=== PATIENT | female | born 1940 | race Caucasian/White ===

== ENCOUNTER 2018-02-28 10:39 | Inpatient (IN) ==
[2018-02-28] MEDS ORDERED: Isovue-370 500 ML INFUS..BTL IV ONE (11:08)
--- NOTE | 2018-02-28 11:10 | Emergency Department Note ---
Disposition Clinical Impression: Hyponatremia Anemia Qualifiers: Anemia type: unspecified type Qualified Code(s): D64.9 - Anemia, unspecified UTI (urinary tract infection) Qualifiers: Urinary tract infection type: site unspecified Hematuria presence: without hematuria Qualified Code(s): N39.0 - Urinary tract infection, site not specified GI bleed Qualifiers: GI bleed type/associated pathology: unspecified gastrointestinal hemorrhage type Qualified Code(s): K92.2 - Gastrointestinal hemorrhage, unspecified Abdominal pain Qualifiers: Abdominal location: lower abdomen, unspecified Qualified Code(s): R10.30 - Lower abdominal pain, unspecified Disposition: Admitted As Inpatient Condition: Fair Abdominal Pain HPI - General Chief Complaint: ED Abdominal Pain Stated Complaint: ABD Pain Time Seen by Provider: 02/28/18 11:06 Source: patient Nursing Notes Reviewed: Yes Vital Signs Reviewed: Yes - History of Present Illness HPI Narrative: 77-year-old female presents emergency department with concern for lower abdominal pain. Patient has possible cancer with metastasis and abdomen. Reportedly getting biopsies this coming Thursday. Reports that she came in today because her abdomen is more distended and more painful than it has been. She reported receiving paracentesis recently. She has had it twice. Denies any fevers. Denies any chills. Nausea nausea, vomiting. Denies any hematochezia or melena. Pain Scale: 9 - Related Data Home Medications Medication Instructions Recorded Confirmed Acetaminophen [Tylenol Arthritis] 650 mg PO TID PRN 02/28/18 02/28/18 Aspirin [Adult Aspirin] 81 mg PO DAILY 02/28/18 02/28/18 Atorvastatin [Lipitor] 40 mg PO HS 02/28/18 02/28/18 Cyanocobalamin (Vitamin B-12) 1,000 mcg PO DAILY 02/28/18 02/28/18 [Vitamin B-12] Ferrous Sulfate [Iron] 325 mg PO DAILY 02/28/18 02/28/18 GlipiZIDE [Glipizide ER] 10 mg PO DAILY 02/28/18 02/28/18 Metoprolol Succinate [Toprol Xl] 50 mg PO DAILY 02/28/18 02/28/18 Omeprazole [PriLOSEC] 20 mg PO DAILY 02/28/18 02/28/18 Ondansetron HCl [Zofran] 8 mg PO Q8H PRN 02/28/18 02/28/18 Pioglitazone HCl [Actos] 45 mg PO DAILY 02/28/18 02/28/18 Potassium 99 mg PO DAILY 02/28/18 02/28/18 Pramipexole Di-HCl [Pramipexole 0.125 mg PO DAILY 02/28/18 02/28/18 Dihydrochloride] traZODone [TraZODone] 50 mg PO HS 02/28/18 02/28/18 Allergies Allergy/AdvReac Type Severity Reaction Status Date / Time No Known Allergies Allergy Verified 09/02/15 12:42 All systems ED: reviewed and negative except as stated. Review of Systems: As Per HPI Constitutional: Denies: fever Cardiovascular: Reports: chest pain Respiratory: Denies: cough, dyspnea Gastrointestinal: Reports: abdominal pain. Denies: nausea, vomiting, melena, hematochezia Genitourinary: Denies: urgency, dysuria, frequency Musculoskeletal: Denies: back pain Neurological: Denies: headache, weakness, numbness, paresthesias Endocrine: Reports: fatigue Abdominal Pain PMH - Past Medical History Medical history: Reports: coronary artery disease, diabetes, hyperlipidemia, hypertension Female Surgical History: Reports: coronary bypass (CABG), hysterectomy Psychiatric history: Reports: no psych history - Social History Smoking status: Never smoker Alcohol use: Reports: none Drug use: Reports: none Physical Exam - General Limitations: no limitations General appearance: alert, in no apparent distress - Head Head exam: normocephalic - Eye Eye exam: Present: EOMI. Absent: scleral icterus - ENT ENT exam: mucous membranes moist - Neck Neck exam: Present: trachea midline - Chest Chest inspection: Present: symmetric chest wall rise - Respiratory Respiratory exam: Present: normal lung sounds bilaterally. Absent: respiratory distress, accessory muscle use - Cardiovascular Cardiovascular exam: Present: regular rate, normal rhythm, normal heart sounds - Abdominal Exam Abdominal exam: Present: soft, Non-Tender. Absent: distention, guarding, rebound, rigidity - Extremities Exam Extremities exam: Present: normal capillary refill - Back Exam Back exam: Present: full ROM - Neurological Exam Neurological exam: Present: alert, oriented X3, CN II-XII intact - Psychiatric Psychiatric exam: Present: normal affect, normal mood - Skin Skin exam: Present: warm, dry, intact, normal color. Absent: rash Course Vital Signs Temperature 98.4 F 02/28/18 10:58 Pulse Rate 88 02/28/18 10:58 Respiratory Rate 18 02/28/18 10:58 Blood Pressure 124/77 02/28/18 10:58 O2 Sat by Pulse Oximetry 95 02/28/18 10:58 Temperature 97.9 F 02/28/18 15:20 Pulse Rate 84 02/28/18 15:20 Respiratory Rate 18 02/28/18 15:20 Blood Pressure 136/57 02/28/18 15:20 O2 Sat by Pulse Oximetry 94 02/28/18 13:16 Oxygen Delivery Oxygen Delivery Room Air Abdominal Pain - MDM Narrative Medical decision making narrative: 77-year-old female presents emergency department with concern for worsening abdominal distention and pain in setting of liver cirrhosis with ascites. We obtained CT scan of abdomen and pelvis. It revealed extensive peritoneal carcinomatosis and small volume ascites. No definite primary cancer noted. One consideration of diagnostic paracentesis for cytology. Patient's hemoglobin is 7.6. This is a low as it has been. Patient reporting chest tightness. Patient will be given one unit of blood. Chest x-ray revealed bibasilar atelectasis. EKG revealed no ischemic ST changes. Patient hyponatremic with a sodium 129. As below in the past, but this is lower than previous obtain labs. Due to patient's worsening abdominal pain in setting of liver cirrhosis and ascites with her also stating that her abdomen has become more distended today, there is concern for possibility of spontaneous bacterial peritonitis. Patient was given Flagyl. Patient also has evidence of urinary tract infection. We have given a gram of Rocephin for it as well. Physical by medication here in the emergency department. This time, patient needs to be admitted for her anemia, and suspicion of spontaneous bacterial peritonitis. Issues of plan. Hemodynamically stable. Abdomen/Pelvis CT 02/28/18 11:08 IMPRESSION: Extensive peritoneal carcinomatosis and small volume ascites. No definite primary noted. Consider diagnostic paracentesis for cytology. Cirrhotic morphology of the liver. Cholelithiasis. D/ / Pete Vigil MD / Pete Vigil MD Interpreting Provider: Pete Vigil MD Chest X-Ray 02/28/18 11:09 IMPRESSION: Bibasilar atelectasis. D/ / Dallas Llanes MD / Dallas Llanes MD Interpreting Provider: Dallas Llanes MD Vital Signs Temperature 98.4 F 02/28/18 10:58 Pulse Rate 88 02/28/18 10:58 Respiratory Rate 18 02/28/18 10:58 Blood Pressure 124/77 02/28/18 10:58 O2 Sat by Pulse Oximetry 95 02/28/18 10:58 Temperature 97.9 F 02/28/18 15:20 Pulse Rate 84 02/28/18 15:20 Respiratory Rate 18 02/28/18 15:20 Blood Pressure 136/57 02/28/18 15:20 O2 Sat by Pulse Oximetry 94 02/28/18 13:16 Oxygen Delivery Oxygen Delivery Room Air - Lab Data Result diagrams: 02/28/18 11:22 02/28/18 11:22 Lab Results 02/28/18 02/28/18 02/28/18 Range/Units 11:22 11:22 13:11 WBC 12.4 H (4.3-11.1) K/mcL RBC 2.78 L (3.82-4.97) M/mcL Hgb 7.6 L (11.5-15.4) g/dL Hct 24.1 L (35.3-44.9) % MCV 86.7 (83.0-100.0) fL MCH 27.3 L (28.0-33.3) pg MCHC 31.5 L (31.6-35.5) g/dL RDW 14.6 H (11.5-14.5) % Plt Count 564 H (140-400) K/mcL MPV 9.6 (9.4-12.4) fL Immature Gran % 0.6 (0-4) % Seg Neutrophils % 86.6 % Lymphocytes % 4.2 % Monocytes % 8.2 % Eosinophils % 0.2 % Basophils % 0.2 % Neutrophils # 10.8 H (1.6-8.9) K/mcL Lymphocytes # 0.5 L (0.6-4.6) K/mcL Monocytes # 1.0 (0.0-1.3) K/mcL Eosinophils # 0.0 (0.0-0.6) K/mcL Basophils # 0.0 (0.0-0.2) K/mcL PT (9.4-12.1) Seconds INR Sodium 129 L (136-145) mEq/L Potassium 3.6 (3.5-5.1) mEq/L Chloride 94 L (98-107) mEq/L Carbon Dioxide 23 (23-29) mEq/L BUN 31 H (8-23) mg/dL Creatinine 1.47 H (0.60-1.20) mg/dL Est GFR ( Amer) 42 L (> 60) Est GFR (Non-Af Amer) 35 L (> 60) BUN/Creatinine Ratio 21 (6-26) Glucose 176 H (70-105) mg/dL Calculated Osmolality 279 L (280-300) Lactic Acid (0.5-2.2) mmol/L Calcium 9.1 (8.6-10.3) mg/dL Total Bilirubin 0.5 (0.3-1.0) mg/dL AST 18 (13-39) Units/L ALT 10 (7-52) Units/L Alkaline Phosphatase 135 H (34-104) Units/L Ammonia (16-53) mcmol/L Troponin I 0.03 (< 0.04) ng/mL B-Natriuretic Peptide (Less than 100) pg/mL Serum Total Protein 7.6 (6.4-8.9) g/dL Albumin 2.9 L (3.5-5.7) g/dL Globulin 4.7 H (2.4-3.5) g/dL Albumin/Globulin Ratio 0.6 L (1.1-2.2) Urine Color (Yellow) Urine Clarity (Clear) Urine pH (5.0-8.0) pH Units Ur Specific [place] (1.010-1.025) Urine Protein (Neg-Trace) mg/dL Urine Glucose (UA) (Normal) mg/dL Urine Ketones (Negative) mg/dL Urine Blood (Negative) Urine Nitrite (Negative) Urine Bilirubin (Negative) Urine Urobilinogen (Normal) mg/dL Ur Leukocyte Esterase (Negative) Urine Microscopic RBC (0-3) per hpf Urine Microscopic WBC (0-3) per hpf Ur Squamous Epith Cells (None-Few) per lpf Urine Bacteria (None-Few) per hpf Hyaline Casts (None-Few) per lpf Ur Culture Indicated? (NO) Stool Occult Bld Scrn (Negative) Blood Type O POSITIVE Antibody Screen NEGATIVE Crossmatch See Detail 02/28/18 02/28/18 02/28/18 Range/Units 13:19 13:19 13:19 WBC (4.3-11.1) K/mcL RBC (3.82-4.97) M/mcL Hgb (11.5-15.4) g/dL Hct (35.3-44.9) % MCV (83.0-100.0) fL MCH (28.0-33.3) pg MCHC (31.6-35.5) g/dL RDW (11.5-14.5) % Plt Count (140-400) K/mcL MPV (9.4-12.4) fL Immature Gran % (0-4) % Seg Neutrophils % % Lymphocytes % % Monocytes % % Eosinophils % % Basophils % % Neutrophils # (1.6-8.9) K/mcL Lymphocytes # (0.6-4.6) K/mcL Monocytes # (0.0-1.3) K/mcL Eosinophils # (0.0-0.6) K/mcL Basophils # (0.0-0.2) K/mcL PT 15.9 H (9.4-12.1) Seconds INR 1.4 Sodium (136-145) mEq/L Potassium (3.5-5.1) mEq/L Chloride (98-107) mEq/L Carbon Dioxide (23-29) mEq/L BUN (8-23) mg/dL Creatinine (0.60-1.20) mg/dL Est GFR ( Amer) (> 60) Est GFR (Non-Af Amer) (> 60) BUN/Creatinine Ratio (6-26) Glucose (70-105) mg/dL Calculated Osmolality (280-300) Lactic Acid 0.5 (0.5-2.2) mmol/L Calcium (8.6-10.3) mg/dL Total Bilirubin (0.3-1.0) mg/dL AST (13-39) Units/L ALT (7-52) Units/L Alkaline Phosphatase (34-104) Units/L Ammonia < 10 L (16-53) mcmol/L Troponin I (< 0.04) ng/mL B-Natriuretic Peptide (Less than 100) pg/mL Serum Total Protein (6.4-8.9) g/dL Albumin (3.5-5.7) g/dL Globulin (2.4-3.5) g/dL Albumin/Globulin Ratio (1.1-2.2) Urine Color (Yellow) Urine Clarity (Clear) Urine pH (5.0-8.0) pH Units Ur Specific [place] (1.010-1.025) Urine Protein (Neg-Trace) mg/dL Urine Glucose (UA) (Normal) mg/dL Urine Ketones (Negative) mg/dL Urine Blood (Negative) Urine Nitrite (Negative) Urine Bilirubin (Negative) Urine Urobilinogen (Normal) mg/dL Ur Leukocyte Esterase (Negative) Urine Microscopic RBC (0-3) per hpf Urine Microscopic WBC (0-3) per hpf Ur Squamous Epith Cells (None-Few) per lpf Urine Bacteria (None-Few) per hpf Hyaline Casts (None-Few) per lpf Ur Culture Indicated? (NO) Stool Occult Bld Scrn (Negative) Blood Type Antibody Screen Crossmatch 02/28/18 02/28/18 02/28/18 Range/Units 13:19 13:29 13:36 WBC (4.3-11.1) K/mcL RBC (3.82-4.97) M/mcL Hgb (11.5-15.4) g/dL Hct (35.3-44.9) % MCV (83.0-100.0) fL MCH (28.0-33.3) pg MCHC (31.6-35.5) g/dL RDW (11.5-14.5) % Plt Count (140-400) K/mcL MPV (9.4-12.4) fL Immature Gran % (0-4) % Seg Neutrophils % % Lymphocytes % % Monocytes % % Eosinophils % % Basophils % % Neutrophils # (1.6-8.9) K/mcL Lymphocytes # (0.6-4.6) K/mcL Monocytes # (0.0-1.3) K/mcL Eosinophils # (0.0-0.6) K/mcL Basophils # (0.0-0.2) K/mcL PT (9.4-12.1) Seconds INR Sodium (136-145) mEq/L Potassium (3.5-5.1) mEq/L Chloride (98-107) mEq/L Carbon Dioxide (23-29) mEq/L BUN (8-23) mg/dL Creatinine (0.60-1.20) mg/dL Est GFR ( Amer) (> 60) Est GFR (Non-Af Amer) (> 60) BUN/Creatinine Ratio (6-26) Glucose (70-105) mg/dL Calculated Osmolality (280-300) Lactic Acid (0.5-2.2) mmol/L Calcium (8.6-10.3) mg/dL Total Bilirubin (0.3-1.0) mg/dL AST (13-39) Units/L ALT (7-52) Units/L Alkaline Phosphatase (34-104) Units/L Ammonia (16-53) mcmol/L Troponin I (< 0.04) ng/mL B-Natriuretic Peptide 145 H (Less than 100) pg/mL Serum Total Protein (6.4-8.9) g/dL Albumin (3.5-5.7) g/dL Globulin (2.4-3.5) g/dL Albumin/Globulin Ratio (1.1-2.2) Urine Color Yellow (Yellow) Urine Clarity Cloudy A (Clear) Urine pH 5.5 (5.0-8.0) pH Units Ur Specific [place] > 1.030 H (1.010-1.025) Urine Protein 30 H (Neg-Trace) mg/dL Urine Glucose (UA) Normal (Normal) mg/dL Urine Ketones Trace H (Negative) mg/dL Urine Blood Negative (Negative) Urine Nitrite Positive A (Negative) Urine Bilirubin Negative (Negative) Urine Urobilinogen Normal (Normal) mg/dL Ur Leukocyte Esterase Moderate H (Negative) Urine Microscopic RBC 0-3 (0-3) per hpf Urine Microscopic WBC 5-15 H (0-3) per hpf Ur Squamous Epith Cells Few (None-Few) per lpf Urine Bacteria Many H (None-Few) per hpf Hyaline Casts Few (None-Few) per lpf Ur Culture Indicated? YES A (NO) Stool Occult Bld Scrn Positive A (Negative) Blood Type Antibody Screen Crossmatch - EKG Data EKG attestation: Yes I reviewed and interpreted this EKG. EKG results narrative: 11:27 Ventricular rate 89 bpm, TN of 145 ms, QRS duration 87 ms, QT 372 ms, left axis deviation. Sinus rhythm ventricular rate of 89 beats for minute. No evidence of any is chemic ST changes on this EKG.
[2018-02-28] MEDS ORDERED: Ondansetron 4 MG/2 ML VIAL IVP ONE (11:23)
[2018-02-28] MEDS ORDERED: 0.9 % Sodium Chloride 1,000 ML IVC ONE (11:23)
[2018-02-28] MEDS ORDERED: *HR* FentaNYL (PF) 100 MCG/2 ML VIAL IVP ONE (11:23)
[2018-02-28 11:46] LABS: Basophils % 0.2 %; Eosinophils % 0.2 %; Hematocrit 24.1 % (35.3-44.9); Hemoglobin 7.6 g/dL (11.5-15.4); Immature Granulocytes % 0.6 % (0-4); Lymphocytes # 0.5 K/mcL (0.6-4.6); Lymphocytes % 4.2 %; Mean Corpuscular HGB Conc 31.5 g/dL (31.6-35.5); Mean Corpuscular Hemoglobin 27.3 pg (28.0-33.3); Mean Corpuscular Volume 86.7 fL (83.0-100.0); Mean Platelet Volume 9.6 fL (9.4-12.4); Monocytes % 8.2 %; Neutrophils # 10.8 K/mcL (1.6-8.9); Platelet Count 564 K/mcL (140-400); Red Blood Count 2.78 M/mcL (3.82-4.97); Red Cell Distribution Width 14.6 % (11.5-14.5); Segmented Neutrophils % 86.6 %
[2018-02-28 12:00] LABS: Albumin 2.9 g/dL (3.5-5.7); Albumin/Globulin Ratio 0.6 (1.1-2.2); Bilirubin,Total 0.5 mg/dL (0.3-1.0); Calcium 9.1 mg/dL (8.6-10.3); Globulin 4.7 g/dL (2.4-3.5); Potassium 3.6 mEq/L (3.5-5.1); Total Protein 7.6 g/dL (6.4-8.9)
[2018-02-28 12:01] LABS: Troponin I 0.03 ng/mL (< 0.04)
[2018-02-28] MEDS ORDERED: MetroNIDAZOLE 500 MG/100 ML 500 MG/100 ML BAG IVPB STA (13:14)
[2018-02-28 13:43] LABS: Bilirubin,Urine Negative (Negative); Blood,Urine Negative (Negative); Clarity,Urine Cloudy (Clear); Color,Urine Yellow (Yellow); Glucose,Urine (UA) Normal (Normal); Ketones,Urine Trace mg/dL (Negative); Leukocyte Esterase,Urine Moderate (Negative); Nitrite,Urine Positive (Negative); PH,Urine 5.5 pH Units (5.0-8.0); Protein,Urine 30 mg/dL (Neg-Trace); Specific Gravity,Urine > 1.030 (1.010-1.025); Urobilinogen,Urine Normal (Normal)
[2018-02-28] MEDS ORDERED: cefTRIAXone 1,000 MG in Water for inj. (sterile) 20 ML 10 ML IVP ONE (13:52)
[2018-02-28 13:55] LABS: INR 1.4; Prothrombin Time 15.9 Seconds (9.4-12.1)
[2018-02-28 13:58] LABS: Bacteria,Urine Many per hpf (None-Few); Hyaline Casts,Urine Few per lpf (None-Few); RBC,Urine 0-3 per hpf (0-3); Squamous Epithelial Cell,Urine Few per lpf (None-Few)
--- NOTE | 2018-02-28 14:33 | Emergency Department Note ---
Disposition Clinical Impression: Anemia Qualifiers: Anemia type: unspecified type Qualified Code(s): D64.9 - Anemia, unspecified UTI (urinary tract infection) Qualifiers: Urinary tract infection type: site unspecified Hematuria presence: without hematuria Qualified Code(s): N39.0 - Urinary tract infection, site not specified GI bleed Qualifiers: GI bleed type/associated pathology: unspecified gastrointestinal hemorrhage type Qualified Code(s): K92.2 - Gastrointestinal hemorrhage, unspecified Disposition: Admitted As Inpatient Forms: ED Satisfaction Letter, Work/School Release General Adult HPI - General Chief complaint: ED Abdominal Pain Stated complaint: ABD Pain Time Seen by Provider: 02/28/18 11:06 Source: patient Limitations: no limitations - History of Present Illness Pain Scale: 6 - Related Data Home Medications Medication Instructions Recorded Confirmed Aspirin [Adult Low Dose Aspirin EC] 81 mg PO DAILY 09/02/15 11/30/15 Atorvastatin [Lipitor] 40 mg PO HS 09/02/15 11/30/15 Biotin 5,000 mcg PO DAILY 09/02/15 11/30/15 Gabapentin [Gralise] 600 mg PO TID 09/02/15 11/30/15 Glucosamn/Condroitn/C/Mn/[place] 1 each PO BID 09/02/15 11/30/15 [[facility] Glucosamine Chondroitin Tb] Metoprolol [Lopressor] 50 mg PO DAILY 09/02/15 11/30/15 Omeprazole 20 mg PO DAILY 09/02/15 11/30/15 Potassium 595 mg PO DAILY 09/02/15 11/30/15 SitaGLIPtin [Januvia] 100 mg PO DAILY 09/02/15 11/30/15 glipiZIDE [Glucotrol] 5 mg PO 0800 09/02/15 11/30/15 metFORMIN [Glucophage] 500 mg PO BIDWM 09/02/15 11/30/15 Previous Rx's Medication Instructions Recorded Ferrous Sulfate 325 mg PO BIDWM #60 tablet 11/30/15 Calcium Carbonate/Vitamin D3 1 each PO BID #60 tablet 01/01/16 [Calcium 500 + D Tablet] Nitrofurantoin (BID) [Macrobid] 100 mg PO BID #14 capsule 02/04/16 Allergies Allergy/AdvReac Type Severity Reaction Status Date / Time No Known Allergies Allergy Verified 09/02/15 12:42 Past Medical History - Past Medical History Medical history: Reports: coronary artery disease, diabetes, hyperlipidemia, hypertension Surgical history: Reports: coronary bypass (CABG) Psychiatric history: Reports: no psych history - Social History Smoking Status: Never smoker Smokeless Tobacco Status: No Alcohol use: Reports: none Drug use: Reports: none Physical Exam - General Limitations: no limitations General appearance: alert, in no apparent distress Course Vital Signs Temperature 98.4 F 02/28/18 10:58 Pulse Rate 88 02/28/18 10:58 Respiratory Rate 18 02/28/18 10:58 Blood Pressure 124/77 02/28/18 10:58 O2 Sat by Pulse Oximetry 95 02/28/18 10:58 Temperature 98.2 F 02/28/18 13:16 Pulse Rate 86 02/28/18 13:16 Respiratory Rate 20 02/28/18 13:16 Blood Pressure 139/65 02/28/18 13:16 O2 Sat by Pulse Oximetry 94 02/28/18 13:16 Oxygen Delivery Oxygen Delivery Room Air Medical Decision Making - Lab Data Result diagrams: 02/28/18 11:22 02/28/18 11:22 Lab Results 02/28/18 02/28/18 02/28/18 Range/Units 11:22 11:22 13:11 WBC 12.4 H (4.3-11.1) K/mcL RBC 2.78 L (3.82-4.97) M/mcL Hgb 7.6 L (11.5-15.4) g/dL Hct 24.1 L (35.3-44.9) % MCV 86.7 (83.0-100.0) fL MCH 27.3 L (28.0-33.3) pg MCHC 31.5 L (31.6-35.5) g/dL RDW 14.6 H (11.5-14.5) % Plt Count 564 H (140-400) K/mcL MPV 9.6 (9.4-12.4) fL Immature Gran % 0.6 (0-4) % Seg Neutrophils % 86.6 % Lymphocytes % 4.2 % Monocytes % 8.2 % Eosinophils % 0.2 % Basophils % 0.2 % Neutrophils # 10.8 H (1.6-8.9) K/mcL Lymphocytes # 0.5 L (0.6-4.6) K/mcL Monocytes # 1.0 (0.0-1.3) K/mcL Eosinophils # 0.0 (0.0-0.6) K/mcL Basophils # 0.0 (0.0-0.2) K/mcL PT (9.4-12.1) Seconds INR Sodium 129 L (136-145) mEq/L Potassium 3.6 (3.5-5.1) mEq/L Chloride 94 L (98-107) mEq/L Carbon Dioxide 23 (23-29) mEq/L BUN 31 H (8-23) mg/dL Creatinine 1.47 H (0.60-1.20) mg/dL Est GFR ( Amer) 42 L (> 60) Est GFR (Non-Af Amer) 35 L (> 60) BUN/Creatinine Ratio 21 (6-26) Glucose 176 H (70-105) mg/dL Calculated Osmolality 279 L (280-300) Lactic Acid (0.5-2.2) mmol/L Calcium 9.1 (8.6-10.3) mg/dL Total Bilirubin 0.5 (0.3-1.0) mg/dL AST 18 (13-39) Units/L ALT 10 (7-52) Units/L Alkaline Phosphatase 135 H (34-104) Units/L Ammonia (16-53) mcmol/L Troponin I 0.03 (< 0.04) ng/mL B-Natriuretic Peptide (Less than 100) pg/mL Serum Total Protein 7.6 (6.4-8.9) g/dL Albumin 2.9 L (3.5-5.7) g/dL Globulin 4.7 H (2.4-3.5) g/dL Albumin/Globulin Ratio 0.6 L (1.1-2.2) Urine Color (Yellow) Urine Clarity (Clear) Urine pH (5.0-8.0) pH Units Ur Specific [place] (1.010-1.025) Urine Protein (Neg-Trace) mg/dL Urine Glucose (UA) (Normal) mg/dL Urine Ketones (Negative) mg/dL Urine Blood (Negative) Urine Nitrite (Negative) Urine Bilirubin (Negative) Urine Urobilinogen (Normal) mg/dL Ur Leukocyte Esterase (Negative) Urine Microscopic RBC (0-3) per hpf Urine Microscopic WBC (0-3) per hpf Ur Squamous Epith Cells (None-Few) per lpf Urine Bacteria (None-Few) per hpf Hyaline Casts (None-Few) per lpf Ur Culture Indicated? (NO) Stool Occult Bld Scrn (Negative) Blood Type O POSITIVE Antibody Screen NEGATIVE Crossmatch See Detail 02/28/18 02/28/18 02/28/18 Range/Units 13:19 13:19 13:19 WBC (4.3-11.1) K/mcL RBC (3.82-4.97) M/mcL Hgb (11.5-15.4) g/dL Hct (35.3-44.9) % MCV (83.0-100.0) fL MCH (28.0-33.3) pg MCHC (31.6-35.5) g/dL RDW (11.5-14.5) % Plt Count (140-400) K/mcL MPV (9.4-12.4) fL Immature Gran % (0-4) % Seg Neutrophils % % Lymphocytes % % Monocytes % % Eosinophils % % Basophils % % Neutrophils # (1.6-8.9) K/mcL Lymphocytes # (0.6-4.6) K/mcL Monocytes # (0.0-1.3) K/mcL Eosinophils # (0.0-0.6) K/mcL Basophils # (0.0-0.2) K/mcL PT 15.9 H (9.4-12.1) Seconds INR 1.4 Sodium (136-145) mEq/L Potassium (3.5-5.1) mEq/L Chloride (98-107) mEq/L Carbon Dioxide (23-29) mEq/L BUN (8-23) mg/dL Creatinine (0.60-1.20) mg/dL Est GFR ( Amer) (> 60) Est GFR (Non-Af Amer) (> 60) BUN/Creatinine Ratio (6-26) Glucose (70-105) mg/dL Calculated Osmolality (280-300) Lactic Acid 0.5 (0.5-2.2) mmol/L Calcium (8.6-10.3) mg/dL Total Bilirubin (0.3-1.0) mg/dL AST (13-39) Units/L ALT (7-52) Units/L Alkaline Phosphatase (34-104) Units/L Ammonia < 10 L (16-53) mcmol/L Troponin I (< 0.04) ng/mL B-Natriuretic Peptide (Less than 100) pg/mL Serum Total Protein (6.4-8.9) g/dL Albumin (3.5-5.7) g/dL Globulin (2.4-3.5) g/dL Albumin/Globulin Ratio (1.1-2.2) Urine Color (Yellow) Urine Clarity (Clear) Urine pH (5.0-8.0) pH Units Ur Specific [place] (1.010-1.025) Urine Protein (Neg-Trace) mg/dL Urine Glucose (UA) (Normal) mg/dL Urine Ketones (Negative) mg/dL Urine Blood (Negative) Urine Nitrite (Negative) Urine Bilirubin (Negative) Urine Urobilinogen (Normal) mg/dL Ur Leukocyte Esterase (Negative) Urine Microscopic RBC (0-3) per hpf Urine Microscopic WBC (0-3) per hpf Ur Squamous Epith Cells (None-Few) per lpf Urine Bacteria (None-Few) per hpf Hyaline Casts (None-Few) per lpf Ur Culture Indicated? (NO) Stool Occult Bld Scrn (Negative) Blood Type Antibody Screen Crossmatch 02/28/18 02/28/18 02/28/18 Range/Units 13:19 13:29 13:36 WBC (4.3-11.1) K/mcL RBC (3.82-4.97) M/mcL Hgb (11.5-15.4) g/dL Hct (35.3-44.9) % MCV (83.0-100.0) fL MCH (28.0-33.3) pg MCHC (31.6-35.5) g/dL RDW (11.5-14.5) % Plt Count (140-400) K/mcL MPV (9.4-12.4) fL Immature Gran % (0-4) % Seg Neutrophils % % Lymphocytes % % Monocytes % % Eosinophils % % Basophils % % Neutrophils # (1.6-8.9) K/mcL Lymphocytes # (0.6-4.6) K/mcL Monocytes # (0.0-1.3) K/mcL Eosinophils # (0.0-0.6) K/mcL Basophils # (0.0-0.2) K/mcL PT (9.4-12.1) Seconds INR Sodium (136-145) mEq/L Potassium (3.5-5.1) mEq/L Chloride (98-107) mEq/L Carbon Dioxide (23-29) mEq/L BUN (8-23) mg/dL Creatinine (0.60-1.20) mg/dL Est GFR ( Amer) (> 60) Est GFR (Non-Af Amer) (> 60) BUN/Creatinine Ratio (6-26) Glucose (70-105) mg/dL Calculated Osmolality (280-300) Lactic Acid (0.5-2.2) mmol/L Calcium (8.6-10.3) mg/dL Total Bilirubin (0.3-1.0) mg/dL AST (13-39) Units/L ALT (7-52) Units/L Alkaline Phosphatase (34-104) Units/L Ammonia (16-53) mcmol/L Troponin I (< 0.04) ng/mL B-Natriuretic Peptide 145 H (Less than 100) pg/mL Serum Total Protein (6.4-8.9) g/dL Albumin (3.5-5.7) g/dL Globulin (2.4-3.5) g/dL Albumin/Globulin Ratio (1.1-2.2) Urine Color Yellow (Yellow) Urine Clarity Cloudy A (Clear) Urine pH 5.5 (5.0-8.0) pH Units Ur Specific [place] > 1.030 H (1.010-1.025) Urine Protein 30 H (Neg-Trace) mg/dL Urine Glucose (UA) Normal (Normal) mg/dL Urine Ketones Trace H (Negative) mg/dL Urine Blood Negative (Negative) Urine Nitrite Positive A (Negative) Urine Bilirubin Negative (Negative) Urine Urobilinogen Normal (Normal) mg/dL Ur Leukocyte Esterase Moderate H (Negative) Urine Microscopic RBC 0-3 (0-3) per hpf Urine Microscopic WBC 5-15 H (0-3) per hpf Ur Squamous Epith Cells Few (None-Few) per lpf Urine Bacteria Many H (None-Few) per hpf Hyaline Casts Few (None-Few) per lpf Ur Culture Indicated? YES A (NO) Stool Occult Bld Scrn Positive A (Negative) Blood Type Antibody Screen Crossmatch Attestation Statement - Attestation Attestation: I examined this patient and my medical decision-making was reviewed with the Resident Physician. I agree with the documented findings, disposition and treatment plan as described except to the extent set forth below. 77 year old female presents to the ED with complaints of abdoinal pain and was most recently diagnosed with peritoneal cariconamatosis and appears ot be anermic on labs with UTI and increased ascites. Concerns for SBP vs. UTI , fecal hemoccult is positive we will transfuse inthe interim period and then admit to medicine
[2018-02-28] MEDS ORDERED: 0.9 % Sodium Chloride 500 ML ONE (14:56)
[2018-02-28] MEDS ORDERED: Naloxone 0.4 MG/ML INJ IVP PRN (15:34)
--- NOTE | 2018-02-28 16:16 | Internal Med History&Physical ---
Date of Encounter: 02/28/18 Time of Encounter: 16:56 Internal Medicine - H&P: HPI Chief complaint: Abdominal pain, distention Admitted From: Emergency Dept Plans for Post Hospital Care: Home History of present illness: Ms. Cunningham is a 77 year old female patient with a history of liver cirrhosis who presented to the ER with complaints of worsening abdominal pain, and abdominal distention that has been going on for at least a month. She had been seen at urgent care in [place] and was scheduled for biopsy for abnormal lesions noted on the CT scan there to be done later this week. She however continued to have significant abdominal pain so she came to the ER. She denies any hematemesis or melena. She does take iron and so her stools are always melanotic. She has not noted any weight loss but has been anorexic. Presently she feels somewhat better but continues to have nausea and generalized abdominal pain mainly in the epigastric and lower abdominal region. She also reports recent episode of chest pain. She has a history of coronary artery disease with CABG. She does take aspirin which was held in anticipation for biopsy planned for later this week. Past Med Surg Social Fam HX - Past Medical History Attestation: Yes The following information was validated with the patient. Source: patient Medical history: coronary artery disease, diabetes, hyperlipidemia, hypertension Additional medical history: DIABETIC NEUROPATHY Psychiatric history: no psych history - Past Surgical History Surgical History: coronary bypass (CABG) - Social History Smoking Status: Never smoker Smokeless Tobacco Status: No Alcohol use: none Drug use: none Internal Medicine - H&P: Meds Acetaminophen [Tylenol Arthritis] 650 mg PO TID PRN 02/28/18 [History] Aspirin [Adult Aspirin] 81 mg PO DAILY 02/28/18 [History] Atorvastatin [Lipitor] 40 mg PO HS 02/28/18 [History] Cyanocobalamin (Vitamin B-12) [Vitamin B-12] 1,000 mcg PO DAILY 02/28/18 [History] Ferrous Sulfate [Iron] 325 mg PO DAILY 02/28/18 [History] GlipiZIDE [Glipizide ER] 10 mg PO DAILY 02/28/18 [History] Metoprolol Succinate [Toprol Xl] 50 mg PO DAILY 02/28/18 [History] Omeprazole [PriLOSEC] 20 mg PO DAILY 02/28/18 [History] Ondansetron HCl [Zofran] 8 mg PO Q8H PRN 02/28/18 [History] Pioglitazone HCl [Actos] 45 mg PO DAILY 02/28/18 [History] Potassium 99 mg PO DAILY 02/28/18 [History] Pramipexole Di-HCl [Pramipexole Dihydrochloride] 0.125 mg PO DAILY 02/28/18 [History] traZODone [TraZODone] 50 mg PO HS 02/28/18 [History] Allergy/AdvReac Type Severity Reaction Status Date / Time No Known Allergies Allergy Verified 09/02/15 12:42 All Systems PM: A 10-system review of systems was performed and is negative for pertinent findi ngs except as documented above in the HPI. - Constitutional Constitutional: anorexia, fatigue, malaise, no chills, no fever(s), no night sweats - EENT Eyes: no change in vision, no discharge, no pain, no photophobia Ears: no ear discharge, no ear pain, no tinnitus Nose, mouth and throat: no dysphagia, no nasal discharge, no neck pain, no sore throat - Cardiovascular Cardiovascular ROS IM: no chest pain, no diaphoresis, no dyspnea, no lightheadedness, no palpitations, no syncope - Respiratory Respiratory: no cough, no dyspnea, no wheezing, no excessive phlegm production - Gastrointestinal Gastrointestinal: as per HPI, abdominal pain, no diarrhea, no hematemesis, no hematochezia, no melena, no nausea, no vomiting - Genitourinary Genitourinary: no change in urinary stream, no dysuria, no flank pain, no darya turia - Musculoskeletal Musculoskeletal ROS IM: no numbness, no tingling - Integumentary Integumentary IM: jaundice, no rash, no unusual bruising - Neurological Neurological ROS: no confusion, no convulsions, no focal weakness, no numbness, no tingling, no tremor(s) - Hematologic/Lymphatic Hematologic/Lymphatic: no easy bruising - Constitutional Vitals: Temp Pulse Resp BP Pulse Ox 97.9 F 84 18 136/57 94 02/28/18 15:20 02/28/18 15:20 02/28/18 15:20 02/28/18 15:20 02/28/18 13:16 General appearance: Present: cooperative, mild distress, A&O X 3, pleasant, answers questions appropriately Exam: . - Eye Eye exam: Present: scleral icterus - Neck Neck exam general surgery: Present: supple, trachea midline. Absent: lymphadenopathy - Respiratory Respiratory exam: Present: CTAB. Absent: accessory muscle use, rales, rhonchi, wheezes - Cardiovascular Cardiovascular exam: Present: RRR, +S1, +S2. Absent: diastolic murmur, gallop, rubs, systolic murmur - GI/Abdominal GI/Abdominal exam: Present: distended, normal bowel sounds, soft, tenderness (epigastric and lower quadrant), no peritoneal signs - Extremities Exam Extremities exam: Present: pedal edema, warm, radial pulses palpable and s ymmetrical. Absent: calf tenderness, cyanotic - Neurological Exam Neurological exam: Present: alert, oriented X3, no focal deficits. Absent: facial droop, speech deficit - Skin Skin exam: Present: dry, intact Additional comments: Jaundice Internal Med - H&P Results - Labs CBC & Chem 7: 02/28/18 11:22 02/28/18 11:22 Labs: Short CBC 02/28/18 Range/Units 11:22 WBC 12.4 H (4.3-11.1) K/mcL Hgb 7.6 L (11.5-15.4) g/dL Hct 24.1 L (35.3-44.9) % Plt Count 564 H (140-400) K/mcL Neutrophils # 10.8 H (1.6-8.9) K/mcL BMP 02/28/18 11:22 Sodium 129 L Potassium 3.6 Chloride 94 L Carbon Dioxide 23 BUN 31 H Creatinine 1.47 H Glucose 176 H Calcium 9.1 Cardiac Enzymes 02/28/18 Range/Units 11:22 Troponin I 0.03 (< 0.04) ng/mL Liver Function 02/28/18 Range/Units 11:22 Total Bilirubin 0.5 (0.3-1.0) mg/dL AST 18 (13-39) Units/L ALT 10 (7-52) Units/L Alkaline Phosphatase 135 H (34-104) Units/L Albumin 2.9 L (3.5-5.7) g/dL Urine 02/28/18 Range/Units 13:29 Urine Color Yellow (Yellow) Urine Clarity Cloudy A (Clear) Urine pH 5.5 (5.0-8.0) pH Units Ur Specific [place] > 1.030 H (1.010-1.025) Urine Protein 30 H (Neg-Trace) mg/dL Urine Glucose (UA) Normal (Normal) mg/dL - Impressions ITS Impressions Abdomen/Pelvis CT 02/28/18 11:08 IMPRESSION: Extensive peritoneal carcinomatosis and small volume ascites. No definite primary noted. Consider diagnostic paracentesis for cytology. Cirrhotic morphology of the liver. Cholelithiasis. D/ / Pete Vigil MD / Pete Vigil MD Interpreting Provider: Pete Vigil MD Chest X-Ray 02/28/18 11:09 IMPRESSION: Bibasilar atelectasis. D/ / Dallas Llanes MD / Dallas Llanes MD Interpreting Provider: Dallas Llanes MD - Assessment and plan (1) Abdominal pain Current Visit: Yes Status: Acute Assessment and plan: Patient has acute abdominal pain mainly in the epigastric and lower abdominal quadrants. Most likely related to underlying peritoneal carcinomatosis. Will treat symptomatically. Plan for paracentesis tomorrow. Qualifiers: Abdominal location: generalized Qualified Code(s): R10.84 - Generalized abdominal pain (2) Peritoneal carcinomatosis Current Visit: Yes Status: Suspected Assessment and plan: CT scan findings suggestive of peritoneal carcinomatosis. We will consult interventional radiology to evaluate and possibly do paracentesis and mesenteric biopsy. Primary unknown. (3) UTI (urinary tract infection) Current Visit: Yes Status: Acute Assessment and plan: Patient's urinalysis suggests acute UTI. CT scan of the abdomen and pelvis also showed 8 mm distal ureteral stone without hydronephrosis. Consulted urology. Will also gently hydrate patient. Qualifiers: Urinary tract infection type: acute cystitis Hematuria presence: without hematuria Qualified Code(s): N30.00 - Acute cystitis without hematuria (4) Anemia Current Visit: Yes Status: Acute Assessment and plan: Acute on chronic anemia. Stool positive for occult blood. Patient receiving 1 unit PRBC. She does have underlying chronic kidney disease. Will monitor blood counts closely. Place patient on PPI. Qualifiers: Anemia type: unspecified type Qualified Code(s): D64.9 - Anemia, unspecified (5) CAD (coronary artery disease) Current Visit: Yes Status: Chronic Assessment and plan: She reported some chest pain occasionally. Not currently having chest pain. Troponins 0.03. Will trend. Monitor with telemetry. Aspirin on hold for biopsy. Qualifiers: Coronary Disease-Associated Artery/Lesion type: [place] artery [place] vs. transplanted heart: [place] heart Associated angina: without angina Qualified Code(s): I25.10 - Atherosclerotic heart disease of [place] coronary artery without angina pectoris (6) CKD (chronic kidney disease) stage 3, GFR 30-59 ml/min Current Visit: Yes Status: Acute Assessment and plan: Creatinine is 1.47. Baseline between 1.2 and 1.5. CK D at baseline. (7) Diabetes mellitus Current Visit: Yes Status: Chronic Assessment and plan: Monitor blood sugars. Will place patient on sliding scale insulin. Qualifiers: Diabetes mellitus type: type 2 Diabetes mellitus complication status: with kidney complications Diabetes mellitus complication detail: with chronic kidney disease Chronic kidney disease stage: stage 3 (moderate) Qualified Code(s): E11.22 - Type 2 diabetes mellitus with diabetic chronic kidney disease; N18.3 - Chronic kidney disease, stage 3 (moderate) (8) Essential hypertension Current Visit: Yes Status: Chronic Assessment and plan: Blood pressure elevated this time. We will resume home medications. Continue to monitor blood pressure closely. - Time Spent With Patient Total time spent is greater than 50% in coordination of care (as documented) at patient's floor/unit and/or counseling patient:
[2018-02-28] MEDS ORDERED: *HR* Promethazine 25 MG/ML VIAL IVP PRN (17:19)
[2018-02-28] MEDS: 0.9 % Sodium Chloride 1,000 ML IVC SCH (18:10)
[2018-02-28] MEDS: traZODone 50 MG TABLET PO SCH (20:10)
[2018-02-28] MEDS: OXYCODONE Oral CONC 10 MG/0.5 ML ORAL.SYG SL PRN (20:10)
[2018-03-01] MEDS: 0.9 % Sodium Chloride 1,000 ML IVC SCH (06:16)
[2018-03-01 06:24] LABS: Basophils % 0.1 %; Eosinophils # 0.1 K/mcL (0.0-0.6); Eosinophils % 1.3 %; Hematocrit 22.2 % (35.3-44.9); Hemoglobin 7.1 g/dL (11.5-15.4); Immature Granulocytes % 0.8 % (0-4); Lymphocytes # 0.6 K/mcL (0.6-4.6); Lymphocytes % 7.5 %; Mean Corpuscular Hemoglobin 27.4 pg (28.0-33.3); Mean Corpuscular Volume 85.7 fL (83.0-100.0); Mean Platelet Volume 9.8 fL (9.4-12.4); Monocytes # 0.9 K/mcL (0.0-1.3); Monocytes % 11.2 %; Neutrophils # 6.2 K/mcL (1.6-8.9); Platelet Count 497 K/mcL (140-400); Red Blood Count 2.59 M/mcL (3.82-4.97); Red Cell Distribution Width 14.9 % (11.5-14.5); Segmented Neutrophils % 79.1 %
[2018-03-01 06:42] LABS: Alanine Aminotransferase 7 Units/L (7-52); Albumin 2.4 g/dL (3.5-5.7); Albumin/Globulin Ratio 0.6 (1.1-2.2); Alkaline Phosphatase 105 Units/L (34-104); Aspartate Amino Transferase 14 Units/L (13-39); BUN/Creatinine Ratio 21 (6-26); Bilirubin,Total 0.4 mg/dL (0.3-1.0); Blood Urea Nitrogen 22 mg/dL (8-23); Calcium 8.6 mg/dL (8.6-10.3); Carbon Dioxide 23 mEq/L (23-29); Chloride 104 mEq/L (98-107); Globulin 3.8 g/dL (2.4-3.5); Glucose 108 mg/dL (70-105); Osmolality,Calculated 286 (280-300); Potassium 3.3 mEq/L (3.5-5.1); Sodium 136 mEq/L (136-145); Total Protein 6.2 g/dL (6.4-8.9); eGFR For Non-African Americans 50 (> 60)
[2018-03-01] MEDS ORDERED: 0.9 % Sodium Chloride 250 ML ONE (09:34)
[2018-03-01] MEDS: Metoprolol XL (24 HR) Succ 50 MG TAB.ER.24H PO SCH (09:43)
[2018-03-01] MEDS: cefTRIAXone 1,000 MG in 0.9 % Sodium Chloride Mini Bag 100 ML IVPB SCH (09:43)
[2018-03-01] MEDS: Cyanocobalamin (B-12) 1,000 MCG TABLET PO SCH (09:43)
--- NOTE | 2018-03-01 11:02 | Internal Med Progress Note ---
Hospitalist Progress Note - Encounter Date of Encounter: 03/01/18 Time of Encounter: 11:06 - Subjective Interval History: Patient is awake and alert. She feels somewhat better. Her pain in her abdomen has improved. Denies any fevers or chills. No hematemesis or melena. She does feel tired and continues to have poor appetite. She did receive pain m edications last night which seemed to improve her pain. Her abdomen remains distended. - Exam Vitals: Temp Pulse Resp BP Pulse Ox 98 F 92 18 136/74 90 03/01/18 10:05 03/01/18 10:05 03/01/18 10:05 03/01/18 10:05 03/01/18 10:05 Exam: General: Patient is alert, no acute distress, oriented x 3 Respiratory: Good respiratory effort. Normal breath sounds. No wheezing or crackles. Cardiovascular: Regular rate and rhythm. s1 and s2 normal No clicks, rubs, gallops, or murmurs. No pedal edema Abdomen: Abdomen is soft, distended. Tender in the lower quadrants. Bowel sounds are present Musculoskeletal: Spontaneously moving all extremities Skin: warm, dry, intact. Neuro: Alert oriented x 3 normal cranial nerves, no focal deficits - Assessment and Plan (1) Abdominal pain Current Visit: Yes Status: Acute Assessment and Plan: With ascites and peritoneal carcinomatosis. Plan for paracentesis and possible CT-guided needle biopsy today. IR consulted. Continue supportive care. Pain control. (2) Peritoneal carcinomatosis Current Visit: Yes Status: Suspected Assessment and Plan: Awaiting paracentesis and possible needle biopsy. (3) UTI (urinary tract infection) Current Visit: Yes Status: Acute Assessment and Plan: Continue ceftriaxone. Urine culture in progress. (4) Anemia Current Visit: Yes Status: Acute Assessment and Plan: Patient remains anemic. Hemoglobin 7.1. Will check iron, folic acid and B12 levels. Stool was positive for occult blood. Will consult GI. (5) CAD (coronary artery disease) Current Visit: Yes Status: Chronic Assessment and Plan: Continue statin and beta tina. Holding aspirin for procedure. (6) CKD (chronic kidney disease) stage 3, GFR 30-59 ml/min Current Visit: Yes Status: Chronic Assessment and Plan: Creatinine improved. 1.07 today. (7) Diabetes mellitus Current Visit: Yes Status: Chronic (8) Essential hypertension Current Visit: Yes Status: Chronic Assessment and Plan: Blood pressure remains controlled. Continue current medications. (9) Cirrhosis of liver Current Visit: Yes Status: Chronic Assessment and Plan: Based on CT scan findings patient has cirrhosis of the liver. Will treat supportively. Hepatitis viral screening negative. Done recently. DVT Prophylaxis: With SCDs alone due to possible GI bleed and anemia. - Time Spent with Patient Total time spent is greater than 50% in coordination of care (as documented) at patient's floor/unit and/or counseling patient: Internal Medicine: Result - Labs CBC & Chem 7: 03/01/18 05:21 03/01/18 05:21 Labs: Short CBC 02/28/18 03/01/18 Range/Units 11:22 05:21 WBC 12.4 H 7.9 (4.3-11.1) K/mcL Hgb 7.6 L 7.1 L (11.5-15.4) g/dL Hct 24.1 L 22.2 L (35.3-44.9) % Plt Count 564 H 497 H (140-400) K/mcL Neutrophils # 10.8 H 6.2 (1.6-8.9) K/mcL BMP 02/28/18 03/01/18 11:22 05:21 Sodium 129 L 136 Potassium 3.6 3.3 L Chloride 94 L 104 Carbon Dioxide 23 23 BUN 31 H 22 Creatinine 1.47 H 1.07 Glucose 176 H 108 H Calcium 9.1 8.6 Cardiac Enzymes 02/28/18 Range/Units 11:22 Troponin I 0.03 (< 0.04) ng/mL Liver Function 02/28/18 02/28/18 03/01/18 Range/Units 11:22 18:35 05:21 Total Bilirubin 0.5 0.4 (0.3-1.0) mg/dL AST 18 14 (13-39) Units/L ALT 10 7 (7-52) Units/L Alkaline Phosphatase 135 H 105 H (34-104) Units/L Albumin 2.9 L 2.7 L 2.4 L (3.5-5.7) g/dL Urine 02/28/18 Range/Units 13:29 Urine Color Yellow (Yellow) Urine Clarity Cloudy A (Clear) Urine pH 5.5 (5.0-8.0) pH Units Ur Specific [place] > 1.030 H (1.010-1.025) Urine Protein 30 H (Neg-Trace) mg/dL Urine Glucose (UA) Normal (Normal) mg/dL - ABG Interpretation ABG results: PT/INR, D-dimer PT 15.9 Seconds (9.4-12.1) H 02/28/18 13:19 - Impressions Impressions Abdomen/Pelvis CT 02/28/18 11:08 IMPRESSION: Extensive peritoneal carcinomatosis and small volume ascites. No definite primary noted. Consider diagnostic paracentesis for cytology. Cirrhotic morphology of the liver. Cholelithiasis. D/ / Pete Vigil MD / Pete Vigil MD Interpreting Provider: Pete Vigil MD Chest X-Ray 02/28/18 11:09 IMPRESSION: Bibasilar atelectasis. D/ / Dallas Llanes MD / Dallas Llanes MD Interpreting Provider: Dallas Llanes MD Consult Discharge Plan - Plan Referrals: Grupo Purcell DO [Primary Care Provider] - (1) Abdominal pain Qualifiers: Abdominal location: generalized Qualified Code(s): R10.84 - Generalized abdominal pain (3) UTI (urinary tract infection) Qualifiers: Urinary tract infection type: acute cystitis Hematuria presence: without hematuria Qualified Code(s): N30.00 - Acute cystitis without hematuria (4) Anemia Qualifiers: Anemia type: unspecified type Qualified Code(s): D64.9 - Anemia, unspecified (5) CAD (coronary artery disease) Qualifiers: Coronary Disease-Associated Artery/Lesion type: [place] artery [place] vs. transplanted heart: [place] heart Associated angina: without angina Qualified Code(s): I25.10 - Atherosclerotic heart disease of [place] coronary artery wit hout angina pectoris (7) Diabetes mellitus Qualifiers: Diabetes mellitus type: type 2 Diabetes mellitus complication status: with kidney complications Diabetes mellitus complication detail: with chronic kidney disease Chronic kidney disease stage: stage 3 (moderate) Qualified Code(s): E11.22 - Type 2 diabetes mellitus with diabetic chronic kidney disease; N18.3 - Chronic kidney disease, stage 3 (moderate) (9) Cirrhosis of liver Qualifiers: Hepatic cirrhosis type: unspecified hepatic cirrhosis Ascites presence: with ascites Qualified Code(s): K74.60 - Unspecified cirrhosis of liver; R18.8 - Other ascites
[2018-03-01] MEDS: OXYCODONE Oral CONC 10 MG/0.5 ML ORAL.SYG SL PRN (12:29)
--- NOTE | 2018-03-01 14:34 | Procedure Note ---
Date of procedure: 03/01/18 Pre-op diagnosis: abdominal ascities Post-op diagnosis: same Procedure: Paracentesis Date: 03/01/2018 Time: 13:30 Indication: abdominal ascities Resident: Duncan Wynn Attending: Dr. Ronaldo Shaw A time-out was completed verifying correct patient, procedure, site, positioning, and special equipment if applicable. The patients right side abdominal wall was prepped and draped in a sterile manner after the appropriate infiltration level was confirmed by ultrasound. 1% lidocaine was used anesthetize the surrounding skin. A finder needle was then used to locate fluid and clear yellow fluid was obtained. A 10-blade scalpel used to make the incisio n. The paracentesis catheter was then threaded without difficulty. The patient had 2L of yellow fluid removed. Dr. Ronaldo Shaw was present for the entire procedure. A post-procedure the fluid will be sent for several studies. Estimated Blood Loss: 0 ml The patient tolerated the procedure well and there were no complications. Anesthesia: local Surgeon: Duncan Wynn Was there an records management assistant present: Yes Engraving Operator: Ronaldo Shaw Estimated blood loss (cc): 0 Specimen: ascities fluid Pathology: other Condition: stable Disposition: floor
[2018-03-01 15:05] LABS: Hematocrit 27.3 % (35.3-44.9)
[2018-03-01 15:11] LABS: Hemoglobin 8.9 g/dL (11.5-15.4)
--- NOTE | 2018-03-01 15:18 | IR Procedure Note ---
Date of procedure: 03/01/18 Consent Obtained: Written consent Timeout: Correct patient and procedure verified, Correct site verified, Time out performed, Skin prep completed Local anesthetic: Lidocaine 1% Indications: Omental caking Procedure Performed: Omental biopsy Was there an podiatry assistant present: No Site/Technique: Mid anterior abdomen Results/Findings: 20g biopsies of omental nodularity, 8 cores obtained. Estimated blood loss (cc): 2 Complications: None; Tolerated procedure well Post Procedure Treatment Plan: Monitoring in pts room Specimen: to path
[2018-03-01] MEDS: Multivit/Ca/Min/Fe/FA 1 TAB TABLET PO SCH (15:56)
[2018-03-01] MEDS ORDERED: SODIUM CHLORIDE/NAHCO3/KCL/PEG 4,000 ML SOLN.RECON PO ONE (17:00)
--- NOTE | 2018-03-01 17:57 | Gastroenterology Consult Note ---
<BauerDallas Hairston - Last Filed: 03/01/18 17:55> Date of Encounter: 03/01/18 Time of Encounter: 12:05 - Assessment and plan (1) Anemia Current Visit: Yes Status: Acute Assessment and plan: Hgb on admission was 7.6 and today Hgb 8.9. Continue to monitor CBC and transfuse PRBC as needed. Plan for EGD and colonoscopy tomorrow. Clear liquid diet today, no red or purple. NPO at midnight. If unable tolerate NuLytely please use MiraLAX prep. If not clear by 6 AM, give 2 tap water enemas. Qualifiers: Anemia type: unspecified type Qualified Code(s): D64.9 - Anemia, uns pecified (2) Cirrhosis of liver Current Visit: Yes Status: Chronic Assessment and plan: She saw Dr. Meraz on 02/25 and started workup for cirrhosis. Hepatitis profile was negative. ROXY, ANCA, AMA were negative. Plan for EGD tomorrow. On admission MELD-Na 21 and Child-Cruz class B. Check AFP. Lifestyle Changes: 1. Total abstinence from alcohol including social drinking. 2. No smoking. 3. Gradual loss of weight. 4. Drink at least 3 cups of coffee due to its antioxidant effects in the liver, it reduces risk of HCC and advance fibrosis. 5. If needed, use less than 2 g/day of Tylenol (in divided doses). 6. Vaccination for Hep A, B, Pneumococcus if not already received and yearly influenza vaccination by PCP. 7. Avoid NSAIDS as can cause kidney damage. 8. Avoid benzodiazepines and other sedatives such as anti-histamines, narcotics etc. as can cause encephalopathy or confusion. 9. Take a late carbohydrate meal supplement as it reduces glucose production from protein breakdown and thus improves nutrition. 10. In cirrhosis, statins are safe to use and also improve portal hypertension and decrease risk of HCC. 11. Screening: o Hepatocellular cancer screening: US of liver and AFP every 6 months Qualifiers: Hepatic cirrhosis type: unspecified hepatic cirrhosis Ascites presence: with ascites Qualified Code(s): K74.60 - Unspecified cirrhosis of liver; R18.8 - Other ascites (3) Abdominal pain Current Visit: Yes Status: Acute Qualifiers: Abdominal location: generalized Qualified Code(s): R10.84 - Generalized abdominal pain (4) Peritoneal carcinomatosis Current Visit: Yes Status: Suspected - Time Spent With Patient Total time spent is greater than 50% in coordination of care (as documented) at patient's floor/unit and/or counseling patient: GI History of Present Illness - Data of Consult Patient: known to practice within the last 3 years Consult date: 03/01/18 Requesting Physician: Tamy Atkins - Consult Narrative Reason for consult: Abdominal pain, anemia History of present illness: Ms. Cunningham is a 77 year old female with PMHx of CAD, DM, HLD, and HTN who presented to the ED with complaints of worsening abdominal pain, abdominal distention that has been ongoing for the past month. CT A/P 02/24/2018 showed mild cirrhosis, cholelithiasis, no evidence for acute cholecystitis. Nodularity is seen to the anterior mesentery with a 2.2 cm nodular mass noted within the mesentery. There are multiple smaller, nodular, mesenteric masses seen to be present. 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 She is taking iron supplement and her stool is black in color. She denies tarry stools or hematochezia. She is having a BM olesya ry other day. Hgb on admission was 7.6 and today Hgb 8.9. CT A/P 02/28/2018 shows extensive peritoneal carcinomatosis and small volume ascites. Procedures: Colonoscopy 4-5 years ago at [facility], normal per patient report. NSAIDs: ASA Anticoagulation: None Past Med Surg Social Fam HX - Past Medical History Medical history: coronary artery disease, diabetes, hyperlipidemia, hypertension Additional medical history: DIABETIC NEUROPATHY Psychiatric history: no psych history - Past Surgical History Surgical History: coronary bypass (CABG) - Social History Smoking Status: Never smoker Smokeless Tobacco Status: No Alcohol use: none Drug use: none - Family History Father Hx Family Cardiac Disorders: No Hx Family Respiratory Disorders: No Hx Family Cancer: Yes (mouth) Hx Family GI Disorders: No Hx Family Genitourinary Disorders: No Hx Family Endocrine Disorder: No Hx Family Musculoskeletal Disorders: No Hx Family Neuromuscular Disorders: No Hx Family Neurologic Disorders: No Hx Family HEENT Disorders: No Hx Family Autoimmune Disorders: No Hx Family Reproductive Disorders: No Hx Family Psychosocial Disorders: No Mother Living Status: Hx Family Cardiac Disorders: Yes (HTN) Hx Family Respiratory Disorders: No Hx Family Cancer: No Hx Family GI Disorders: No Hx Family Genitourinary Disorders: No Hx Family Endocrine Disorder: Yes Hx Family Musculoskeletal Disorders: No Hx Family Neuromuscular Disorders: No Hx Family Neurologic Disorders: No Hx Family HEENT Disorders: No Hx Family Autoimmune Disorders: No Hx Family Reproductive Disorders: No Hx Family Psychosocial Disorders: No - Gastrointestinal Gastrointestinal: Present: as per HPI - Constitutional Constitutional: as per HPI - EENT Eyes: as per HPI Ears: Present: as per HPI Nose, mouth and throat: Present: as per HPI - Cardiovascular Cardiovascular ROS: Present: as per HPI - Respiratory Respiratory IM: Present: as per HPI - Genitourinary Genitourinary: Absent: change in color, Urinary frequency - Neurological ROS Neurological GI: Present: as per HPI - Hematologic/Lymphatic Hematologic/Lymphatic pediatric: Present: as per HPI - Musculoskeletal Musculoskeletal ROS GI: Present: as per HPI - Integumentary Integumentary GI: Present: as per HPI - Psychiatric ROS Psychiatric GI: Present: as per HPI - Endocrine Endocrine IM: Present: as per HPI - Constitutional Vitals: Temp Pulse Resp BP Pulse Ox 98.4 F 84 16 144/69 90 03/01/18 12:28 03/01/18 12:28 03/01/18 12:28 03/01/18 12:28 03/01/18 12:28 General appearance: Present: cooperative, A&O X 3, no acute distress, answers questions appropriately - Head Head exam: Present: atraumatic, normocephalic - Eye Eye exam: Present: normal appearance, sclera anicteric - ENT ENT exam: Present: mucous membranes dry - Neck Neck exam general surgery: Present: normal inspection, trachea midline - Respiratory Respiratory exam: Present: CTAB - Cardiovascular Cardiovascular exam: Present: RRR, +S1, +S2 - GI/Abdominal GI/Abdominal exam: Present: distended, soft, tenderness (lower abdomen), no peritoneal signs. Absent: firm, guarding - Rectal Rectal exam: Present: deferred - Extremities Exam Extremities exam: Present: warm - Neurological Exam Neurological exam: Present: no focal deficits - Psychiatric Psychiatric exam: Present: normal affect, normal mood - Skin Skin exam: Present: dry, intact, normal color, warm Results - Labs CBC & Chem 7: 03/01/18 13:30 03/01/18 05:21 Labs: Last Result Calcium 8.6 mg/dL (8.6-10.3) 03/01/18 05:21 Troponin I 0.03 ng/mL (< 0.04) 02/28/18 11:22 Entire Visit Hgb 8.9 g/dL (11.5-15.4) L D 03/01/18 13:30 Hct 27.3 % (35.3-44.9) L 03/01/18 13:30 PT 15.9 Seconds (9.4-12.1) H 02/28/18 13:19 Total Bilirubin 0.4 mg/dL (0.3-1.0) 03/01/18 05:21 AST 14 Units/L (13-39) 03/01/18 05:21 ALT 7 Units/L (7-52) 03/01/18 05:21 Ammonia < 10 mcmol/L (16-53) L 02/28/18 13:19 - ABG ABG results: PT/INR, D-dimer PT 15.9 Seconds (9.4-12.1) H 02/28/18 13:19 - Impressions Impressions Paracentesis Ultrasound 03/01/18 06:45 IMPRESSION: Successful ultrasound guided paracentesis. D/ / Ronaldo Shaw MD / Ronaldo Shaw MD Interpreting Provider: Ronaldo Shaw MD Abdomen Biopsy CT 03/01/18 08:09 IMPRESSION: Successful CT-guided omental mass biopsy as described above. D/ / Ronaldo Shaw MD / Ronaldo Shaw MD Interpreting Provider: Ronaldo Shaw MD Consult Discharge Plan - Plan Referrals: Grupo Purcell DO [Primary Care Provider] - <Duke Hunt - Last Filed: 03/05/18 10:14> - Time Spent With Patient Total time spent is greater than 50% in coordination of care (as documented) at patient's floor/unit and/or counseling patient: GI History of Present Illness - Data of Consult Requesting Physician: Miquel Lara - Consult Narrative History of present illness: Ms. Cunningham is a 77 year old female - Constitutional Vitals: Temp Pulse Resp BP Pulse Ox 97.9 F 79 14 125/62 90 03/05/18 08:00 03/05/18 09:00 03/05/18 09:00 03/05/18 09:00 03/05/18 09:00 Results - Labs CBC & Chem 7: 03/05/18 03:27 03/05/18 03:27 Labs: Last Result Calcium 8.4 mg/dL (8.6-10.3) L 03/05/18 03:27 Iron < 10 mcg/dL (50-170) L 03/02/18 06:04 % Saturation TNP 03/02/18 06:04 Transferrin 109 mg/dL (203-362) L 03/02/18 06:04 Ferritin 802 ng/mL (10-120) H 03/02/18 06:04 Troponin I 2.08 ng/mL (< 0.04) H* 03/03/18 01:15 Vitamin B12 > 1500 pg/mL (250-1100) H 03/02/18 06:04 Folate 10.0 ng/mL (3.0-16.0) 03/02/18 06:04 Peritoneal Appearance CLOUDY (Clear) 02/28/18 15:59 Peritoneal Volume 53.0 mL 02/28/18 15:59 Peritoneal RBC 0.002 M/mcL (0.000-0.002) 02/28/18 15:59 Periton Tot Nuc Cells 6653 TNC/mcL (0-300) H 02/28/18 15:59 Periton Band Neuts Test Not Performed 02/28/18 15:59 Periton Lymphocytes % 8.0 % 02/28/18 15:59 Periton Monocytes % 2.0 % 02/28/18 15:59 Periton Other Cells % Test Not Performed 02/28/18 15:59 Peritoneal Tot Protein 4.3 g/dL (No Ref Range) 02/28/18 15:59 Peritoneal LDH 128 Units/L (No Ref Range) 02/28/18 15:59 Peritoneal Glucose 113 mg/dL (No Ref Range) 02/28/18 15:59 Peritoneal Amylase < 10 Units/L (No Ref Range) 02/28/18 15:59 Entire Visit Hgb 8.4 g/dL (11.5-15.4) L 03/05/18 03:27 Hct 26.7 % (35.3-44.9) L 03/05/18 03:27 PT 15.9 Seconds (9.4-12.1) H 02/28/18 13:19 Ferritin 802 ng/mL (10-120) H 03/02/18 06:04 Total Bilirubin 0.7 mg/dL (0.3-1.0) 03/05/18 03:27 AST 29 Units/L (13-39) 03/05/18 03:27 ALT 15 Units/L (7-52) 03/05/18 03:27 Ammonia < 10 mcmol/L (16-53) L 02/28/18 13:19 Folate 10.0 ng/mL (3.0-16.0) 03/02/18 06:04 - ABG ABG results: ABG ABG pH 7.43 pH Units (7.32-7.45) 03/03/18 04:45 ABG pCO2 28 mmHg (35-45) L 03/03/18 04:45 ABG pO2 148 mmHg (85-104) H 03/03/18 04:45 ABG O2 Saturation 99 % (95-98) H 03/03/18 04:45 PT/INR, D-dimer PT 15.9 Seconds (9.4-12.1) H 02/28/18 13:19 - Attending Attestation Patient with peritoneal carcinomatosis most likely. Omental biopsy pending. Cancel endoscopy for tomorrow since she is having cystoscopy and plan the next day. I examined this patient and my medical decision-making was reviewed with the Re sident Physician. I agree with the documented findings, disposition and treatment plan as described except to the extent set forth below.
[2018-03-01 18:15] LABS: RBC,Peritoneal Fluid 0.002 M/mcL
[2018-03-01 18:36] LABS: Amylase,Peritoneal Fluid < 10 Units/L (No Ref Range); Glucose,Peritoneal Fluid 113 mg/dL (No Ref Range); LDH,Peritoneal Fluid 128 Units/L (No Ref Range); Total Protein,Peritoneal Fluid 4.3 g/dL (No Ref Range)
--- NOTE | 2018-03-01 18:47 | Urology - Consult Note ---
Date of Encounter: 03/01/18 Time of Encounter: 18:44 - Assessment and Plan (1) Ureteral calculus, right Current Visit: Yes Status: Acute Assessment and plan: Right ureteral calculus is without hydronephrosis at this time, but is large at 8 mm. Additionally the patient has an active UTI by urinalysis. Discussed complications of obstruction in setting of active infection. Discussed option for management. Plan: Placement of long dwelling right ureteral double-J stent in OR tomorrow under anesthesia. Potential outpatient definitive stone address at later date depending on health status regarding recent diagnosis of carci nomatosis (2) UTI (urinary tract infection) Current Visit: Yes Status: Acute Assessment and plan: Positive urinalysis for infection. Patient nontoxic at this time. She has a large distal ureteral calculus. Fortunately there is no obstruction at the present time. Discussed potential complications of obstruction in the setting of active infection. Plan: Adjust antibiotic therapy based on culture result. Removed potential for obstruction via address of stone. Qualifiers: Urinary tract infection type: acute cystitis Hematuria presence: without hematuria Qualified Code(s): N30.00 - Acute cystitis without hematuria Urology CN:HPI Consult date: 03/01/18 Reason for consult Urology: Other (Right distal ureteral calculus in setting of UTI) Requesting physician: Tamy Atkins History of present illness: Ms. Cunningham is a 77 year old female patient with a history of liver cirrhosis who presented to the ER with complaints of worsening abdominal pain, and abdominal distention that has been going on for at least a month. She had been seen at urgent care in [place] and was scheduled for biopsy for abnormal lesions noted on the CT scan there to be done later this week. She however continued to have significant abdominal pain so she came to the ER. She denies any hematemesis or melena. She does take iron and so her stools are always melanotic. She has not noted any weight loss but has been anorexic. Presently she feels somewhat better but continues to have nausea and generalized abdominal pain mainly in the epigastric and lower abdominal region. She also reports recent episode of chest pain. She has a history of coronary artery disease with CABG. She does take aspirin which was held in anticipation for biopsy planned for later this week. As part of her workup CT incidentally found a distal right ureteral calculus of 8 mm in diameter. Her urine is grossly positive for infection via UA. She is nontoxic at this time. Discussed findings at bedside with patient and son. Discussed benefit of urinary diversion by stenting in this setting to prevent rapid deterioration should the stone migrated slightly and she become obstructed in the setting of infection. All questions answered. Patient consents to proceed with stenting tomorrow as she is currently taking liquids Past Med Surg Social Fam HX - Past Medical History Medical history: coronary artery disease, diabetes, hyperlipidemia, hypertension Additional medical history: DIABETIC NEUROPATHY Psychiatric history: no psych history - Past Surgical History Surgical History: coronary bypass (CABG) - Social History Smoking Status: Never smoker Smokeless Tobacco Status: No Alcohol use: none Drug use: none - Family History Mother Living Status: Hx Family Cardiac Disorders: Yes (HTN) Hx Family Respiratory Disorders: No Hx Family Cancer: No Hx Family GI Disorders: No Hx Family Genitourinary Disorders: No Hx Family Endocrine Disorder: Yes Hx Family Musculoskeletal Disorders: No Hx Family Neuromuscular Disorders: No Hx Family Neurologic Disorders: No Hx Family HEENT Disorders: No Hx Family Autoimmune Disorders: No Hx Family Reproductive Disorders: No Hx Family Psychosocial Disorders: No Father Hx Family Cardiac Disorders: No Hx Family Respiratory Disorders: No Hx Family Cancer: Yes (mouth) Hx Family GI Disorders: No Hx Family Genitourinary Disorders: No Hx Family Endocrine Disorder: No Hx Family Musculoskeletal Disorders: No Hx Family Neuromuscular Disorders: No Hx Family Neurologic Disorders: No Hx Family HEENT Disorders: No Hx Family Autoimmune Disorders: No Hx Family Reproductive Disorders: No Hx Family Psychosocial Disorders: No Medications and Allergies Acetaminophen [Tylenol Arthritis] 650 mg PO TID PRN 02/28/18 [History] Aspirin [Adult Aspirin] 81 mg PO DAILY 02/28/18 [History] Atorvastatin [Lipitor] 40 mg PO HS 02/28/18 [History] Cyanocobalamin (Vitamin B-12) [Vitamin B-12] 1,000 mcg PO DAILY 02/28/18 [History] Ferrous Sulfate [Iron] 325 mg PO DAILY 02/28/18 [History] GlipiZIDE [Glipizide ER] 10 mg PO DAILY 02/28/18 [History] Metoprolol Succinate [Toprol Xl] 50 mg PO DAILY 02/28/18 [History] Omeprazole [PriLOSEC] 20 mg PO DAILY 02/28/18 [History] Ondansetron HCl [Zofran] 8 mg PO Q8H PRN 02/28/18 [History] Pioglitazone HCl [Actos] 45 mg PO DAILY 02/28/18 [History] Potassium 99 mg PO DAILY 02/28/18 [History] Pramipexole Di-HCl [Pramipexole Dihydrochloride] 0.125 mg PO DAILY 02/28/18 [History] traZODone [TraZODone] 50 mg PO HS 02/28/18 [History] Allergy/AdvReac Type Severity Reaction Status Date / Time No Known Allergies Allergy Verified 09/02/15 12:42 Review of Systems - Constitutional no chills, no fever(s) - EENT Nose, mouth and throat: no dry mouth, no sore throat - Cardiovascular no chest pain, no diaphoresis - Respiratory no cough, no dyspnea - Gastrointestinal no fecal incontinence - Genitourinary Genitourinary: no dysuria, no flank pain - Musculoskeletal no back pain - Integumentary no lesions, no rash - Neurological no sensory deficit, no syncope - Psychiatric no anxiety - Hematologic/Lymphatic no easy bleeding - Allergic/Immunologic no throat swelling, no wheezing Exam Initial Vital Signs Temp Pulse Resp BP Pulse Ox 98.4 F 88 18 124/77 95 02/28/18 10:58 02/28/18 10:58 02/28/18 10:58 02/28/18 10:58 02/28/18 10:58 - General physical appearance Present: well developed, well nourished - Eyes Present: normal ocular movement - ENT Present: normal nares, no congestion - Neck Present: trachea midline - Respiratory Present: normal respiratory effort - Cardiovascular Cardiovascular exam IM: RRR - Abdomen Abdomen: Absent: non tender, distended - Integumentary Present: no rash, no abnormal pigmentation - Neurologic Absent: disoriented - Musculoskeletal Present: normal gait Urology Results - Labs 03/01/18 13:30 03/01/18 05:21 Abnormal lab results RBC 2.59 M/mcL (3.82-4.97) L 03/01/18 05:21 Hgb 8.9 g/dL (11.5-15.4) L D 03/01/18 13:30 Hct 27.3 % (35.3-44.9) L 03/01/18 13:30 MCH 27.4 pg (28.0-33.3) L 03/01/18 05:21 RDW 14.9 % (11.5-14.5) H 03/01/18 05:21 Plt Count 497 K/mcL (140-400) H 03/01/18 05:21 PT 15.9 Seconds (9.4-12.1) H 02/28/18 13:19 Potassium 3.3 mEq/L (3.5-5.1) L 03/01/18 05:21 Est GFR (Non-Af Amer) 50 (> 60) L 03/01/18 05:21 Glucose 108 mg/dL (70-105) H 03/01/18 05:21 POC Glucose 126 mg/dL (70-99) H 03/01/18 11:47 Alkaline Phosphatase 105 Units/L (34-104) H 03/01/18 05:21 Ammonia < 10 mcmol/L (16-53) L 02/28/18 13:19 Lactate Dehydrogenase 113 Units/L (140-271) L 03/01/18 05:21 B-Natriuretic Peptide 145 pg/mL (Less than 100) H 02/28/18 13:19 Serum Total Protein 6.2 g/dL (6.4-8.9) L 03/01/18 05:21 Albumin 2.4 g/dL (3.5-5.7) L 03/01/18 05:21 Globulin 3.8 g/dL (2.4-3.5) H 03/01/18 05:21 Albumin/Globulin Ratio 0.6 (1.1-2.2) L 03/01/18 05:21 Urine Clarity Cloudy (Clear) A 02/28/18 13:29 Ur Specific [place] > 1.030 (1.010-1.025) H 02/28/18 13:29 Urine Protein 30 mg/dL (Neg-Trace) H 02/28/18 13:29 Urine Ketones Trace mg/dL (Negative) H 02/28/18 13:29 Urine Nitrite Positive (Negative) A 02/28/18 13:29 Ur Leukocyte Esterase Moderate (Negative) H 02/28/18 13:29 Urine Microscopic WBC 5-15 per hpf (0-3) H 02/28/18 13:29 Urine Bacteria Many per hpf (None-Few) H 02/28/18 13:29 Ur Culture Indicated? YES (NO) A 02/28/18 13:29 Periton Tot Nuc Cells 6653 TNC/mcL (0-300) H 02/28/18 15:59 Stool Occult Bld Scrn Positive (Negative) A 02/28/18 13:36 Diabetes panel 02/28/18 03/01/18 Range/Units 18:35 05:21 Sodium 136 (136-145) mEq/L Potassium 3.3 L (3.5-5.1) mEq/L Chloride 104 (98-107) mEq/L Carbon Dioxide 23 (23-29) mEq/L BUN 22 (8-23) mg/dL Creatinine 1.07 (0.60-1.20) mg/dL Glucose 108 H (70-105) mg/dL Calcium 8.6 (8.6-10.3) mg/dL AST 14 (13-39) Units/L ALT 7 (7-52) Units/L Alkaline Phosphatase 105 H (34-104) Units/L Albumin 2.7 L 2.4 L (3.5-5.7) g/dL Calcium panel 02/28/18 03/01/18 Range/Units 18:35 05:21 Calcium 8.6 (8.6-10.3) mg/dL Albumin 2.7 L 2.4 L (3.5-5.7) g/dL Pituitary panel 03/01/18 Range/Units 05:21 Sodium 136 (136-145) mEq/L Potassium 3.3 L (3.5-5.1) mEq/L Chloride 104 (98-107) mEq/L Carbon Dioxide 23 (23-29) mEq/L BUN 22 (8-23) mg/dL Creatinine 1.07 (0.60-1.20) mg/dL Glucose 108 H (70-105) mg/dL Calcium 8.6 (8.6-10.3) mg/dL Adrenal panel 02/28/18 03/01/18 Range/Units 18:35 05:21 Sodium 136 (136-145) mEq/L Potassium 3.3 L (3.5-5.1) mEq/L Chloride 104 (98-107) mEq/L Carbon Dioxide 23 (23-29) mEq/L BUN 22 (8-23) mg/dL Creatinine 1.07 (0.60-1.20) mg/dL Glucose 108 H (70-105) mg/dL Calcium 8.6 (8.6-10.3) mg/dL Total Bilirubin 0.4 (0.3-1.0) mg/dL AST 14 (13-39) Units/L ALT 7 (7-52) Units/L Alkaline Phosphatase 105 H (34-104) Units/L Albumin 2.7 L 2.4 L (3.5-5.7) g/dL All other labs normal. - Imaging CT scan - abdomen: image reviewed CT scan - pelvis: image reviewed (CT abdomen and pelvis images reviewed and interpreted independently) Consult Discharge Plan - Plan Referrals: Grupo Purcell DO [Primary Care Provider] -
[2018-03-01] MEDS: traZODone 50 MG TABLET PO SCH (20:02)
[2018-03-01 21:23] LABS: Appearance of Peritoneal Fl CLOUDY (Clear)
[2018-03-02] MEDS: 0.9 % Sodium Chloride 1,000 ML IVC SCH ×2 (05:20→19:49)
[2018-03-02 06:20] LABS: Basophils % 0.5 %; Eosinophils # 0.3 K/mcL (0.0-0.6); Eosinophils % 3.6 %; Hematocrit 23.4 % (35.3-44.9); Hemoglobin 7.5 g/dL (11.5-15.4); Immature Granulocytes % 0.8 % (0-4); Lymphocytes # 0.8 K/mcL (0.6-4.6); Lymphocytes % 10.7 %; Mean Corpuscular HGB Conc 32.1 g/dL (31.6-35.5); Mean Corpuscular Hemoglobin 27.5 pg (28.0-33.3); Mean Corpuscular Volume 85.7 fL (83.0-100.0); Mean Platelet Volume 9.4 fL (9.4-12.4); Monocytes # 0.8 K/mcL (0.0-1.3); Monocytes % 11.1 %; Neutrophils # 5.3 K/mcL (1.6-8.9); Platelet Count 486 K/mcL (140-400); Red Blood Count 2.73 M/mcL (3.82-4.97); Red Cell Distribution Width 15.3 % (11.5-14.5); Segmented Neutrophils % 73.3 %
[2018-03-02 06:58] LABS: BUN/Creatinine Ratio 16 (6-26); Blood Urea Nitrogen 13 mg/dL (8-23); Calcium 8.5 mg/dL (8.6-10.3); Carbon Dioxide 23 mEq/L (23-29); Chloride 103 mEq/L (98-107); Glucose 146 mg/dL (70-105); Osmolality,Calculated 281 (280-300); Potassium 3.1 mEq/L (3.5-5.1); Sodium 134 mEq/L (136-145); eGFR For Non-African Americans > 60 (> 60)
[2018-03-02 07:05] LABS: Iron < 10 mcg/dL (50-170); Transferrin 109 mg/dL (203-362)
[2018-03-02 07:18] LABS: Ferritin 802 ng/mL (10-120)
[2018-03-02 07:21] LABS: Vitamin B12 > 1500 pg/mL (250-1100)
[2018-03-02] MEDS: Cyanocobalamin (B-12) 1,000 MCG TABLET PO SCH (08:07)
[2018-03-02] MEDS: Multivit/Ca/Min/Fe/FA 1 TAB TABLET PO SCH (08:07)
[2018-03-02] MEDS: Metoprolol XL (24 HR) Succ 50 MG TAB.ER.24H PO SCH (08:18)
[2018-03-02] MEDS ORDERED: cefTRIAXone 1,000 MG in Water for inj. (sterile) 20 ML 10 ML IVP SCH (09:00)
[2018-03-02] MEDS: cefTRIAXone 1,000 MG in 0.9 % Sodium Chloride Mini Bag 100 ML IVPB SCH (10:03)
[2018-03-02] MEDS ORDERED: *HR* FentaNYL (PF) 100 MCG/2 ML VIAL ONE (11:09)
[2018-03-02] MEDS ORDERED: *HR* Propofol 200 MG/20 ML VIAL IVP ONE (11:10)
[2018-03-02] MEDS ORDERED: Lidocaine -MPF 2% 2 ML VIAL ONE (11:11)
[2018-03-02] MEDS ORDERED: Ondansetron 4 MG/2 ML VIAL ONE (11:11)
[2018-03-02] MEDS ORDERED: Dexamethasone 4 MG/ML VIAL ONE (11:11)
[2018-03-02] MEDS ORDERED: Isovue-300 30 ML VIAL ONE (11:40)
--- NOTE | 2018-03-02 11:54 | Anesthesia Evaluation PreOp ---
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: Denies Any Significant HX Other Medical History: Hepatic (liver cirrhosis, INR 1.4), Renal (ckd stage 3), Other (peritoneal carcinomatosis (unknown primary cancer)) Anesthesia History: No Prior Anesthetic Complications Alcohol Use: none Drug use: none Medications and Allergies Acetaminophen [Tylenol Arthritis] 650 mg PO TID PRN 02/28/18 [History] Aspirin [Adult Aspirin] 81 mg PO DAILY 02/28/18 [History] Atorvastatin [Lipitor] 40 mg PO HS 02/28/18 [History] Cyanocobalamin (Vitamin B-12) [Vitamin B-12] 1,000 mcg PO DAILY 02/28/18 [History] Ferrous Sulfate [Iron] 325 mg PO DAILY 02/28/18 [History] GlipiZIDE [Glipizide ER] 10 mg PO DAILY 02/28/18 [History] Metoprolol Succinate [Toprol Xl] 50 mg PO DAILY 02/28/18 [History] Omeprazole [PriLOSEC] 20 mg PO DAILY 02/28/18 [History] Ondansetron HCl [Zofran] 8 mg PO Q8H PRN 02/28/18 [History] Pioglitazone HCl [Actos] 45 mg PO DAILY 02/28/18 [History] Potassium 99 mg PO DAILY 02/28/18 [History] Pramipexole Di-HCl [Pramipexole Dihydrochloride] 0.125 mg PO DAILY 02/28/18 [History] traZODone [TraZODone] 50 mg PO HS 02/28/18 [History] Allergy/AdvReac Type Severity Reaction Status Date / Time No Known Allergies Allergy Verified 09/02/15 12:42 - Meds/Allergy Pre-op Review Medications Reviewed: Yes Allergies Reviewed: Yes Beta Blockers on Current Med List: Yes (8:18 am today) Anesthesia Results - Labs 03/02/18 06:04 03/02/18 06:04 - Imaging EKG: report reviewed, image reviewed (Sinus rhythm with sinus arrhythmia Leftward axis Nonspecific ST and T-wave changes) Additional studies: TTE: Impressions: LVEF 60%. Normal LV chamber size, wall thickness and function. Atypical septal motion c/w a postoperative septum. Mild left ventricular diastolic dysfunction. Normal right ventricular structure and function. No evidence of pulmonary hypertension. No significant valvular dysfunction. Anesthesia Exam Last Vital Signs Temp 97.9 F 03/02/18 10:00 Pulse 69 03/02/18 10:00 Resp 18 03/02/18 10:00 BP 130/69 03/02/18 10:00 Pulse Ox 95 03/02/18 10:00 Weight: 74kg NPO (# of Hours): > 8 hrs - HEENT Pupil (Motor): Pupils equal, EOMI Mallampati: III Teeth: Poor dentition Oral Opening: Greater than 3 - TELEGRAPHIC TYPEWRITER OPERATOR LOC: Oriented TELEGRAPHIC TYPEWRITER OPERATOR Motor: Normal RUE, Normal LUE, Normal RLE, Normal LLE, Normal Face - Cardiac Rhythm: Regular Murmur: None - Pulmonary Breath Sounds: bilateral Clear Respiratory Effort: Symmetrical Anesthesia Assess/Plan ASA Score: 4 Modified Jose Antonio Scale for Level of Consciousness: Cooperative, oriented, and tranquil Anesthetic Plan: General Monitoring Plan: Standard Monitors Recovery Plan: PACU
[2018-03-02] MEDS ORDERED: Lidocaine -MPF 4% 5 ML AMPUL ONE (11:58)
--- NOTE | 2018-03-02 12:00 | Internal Med Progress Note ---
Hospitalist Progress Note - Encounter Date of Encounter: 03/02/18 Time of Encounter: 12:00 - Exam Vitals: Temp Pulse Resp BP Pulse Ox 97.9 F 69 18 130/69 95 03/02/18 10:00 03/02/18 10:00 03/02/18 10:00 03/02/18 10:00 03/02/18 10:00 Exam: General: Patient is alert, no acute distress, oriented x 3 Respiratory: Good respiratory effort. Normal breath sounds. No wheezing or crackles. Cardiovascular: Regular rate and rhythm. s1 and s2 normal No clicks, rubs, gallops, or murmurs. No pedal edema Abdomen: Abdomen is soft, distended. Tender in the lower quadrants. Bowel sounds are present Musculoskeletal: Spontaneously moving all extremities Skin: warm, dry, intact. Neuro: Alert oriented x 3 normal cranial nerves, no focal deficits - Assessment and Plan (1) Acute respiratory failure requiring reintubation Current Visit: Yes Status: Acute Assessment and Plan: Acute respiratory failure with hypoxia requiring reintubation Pt went to OR today for ureteral stent placement. Was noted to being repsiratory distress following extubation Had an episode of SVT and received adenosine. Also went into nonsustained v tach per anesthesia(about 10 beats) and received 1 dose of amiodarone 150mg HAd to be reintubated for respiratory distress after being extubated post procedure. Unclear etiology for hypoxemia. She is being transferred to the ICU for further management and ICU service has been consulted (2) Ureteral calculus, right Current Visit: Yes Status: Acute Assessment and Plan: Urology following. s/p stent placement today (3) Peritoneal carcinomatosis Current Visit: Yes Status: Suspected Assessment and Plan: s/p paracentesis and omental biopsy. Oncology consult (4) Abdominal pain Current Visit: Yes Status: Acute Assessment and Plan: With ascites and peritoneal carcinomatosis. s/p paracentesis and omental biopsy. (5) UTI (urinary tract infection) Current Visit: Yes Status: Acute Assessment and Plan: Continue ceftriaxone. Urine culture in progress. (6) Diabetes mellitus Current Visit: Yes Status: Chronic Assessment and Plan: Monitor blood sugars. Will place patient on sliding scale insulin. (7) Anemia Current Visit: Yes Status: Acute Assessment and Plan: Patient remains anemic. Hemoglobin 7.1. Will check iron, folic acid and B12 levels. Stool was positive for occult blood. GI plan for EGD and colonoscopy (8) CAD (coronary artery disease) Current Visit: Yes Status: Chronic Assessment and Plan: Continue statin and beta tina. Holding aspirin for procedure. (9) CKD (chronic kidney disease) stage 3, GFR 30-59 ml/min Current Visit: Yes Status: Chronic Assessment and Plan: Creatinine improved. 1.07 today. (10) Essential hypertension Current Visit: Yes Status: Chronic Assessment and Plan: Blood pressure remains controlled. Continue current medications. (11) Cirrhosis of liver Current Visit: Yes Status: Chronic Assessment and Plan: Based on CT scan findings patient has cirrhosis of the liver. Will treat supportively. Hepatitis viral screening negative. Done recently. (12) Respiratory failure with hypoxia Current Visit: Yes Status: Acute Assessment and Plan: See #1 - Time Spent with Patient Total time spent is greater than 50% in coordination of care (as documented) at patient's floor/unit and/or counseling patient: Internal Medicine: Result - Labs CBC & Chem 7: 03/02/18 06:04 03/02/18 16:06 Labs: Short CBC 03/01/18 03/02/18 Range/Units 13:30 06:04 WBC 7.3 (4.3-11.1) K/mcL Hgb 8.9 L D 7.5 L (11.5-15.4) g/dL Hct 27.3 L 23.4 L (35.3-44.9) % Plt Count 486 H (140-400) K/mcL Neutrophils # 5.3 (1.6-8.9) K/mcL BMP 03/02/18 06:04 Sodium 134 L Potassium 3.1 L Chloride 103 Carbon Dioxide 23 BUN 13 Creatinine 0.83 Glucose 146 H Calcium 8.5 L - ABG Interpretation ABG results: PT/INR, D-dimer PT 15.9 Seconds (9.4-12.1) H 02/28/18 13:19 - Impressions Impressions Paracentesis Ultrasound 03/01/18 06:45 IMPRESSION: Successful ultrasound guided paracentesis. D/ / Ronaldo Shaw MD / Ronaldo Shaw MD Interpreting Provider: Ronaldo Shaw MD Abdomen Biopsy CT 03/01/18 08:09 IMPRESSION: Successful CT-guided omental mass biopsy as described above. 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 transplanted heart: [place] heart Associated angina: without angina Qualified Code(s): I25.10 - Atherosclerotic heart disease of [place] coronary artery without angina pectoris (11) Cirrhosis of liver Qualifiers: Hepatic cirrhosis type: unspecified hepatic cirrhosis Ascites presence: with ascites Qualified Code(s): K74.60 - Unspecified cirrhosis of liver; R18.8 - Other ascites (12) Respiratory failure with hypoxia Qualifiers: Chronicity: acute Qualified Code(s): J96.01 - Acute respiratory failure with hypoxia
[2018-03-02] MEDS ORDERED: *HR* OxyCODONE Immed Rel 5 MG TABLET PO PRN ×2 (12:23→13:41)
--- NOTE | 2018-03-02 12:29 | Operative Note ---
Date of procedure: 03/02/18 Pre-op diagnosis: Right ureteral calculus Post-op diagnosis: same Procedure: Cystoscopy, right retrograde ureteral pyelography, right double-J stent placement, intraoperative interpretation of radiographic images by surgeon Implants: 6 x 24 right ureteral double-J stent Complications: None Anesthesia: GETA Surgeon: Dinh Tiwari Was there an healthcare administrative assistant present: No Estimated blood loss (cc): 0 Specimen: none Condition: stable Disposition: PACU Procedure in Detail: The patient was brought to the operating theater placed on the table in supine position. Patient identified by name date of and administered a general anesthetic. At this point patient's position in lithotomy prepped and draped in normal sterile fashion. Scope was inserted urethral meatus and advanced with the bladder under direct visualization. There were no mucosal abnormalities of the urethra or bladder. The right orifice was cannulated with an open-ended catheter. Using gentle injection of contrast a right retrograde ureteropyelogram was performed. Intraoperative interpretation of this pyelogram revealed a filling defect in the distal ureter consistent with the 8 mm stone noted on CT. Proximal to the stone obstruction of the collecting system was appreciated with moderate hydroureteronephrosis. Through the existing open- ended catheter a Glidewire was advanced into the right renal pelvis. All his meds were removed except the Glidewire. Over the existing Glidewire and under fluoroscopic guidance a 6 x 24 double-J stent was advanced. Was a simple slip in good position the Glidewire was removed. Possible distal ends of the stent was confirmed in good position using fluoroscopy. This ended the procedure. All intraoperative radiograph images were interpreted by surgeon in real time to facilitate procedure. There were no, patient. There was no blood loss.
[2018-03-02] MEDS ORDERED: Potassium Chloride Elixir 20 MEQ/15 ML UDC PO SCH ×2 (12:30→16:30)
[2018-03-02] MEDS ORDERED: *HR* Adenosine 6 MG/2 ML VIAL IVP ONE (12:33)
[2018-03-02] MEDS ORDERED: *HR* Rocuronium Bromide 50 MG/5 ML VIAL ONE (12:49)
[2018-03-02] MEDS ORDERED: *HR* Midazolam HCl 2 MG/2 ML VIAL ONE (13:04)
[2018-03-02] MEDS ORDERED: *HR* Etomidate 40 MG/20 ML VIAL IVP ONE (13:38)
[2018-03-02] MEDS ORDERED: 0.9 % Sodium Chloride 1,000 ML IVC SCH (13:41)
[2018-03-02] MEDS ORDERED: *HR* Promethazine 25 MG/ML VIAL IVP PRN (13:41)
[2018-03-02] MEDS ORDERED: Naloxone 0.4 MG/ML INJ IVP PRN (13:41)
[2018-03-02] MEDS ORDERED: Furosemide 40 MG/4 ML VIAL IVP ONE (14:13)
[2018-03-02] MEDS ORDERED: Potassium Chloride 40 MEQ, Lidocaine 1% 2 ML in D5% in Water 500 ML IVPB ONE (14:29)
[2018-03-02] MEDS ORDERED: Dexmedetomidine HCl 400 MCG/100 ML MLS IVC SCH (14:45)
[2018-03-02] MEDS ORDERED: Artificial Tears SOLN 15 ML BOTTLE BOTH EYES PRN (14:46)
--- NOTE | 2018-03-02 14:57 | Pulmonology Consult Note ---
<MarinokaylacameliaSergei S - Last Filed: 03/02/18 16:16> Medications and Allergies Acetaminophen [Tylenol Arthritis] 650 mg PO TID PRN 02/28/18 [History] Aspirin [Adult Aspirin] 81 mg PO DAILY 02/28/18 [History] Atorvastatin [Lipitor] 40 mg PO HS 02/28/18 [History] Cyanocobalamin (Vitamin B-12) [Vitamin B-12] 1,000 mcg PO DAILY 02/28/18 [History] Ferrous Sulfate [Iron] 325 mg PO DAILY 02/28/18 [History] GlipiZIDE [Glipizide ER] 10 mg PO DAILY 02/28/18 [History] Metoprolol Succinate [Toprol Xl] 50 mg PO DAILY 02/28/18 [History] Omeprazole [PriLOSEC] 20 mg PO DAILY 02/28/18 [History] Ondansetron HCl [Zofran] 8 mg PO Q8H PRN 02/28/18 [History] Pioglitazone HCl [Actos] 45 mg PO DAILY 02/28/18 [History] Potassium 99 mg PO DAILY 02/28/18 [History] Pramipexole Di-HCl [Pramipexole Dihydrochloride] 0.125 mg PO DAILY 02/28/18 [History] traZODone [TraZODone] 50 mg PO HS 02/28/18 [History] Allergy/AdvReac Type Severity Reaction Status Date / Time No Known Allergies Allergy Verified 09/02/15 12:42 All Systems: The remainder of the systems were reviewed and are negative Physical Examination Vital Signs: Vital Signs, Last 4 Hours Temp Pulse Resp BP Pulse Ox 03/02/18 15:15 122 16 148/95 97 03/02/18 14:40 111 12 135/86 97 03/02/18 14:25 107 12 135/86 96 03/02/18 14:10 108 12 138/91 97 03/02/18 13:55 106 03/02/18 13:35 108 12 142/90 96 03/02/18 13:30 97.5 F L 115 12 151/100 96 03/02/18 13:24 97.5 F L 111 12 163/99 96 03/02/18 13:20 12 149/93 95 Ventilator Settings Ventilator Settings: Ventilator Settings, Last 8 Hours Ventilator Tidal Volume 450 Setting Ventilator Tidal Volume 500 Setting Ventilator Tidal Volume 500 Setting Ventilator Respiratory Rate 16 Setting Ventilator Respiratory Rate 12 Setting Ventilator Respiratory Rate 12 Setting Actual Respiratory Rate 16 Actual Respiratory Rate 12 Actual Respiratory Rate 12 Positive End Expiratory 5 Pressure Positive End Expiratory 5 Pressure Positive End Expiratory 5 Pressure Peak Inspiratory Airway 20 Pressure Peak Inspiratory Airway 22 Pressure Peak Inspiratory Airway 25 Pressure Results - Laboratory Findings CBC and BMP: 03/02/18 06:04 03/02/18 06:04 PT/INR, D-dimer PT 15.9 Seconds (9.4-12.1) H 02/28/18 13:19 Abnormal lab findings: Abnormal lab results RBC 2.73 M/mcL (3.82-4.97) L 03/02/18 06:04 Hgb 7.5 g/dL (11.5-15.4) L 03/02/18 06:04 Hct 23.4 % (35.3-44.9) L 03/02/18 06:04 MCH 27.5 pg (28.0-33.3) L 03/02/18 06:04 RDW 15.3 % (11.5-14.5) H 03/02/18 06:04 Plt Count 486 K/mcL (140-400) H 03/02/18 06:04 PT 15.9 Seconds (9.4-12.1) H 02/28/18 13:19 Sodium 134 mEq/L (136-145) L 03/02/18 06:04 Potassium 3.1 mEq/L (3.5-5.1) L 03/02/18 06:04 Glucose 146 mg/dL (70-105) H 03/02/18 06:04 POC Glucose 185 mg/dL (70-99) H 03/02/18 13:25 Calcium 8.5 mg/dL (8.6-10.3) L 03/02/18 06:04 Iron < 10 mcg/dL (50-170) L 03/02/18 06:04 Transferrin 109 mg/dL (203-362) L 03/02/18 06:04 Ferritin 802 ng/mL (10-120) H 03/02/18 06:04 Alkaline Phosphatase 105 Units/L (34-104) H 03/01/18 05:21 Ammonia < 10 mcmol/L (16-53) L 02/28/18 13:19 Lactate Dehydrogenase 113 Units/L (140-271) L 03/01/18 05:21 B-Natriuretic Peptide 145 pg/mL (Less than 100) H 02/28/18 13:19 Serum Total Protein 6.2 g/dL (6.4-8.9) L 03/01/18 05:21 Albumin 2.4 g/dL (3.5-5.7) L 03/01/18 05:21 Globulin 3.8 g/dL (2.4-3.5) H 03/01/18 05:21 Albumin/Globulin Ratio 0.6 (1.1-2.2) L 03/01/18 05:21 Vitamin B12 > 1500 pg/mL (250-1100) H 03/02/18 06:04 Urine Clarity Cloudy (Clear) A 02/28/18 13:29 Ur Specific [place] > 1.030 (1.010-1.025) H 02/28/18 13:29 Urine Protein 30 mg/dL (Neg-Trace) H 02/28/18 13:29 Urine Ketones Trace mg/dL (Negative) H 02/28/18 13:29 Urine Nitrite Positive (Negative) A 02/28/18 13:29 Ur Leukocyte Esterase Moderate (Negative) H 02/28/18 13:29 Urine Microscopic WBC 5-15 per hpf (0-3) H 02/28/18 13:29 Urine Bacteria Many per hpf (None-Few) H 02/28/18 13:29 Ur Culture Indicated? YES (NO) A 02/28/18 13:29 Periton Tot Nuc Cells 6653 TNC/mcL (0-300) H 02/28/18 15:59 Stool Occult Bld Scrn Positive (Negative) A 02/28/18 13:36 - Microbiology Findings Microbiology Findings: Microbiology, Last 48 Hours 03/01/18 15:59 Body Fluid Culture - Preliminary Peritoneal Fluid 02/28/18 13:29 Urine Culture - Final Urine,Clean Catch Escherichia coli 02/28/18 13:11 Blood Culture - Preliminary Peripheral Venipuncture Culture is incubating and being continuously monitored for growth. Final report to follow. 02/28/18 13:19 Blood Culture - Preliminary Peripheral Venipuncture Culture is incubating and being continuously monitored for growth. Final report to follow. - Clinical Findings Intake & Output: Intake & Output 1003/02/18 03/02/18 07:59 15:59 23:59 Intake Total 110 / 110 Output Total 0 / 0 0 / 0 Balance 0 / 0 110 / 110 Weight 74.1 kg 81.5 kg Consult Discharge Plan - Plan Referrals: Grupo Purcell DO [Primary Care Provider] - - Attending Attestation I saw and evaluated this patient and my medical decision-making was reviewed with the Resident Physician. I agree with the documented findings, disposition and treatment plan as described except to the extent set forth below. We independently had [id number] contact with the patient I spent 35 minutes of Critical Care time with this patient. It involved decision making of high complexity to assess, manipulate, and support vital organ system failure and/or to prevent further life threatening deterioration of the patient's condition. The time involved in the performance of separately reportable procedures was not counted toward critical care time. Patient seen and examined at bedside Labs, radiology, chart personally reviewed. Management was reviewed during multidisciplinary critical care rounds. 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 Pulm: Patient has acceptable oxygenation and ventilation reason for acute hypoxic respiratory failure is multifactorial with intravenous anesthetic with volume overload patient went into respiratory distress agree with diuresis we will attempt to extubate her in the morning. Cards: Patient has extensive coronary artery disease with some ischemic changes in the EKG we will trend troponins concern for NSTEMI now she has supraventricular arrhythmias which degenerates to atrial fibrillation will get a stat echo then we will decide about rate controlling agent in the Lopressor and Cardizem. FEN-GI: Nothing by mouth for now consulted for GI bleed possible endoscopy for tomorrow Renal: Labs and output reviewed to continue diuresis as tolerated , patient had obstructing right ureteral calculus supported by J stent. ID: Patient has UTI to continue ceftriaxone Heme/Onc: Patient has peritoneal carcinomatosis had omental biopsy waiting for final biopsy result had some ascitic fluid sampled pending cytology Endo: Glucose Monitored Integ/MSK: Skin Care per routine ICU Nursing Protocol to prevent ulcers. Lines: All lines examined without evidence of infection : Dispo: Critically ill CODE:Full Code <Goran Ely - Last Filed: 03/02/18 17:11> Date of Encounter: 03/02/18 Time of Encounter: 14:43 Assessment and Plan (1) Respiratory failure with hypoxia Current Visit: Yes Status: Acute Patient is currently intubated Etiology unclear at this time Patient was extubated and became hypoxic along with the development of SVT and a short run of V tach that converted on her own. Sao2 was down to 88% Vent settings rate 16, TV 450, FIO2 40 and PEEP 5 Sedated with Precedex and Fentanyl possible extubation tomorrow lasix 40 mg IV ordered Qualifiers: Chronicity: acute Qualified Code(s): J96.01 - Acute respiratory failure with hypoxia (2) Peritoneal carcinomatosis Current Visit: Yes Status: Suspected Origin unknown s/p paracentesis and biopsy post op day 1 oncology consulted appreciate recs (3) Anemia Current Visit: Yes Status: Acute etiology unknown at this time Hemoglobin 7.5 iron <10 transferrin 109 ferratin 802 Stool was positive for occult blood. GI consulted appreciate rec Colonoscopy and EGD was scheduled for tomorrow Qualifiers: Anemia type: unspecified type Qualified Code(s): D64.9 - Anemia, unspecified (4) UTI (urinary tract infection) Current Visit: Yes Status: Acute E. coli cultured stone removed continue Rocephin day 3 Qualifiers: Urinary tract infection type: acute cystitis Hematuria presence: without hematuria Qualified Code(s): N30.00 - Acute cystitis without hematuria (5) CAD (coronary artery disease) Current Visit: Yes Status: Chronic CABG in 2011 ischemic changes on EKG trend troponin consider rate controlling agent Qualifiers: Coronary Disease-Associated Artery/Lesion type: [place] artery [place] vs. transplanted heart: [place] heart Associated angina: without angina Qualified Code(s): I25.10 - Atherosclerotic heart disease of [place] coronary artery without angina pectoris (6) Afib Current Visit: Yes Status: Acute Concern fornew onset a fib rate 130 to 150 lopressor 5 mg q8hrs to start swithch to digoxin if patient cannot tolerate will reevaluate after echo Qualifiers: Atrial fibrillation type: unspecified Qualified Code(s): I48.91 - Unspecified atrial fibrillation (7) CKD (chronic kidney disease) stage 3, GFR 30-59 ml/min Current Visit: Yes Status: Chronic chronic creatinine 0.83 (8) Cirrhosis of liver Current Visit: Yes Status: Chronic Based on CT scan findings patient has cirrhosis of the liver. Will treat supportively. 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 fci insulin use status Diabetes mellitus complication status: with kidney complications Diabetes mellitus complication detail: with chronic kidney disease Chronic kidney disease stage: stage 3 (moderate) Qualified Code(s): E11.22 - Type 2 diabetes mellitus with diabetic chronic kidney disease; N18.3 - Chronic kidney disease, stage 3 (moderate) (10) Essential hypertension Current Visit: Yes Status: Chronic on metoprolol at home currently 148/95 History of Present Illness Consult date: 03/02/18 Requesting physician: Miquel Lara Reason for consult: other (SVT) Chief complaint: SVT History of present illness: Patient was a hospital patient who was admitted for peritoneal carcinomatosis with abdominal pain. The patient also had a UTI with 8mm distal ureteral stone without hydronephrosis. Patient was taken the O.R. for a stone removal with stent placement. Upon extubation the patient developed SVT HR 161 then was given 6mg adenosine the patient converted to sinus rhythm. Then Vtach developed but the patient converted on her own. SaO2 was 88% Amiodarone 150 mg was given. Patient was then intubated. Patient arrived to the ICU SPo2 98% HR 109 BP 141/113. Past Med Surg Social Fam HX - Past Medical History Medical history: coronary artery disease, diabetes, hyperlipidemia, hypertension Additional medical history: DIABETIC NEUROPATHY Psychiatric history: no psych history - Past Surgical History Surgical History: coronary bypass (CABG) - Social History Smoking Status: Never smoker Smokeless Tobacco Status: No Alcohol use: none Drug use: none - Family History Mother Living Status: Hx Family Cardiac Disorders: Yes (HTN) Hx Family Respiratory Disorders: No Hx Family Cancer: No Hx Family GI Disorders: No Hx Family Genitourinary Disorders: No Hx Family Endocrine Disorder: Yes Hx Family Musculoskeletal Disorders: No Hx Family Neuromuscular Disorders: No Hx Family Neurologic Disorders: No Hx Family HEENT Disorders: No Hx Family Autoimmune Disorders: No Hx Family Reproductive Disorders: No Hx Family Psychosocial Disorders: No Father Hx Family Cardiac Disorders: No Hx Family Respiratory Disorders: No Hx Family Cancer: Yes (mouth) Hx Family GI Disorders: No Hx Family Genitourinary Disorders: No Hx Family Endocrine Disorder: No Hx Family Musculoskeletal Disorders: No Hx Family Neuromuscular Disorders: No Hx Family Neurologic Disorders: No Hx Family HEENT Disorders: No Hx Family Autoimmune Disorders: No Hx Family Reproductive Disorders: No Hx Family Psychosocial Disorders: No ROS unobtainable: due to endotracheal tube All Systems: The remainder of the systems were reviewed and are negative Physical Examination Vital Signs: Vital Signs, Last 4 Hours Temp Pulse Resp BP Pulse Ox 03/02/18 14:40 111 12 135/86 97 03/02/18 14:25 107 12 135/86 96 03/02/18 14:10 108 12 138/91 97 03/02/18 13:55 106 03/02/18 13:35 108 12 142/90 96 03/02/18 13:30 97.5 F L 115 12 151/100 96 03/02/18 13:24 97.5 F L 111 12 163/99 96 03/02/18 13:20 12 149/93 95 General appearance: appears uncomfortable Eyes: nonicteric Auscultation: bilateral: clear Cardiovascular: irregular rhythm (a fib) Extremities: no cyanosis unable to assess due to mental status Ventilator Settings Ventilator Settings: Ventilator Settings, Last 8 Hours Ventilator Tidal Volume 500 Setting Ventilator Tidal Volume 500 Setting Ventilator Respiratory Rate 12 Setting Ventilator Respiratory Rate 12 Setting Actual Respiratory Rate 12 Actual Respiratory Rate 12 Positive End Expiratory 5 Pressure Positive End Expiratory 5 Pressure Peak Inspiratory Airway 22 Pressure Peak Inspiratory Airway 25 Pressure Results - Laboratory Findings CBC and BMP: 03/02/18 06:04 03/02/18 16:06 PT/INR, D-dimer PT 15.9 Seconds (9.4-12.1) H 02/28/18 13:19 Abnormal lab findings: Abnormal lab results RBC 2.73 M/mcL (3.82-4.97) L 03/02/18 06:04 Hgb 7.5 g/dL (11.5-15.4) L 03/02/18 06:04 Hct 23.4 % (35.3-44.9) L 03/02/18 06:04 MCH 27.5 pg (28.0-33.3) L 03/02/18 06:04 RDW 15.3 % (11.5-14.5) H 03/02/18 06:04 Plt Count 486 K/mcL (140-400) H 03/02/18 06:04 PT 15.9 Seconds (9.4-12.1) H 02/28/18 13:19 Sodium 134 mEq/L (136-145) L 03/02/18 06:04 Potassium 3.1 mEq/L (3.5-5.1) L 03/02/18 06:04 Glucose 146 mg/dL (70-105) H 03/02/18 06:04 POC Glucose 185 mg/dL (70-99) H 03/02/18 13:25 Calcium 8.5 mg/dL (8.6-10.3) L 03/02/18 06:04 Iron < 10 mcg/dL (50-170) L 03/02/18 06:04 Transferrin 109 mg/dL (203-362) L 03/02/18 06:04 Ferritin 802 ng/mL (10-120) H 03/02/18 06:04 Alkaline Phosphatase 105 Units/L (34-104) H 03/01/18 05:21 Ammonia < 10 mcmol/L (16-53) L 02/28/18 13:19 Lactate Dehydrogenase 113 Units/L (140-271) L 03/01/18 05:21 B-Natriuretic Peptide 145 pg/mL (Less than 100) H 02/28/18 13:19 Serum Total Protein 6.2 g/dL (6.4-8.9) L 03/01/18 05:21 Albumin 2.4 g/dL (3.5-5.7) L 03/01/18 05:21 Globulin 3.8 g/dL (2.4-3.5) H 03/01/18 05:21 Albumin/Globulin Ratio 0.6 (1.1-2.2) L 03/01/18 05:21 Vitamin B12 > 1500 pg/mL (250-1100) H 03/02/18 06:04 Urine Clarity Cloudy (Clear) A 02/28/18 13:29 Ur Specific [place] > 1.030 (1.010-1.025) H 02/28/18 13:29 Urine Protein 30 mg/dL (Neg-Trace) H 02/28/18 13:29 Urine Ketones Trace mg/dL (Negative) H 02/28/18 13:29 Urine Nitrite Positive (Negative) A 02/28/18 13:29 Ur Leukocyte Esterase Moderate (Negative) H 02/28/18 13:29 Urine Microscopic WBC 5-15 per hpf (0-3) H 02/28/18 13:29 Urine Bacteria Many per hpf (None-Few) H 02/28/18 13:29 Ur Culture Indicated? YES (NO) A 02/28/18 13:29 Periton Tot Nuc Cells 6653 TNC/mcL (0-300) H 02/28/18 15:59 Stool Occult Bld Scrn Positive (Negative) A 02/28/18 13:36 - Microbiology Findings Microbiology Findings: Microbiology, Last 48 Hours 03/01/18 15:59 Body Fluid Culture - Preliminary Peritoneal Fluid 02/28/18 13:29 Urine Culture - Final Urine,Clean Catch Escherichia coli 02/28/18 13:11 Blood Culture - Preliminary Peripheral Venipuncture Culture is incubating and being continuously monitored for growth. Final report to follow. 02/28/18 13:19 Blood Culture - Preliminary Peripheral Venipuncture Culture is incubating and being continuously monitored for growth. Final report to follow. - Clinical Findings Intake & Output: Intake & Output 03/01/18 03/02/18 03/02/18 23:59 07:59 15:59 Intake Total 1000 / 1000 110 / 110 Output Total 0 / 0 0 / 0 Balance 1000 / 1000 0 / 0 110 / 110 Weight 74.1 kg 81.5 kg
[2018-03-02] MEDS ORDERED: FentaNYL (PF) 1,000 MCG in 0.9 % Sodium Chloride 80 ML IVC SCH (15:00)
[2018-03-02 16:32] LABS: VBG Ionized Calcium 1.16 mmol/L (1.15-1.35)
[2018-03-02 16:39] LABS: BUN/Creatinine Ratio 15 (6-26); Blood Urea Nitrogen 14 mg/dL (8-23); Calcium 9.1 mg/dL (8.6-10.3); Carbon Dioxide 19 mEq/L (23-29); Chloride 99 mEq/L (98-107); Glucose 223 mg/dL (70-105); Osmolality,Calculated 283 (280-300); Potassium 3.8 mEq/L (3.5-5.1); Sodium 133 mEq/L (136-145); eGFR For Non-African Americans 58 (> 60)
[2018-03-02] MEDS ORDERED: *HR* Dextrose 50 % in Water (Syg) 50 ML SYRINGE IVP PRN (16:57)
[2018-03-02] MEDS ORDERED: Dextrose Gel 15 GM/37.5 ML TUBE PO PRN ×2 (16:57)
[2018-03-02] MEDS ORDERED: D5% in Water 1,000 ML IVC PRN (16:57)
[2018-03-02] MEDS: Artificial Tears SOLN 15 ML BOTTLE BOTH EYES SCH ×3 (17:00→23:11)
--- NOTE | 2018-03-02 17:29 | Oncology Inp Consult Note ---
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 She underwent core needle biopsy of omental caking and paracentesis (with removal of 2750 mL of straw-colored ascites) on 03/01/2018. Final pathology is pending Discussed radiographic images concerning for metastatic process with patients family at bedside Differentials may include metastatic colon or gynecologic malignancy, among others Further workup/staging recommendations pending stability of her cardiac/respiratory function as well as confirmation of malignancy origin with IHC staining (3) Cirrhosis of liver Status: Chronic Assessment and plan: GI following Workup initiated in recent outpatient consultation: Hepatitis negative ROXY, ANCA, AMA were negative AFP pending EGD planned pending her cardiac stability following admission to ICU Qualifiers: Hepatic cirrhosis type: unspecified hepatic cirrhosis Ascites presence: with ascites Qualified Code(s): K74.60 - Unspecified cirrhosis of liver; R18.8 - Other ascites - Data of Consult Patient: new to practice Consult date: 03/02/18 Requesting Physician: Miquel Lara Primary Care Provider: Grupo Purcell DO - Consult Narrative Reason for consult: Suspected peritoneal carcinomatosis History of present illness: Ms. Cunningham is a 77 year old female who presented to [facility] ER on 02/28/18 for abdominal pain and distention, which had been worsening over the past month. She had a CT abdomen/pelvis on 02/24/[address] Ortiz which revealed mesenteric nodularity as well as a 2.2 cm nodular mesenteric mass with several smaller nodular masses. She was planned for an outpatient biopsy, however, presented for worsening symptoms. Repeat CT of the abdomen in ER confirmed extensive peritoneal carcinomatosis with small volume ascites. She underwent core needle biopsy of omental caking and paracentesis on 03/01/2018. GI was consulted secondary to her anemia on presentation (she was seen as outpatient by Dr. Meraz on 02/25 for cirrhosis which appears to be a new dx). She has been a prior patient of Dr. Arias with history of PAULY. Her last colonoscopy was 4-5 years ago which was normal per patient. She was planned for EGD/Colonosc opy. She was also seen in consultation by urology for incidental finding of right uretal calculus measuring 8mm, her urine was grossly positive for infection. Today, she underwent cystoscopy, right retrograde ureteral pyelography, right double-J stent placement on 03/01/2018. Upon extubation she developed SVT which converted following adenosine, then Vtach with spontaneous conversion following. She is currently intubated and in the ICU. The above information was obtained mainly by chart review. Past Med Surg Social Fam HX - Past Medical History Medical history: coronary artery disease, diabetes, hyperlipidemia, hypertension Additional medical history: DIABETIC NEUROPATHY Psychiatric history: no psych history - Past Surgical History Surgical History: coronary bypass (CABG) - Social History Smoking Status: Never smoker Smokeless Tobacco Status: No Alcohol use: none Drug use: none - Family History Father Hx Family Cardiac Disorders: No Hx Family Respiratory Disorders: No Hx Family Cancer: Yes (mouth) Hx Family GI Disorders: No Hx Family Genitourinary Disorders: No Hx Family Endocrine Disorder: No Hx Family Musculoskeletal Disorders: No Hx Family Neuromuscular Disorders: No Hx Family Neurologic Disorders: No Hx Family HEENT Disorders: No Hx Family Autoimmune Disorders: No Hx Family Reproductive Disorders: No Hx Family Psychosocial Disorders: No Mother Living Status: Hx Family Cardiac Disorders: Yes (HTN) Hx Family Respiratory Disorders: No Hx Family Cancer: No Hx Family GI Disorders: No Hx Family Genitourinary Disorders: No Hx Family Endocrine Disorder: Yes Hx Family Musculoskeletal Disorders: No Hx Family Neuromuscular Disorders: No Hx Family Neurologic Disorders: No Hx Family HEENT Disorders: No Hx Family Autoimmune Disorders: No Hx Family Reproductive Disorders: No Hx Family Psychosocial Disorders: No Medications and Allergies Acetaminophen [Tylenol Arthritis] 650 mg PO TID PRN 02/28/18 [History] Aspirin [Adult Aspirin] 81 mg PO DAILY 02/28/18 [History] Atorvastatin [Lipitor] 40 mg PO HS 02/28/18 [History] Cyanocobalamin (Vitamin B-12) [Vitamin B-12] 1,000 mcg PO DAILY 02/28/18 [History] Ferrous Sulfate [Iron] 325 mg PO DAILY 02/28/18 [History] GlipiZIDE [Glipizide ER] 10 mg PO DAILY 02/28/18 [History] Metoprolol Succinate [Toprol Xl] 50 mg PO DAILY 02/28/18 [History] Ondansetron HCl [Zofran] 8 mg PO Q8H PRN 02/28/18 [History] Pioglitazone HCl [Actos] 45 mg PO DAILY 02/28/18 [History] Pramipexole Di-HCl [Pramipexole Dihydrochloride] 0.125 mg PO DAILY 02/28/18 [History] RX: Omeprazole [PriLOSEC] 20 mg PO DAILY 02/28/18 [History] RX: Potassium 99 mg PO DAILY 02/28/18 [History] RX: traZODone [TraZODone] 50 mg PO HS 02/28/18 [History] Allergy/AdvReac Type Severity Reaction Status Date / Time No Known Allergies Allergy Verified 09/02/15 12:42 ROS unobtainable: due to endotracheal tube Oncology - Exam - Constitutional Vitals: Temp Pulse Resp BP Pulse Ox 97.5 F L 114 16 122/55 98 03/02/18 13:30 03/02/18 16:00 03/02/18 17:11 03/02/18 17:11 03/02/18 17:11 General appearance: no febrile Exam: Minimally responsive secondary to sedation on ventilator support, appears uncomfortable but in no distress - Head Head exam: Present: atraumatic - Respiratory Respiratory exam: Present: CTAB - Cardiovascular Cardiovascular exam: Present: irregular rhythm, tachycardia - GI/Abdominal GI/Abdominal exam: Present: distended, normal bowel sounds, soft - Neurological Exam Neurological exam: Present: altered - Skin Skin exam: Present: dry, normal color, warm Oncology - Results Labs: Consult Discharge Plan - Plan Referrals: Grupo Purcell DO [Primary Care Provider] - <Hardik Ding S - Last Filed: 03/03/18 08:05> - Data of Consult Requesting Physician: Miquel Lara Primary Care Provider: Grupo Purcell DO - Consult Narrative History of present illness: Ms. Cunningham is a 77 year old female Oncology - Exam - Constitutional Vitals: Temp Pulse Resp BP Pulse Ox 97.6 F 98 14 126/80 98 03/03/18 04:00 03/03/18 07:30 03/03/18 07:30 03/03/18 07:30 03/03/18 07:40 Oncology - Results Labs: 03/03/18 03/03/18 03/03/18 05:59 04:45 03:52 WBC RBC Hgb Hct MCV MCH MCHC RDW Plt Count MPV Immature Gran % Seg Neutrophils % Lymphocytes % Monocytes % Eosinophils % Basophils % Neutrophils # Lymphocytes # Monocytes # Eosinophils # Basophils # PT INR Sample Site R Radial ABG pH 7.43 ABG pCO2 28 L ABG pO2 148 H ABG HCO3 19 L ABG Total CO2 19 L ABG O2 Saturation 99 H ABG Base Excess -5 L Fabián Test N/A Respiration Rate 16 O2 Delivery Device Adult Vent Blood Gas Modality PRVC Inspired O2 40.0 Tidal Volume 450 PEEP 5 Sodium Potassium Chloride Carbon Dioxide BUN Creatinine Est GFR ( Amer) Est GFR (Non-Af Amer) BUN/Creatinine Ratio Glucose POC Glucose 158 H Calculated Osmolality Lactic Acid Calcium Venous Ioniz Calcium 1.18 Phosphorus Magnesium Iron % Saturation Transferrin Ferritin Total Bilirubin AST ALT Alkaline Phosphatase Ammonia Lactate Dehydrogenase Troponin I B-Natriuretic Peptide Serum Total Protein Albumin Globulin Albumin/Globulin Ratio Vitamin B12 Folate Urine Color Urine Clarity Urine pH Ur Specific Brooks Urine Protein Urine Glucose (UA) Urine Ketones Urine Blood Urine Nitrite Urine Bilirubin Urine Urobilinogen Ur Leukocyte Esterase Urine Microscopic RBC Urine Microscopic WBC Ur Squamous Epith Cells Urine Bacteria Hyaline Casts Ur Culture Indicated? Peritoneal Appearance Peritoneal Volume Peritoneal RBC Periton Tot Nuc Cells Periton Neutrophils Periton Band Neuts Peritoneal Eosinophils Peritoneal Basophils Periton Lymphocytes % Periton Monocytes % Periton Other Cells % Peritoneal Tot Protein Peritoneal LDH Peritoneal Glucose Peritoneal Amylase Stool Occult Bld Scrn Blood Type Antibody Screen Crossmatch 03/03/18 03/03/18 03/03/18 03:35 03:35 03:35 WBC 13.1 H D RBC 3.17 L Hgb 8.8 L Hct 27.4 L MCV 86.4 MCH 27.8 L MCHC 32.1 RDW 15.1 H Plt Count 452 H MPV 9.5 Immature Gran % 1.9 Seg Neutrophils % 85.0 Lymphocytes % 7.2 Monocytes % 5.7 Eosinophils % 0.0 Basophils % 0.2 Neutrophils # 11.1 H Lymphocytes # 0.9 Monocytes # 0.8 Eosinophils # 0.0 Basophils # 0.0 PT INR Sample Site ABG pH ABG pCO2 ABG pO2 ABG HCO3 ABG Total CO2 ABG O2 Saturation ABG Base Excess Fabián Test Respiration Rate O2 Delivery Device Blood Gas Modality Inspired O2 Tidal Volume PEEP Sodium 134 L Potassium 3.9 Chloride 105 Carbon Dioxide 19 L BUN 22 Creatinine 1.10 Est GFR ( Amer) 59 L Est GFR (Non-Af Amer) 48 L BUN/Creatinine Ratio 20 Glucose 169 H POC Glucose Calculated Osmolality 285 Lactic Acid Calcium 8.4 L Venous Ioniz Calcium Phosphorus 3.6 Magnesium 1.5 L Iron % Saturation Transferrin Ferritin Total Bilirubin 0.5 AST 37 ALT 11 Alkaline Phosphatase 100 Ammonia Lactate Dehydrogenase Troponin I B-Natriuretic Peptide Serum Total Protein 6.3 L Albumin 2.5 L Globulin 3.8 H Albumin/Globulin Ratio 0.7 L Vitamin B12 Folate Urine Color Urine Clarity Urine pH Ur Specific Brooks Urine Protein Urine Glucose (UA) Urine Ketones Urine Blood Urine Nitrite Urine Bilirubin Urine Urobilinogen Ur Leukocyte Esterase Urine Microscopic RBC Urine Microscopic WBC Ur Squamous Epith Cells Urine Bacteria Hyaline Casts Ur Culture Indicated? Peritoneal Appearance Peritoneal Volume Peritoneal RBC Periton Tot Nuc Cells Periton Neutrophils Periton Band Neuts Peritoneal Eosinophils Peritoneal Basophils Periton Lymphocytes % Periton Monocytes % Periton Other Cells % Peritoneal Tot Protein Peritoneal LDH Peritoneal Glucose Peritoneal Amylase Stool Occult Bld Scrn Blood Type Antibody Screen Crossmatch 03/03/18 03/02/18 03/02/18 01:15 23:13 21:51 WBC RBC Hgb Hct MCV MCH MCHC RDW Plt Count MPV Immature Gran % Seg Neutrophils % Lymphocytes % Monocytes % Eosinophils % Basophils % Neutrophils # Lymphocytes # Monocytes # Eosinophils # Basophils # PT INR Sample Site ABG pH ABG pCO2 ABG pO2 ABG HCO3 ABG Total CO2 ABG O2 Saturation ABG Base Excess Fabián Test Respiration Rate O2 Delivery Device Blood Gas Modality Inspired O2 Tidal Volume PEEP Sodium Potassium Chloride Carbon Dioxide BUN Creatinine Est GFR ( Amer) Est GFR (Non-Af Amer) BUN/Creatinine Ratio Glucose POC Glucose 162 H Calculated Osmolality Lactic Acid Calcium Venous Ioniz Calcium Phosphorus Magnesium Iron % Saturation Transferrin Ferritin Total Bilirubin AST ALT Alkaline Phosphatase Ammonia Lactate Dehydrogenase Troponin I 2.08 H* 1.68 H* B-Natriuretic Peptide Serum Total Protein Albumin Globulin Albumin/Globulin Ratio Vitamin B12 Folate Urine Color Urine Clarity Urine pH Ur Specific Brooks Urine Protein Urine Glucose (UA) Urine Ketones Urine Blood Urine Nitrite Urine Bilirubin Urine Urobilinogen Ur Leukocyte Esterase Urine Microscopic RBC Urine Microscopic WBC Ur Squamous Epith Cells Urine Bacteria Hyaline Casts Ur Culture Indicated? Peritoneal Appearance Peritoneal Volume Peritoneal RBC Periton Tot Nuc Cells Periton Neutrophils Periton Band Neuts Peritoneal Eosinophils Peritoneal Basophils Periton Lymphocytes % Periton Monocytes % Periton Other Cells % Peritoneal Tot Protein Peritoneal LDH Peritoneal Glucose Peritoneal Amylase Stool Occult Bld Scrn Blood Type Antibody Screen Crossmatch 03/02/18 03/02/18 03/02/18 18:00 16:25 16:06 WBC RBC Hgb Hct MCV MCH MCHC RDW Plt Count MPV Immature Gran % Seg Neutrophils % Lymphocytes % Monocytes % Eosinophils % Basophils % Neutrophils # Lymphocytes # Monocytes # Eosinophils # Basophils # PT INR Sample Site ABG pH ABG pCO2 ABG pO2 ABG HCO3 ABG Total CO2 ABG O2 Saturation ABG Base Excess Fabián Test Respiration Rate O2 Delivery Device Blood Gas Modality Inspired O2 Tidal Volume PEEP Sodium Potassium Chloride Carbon Dioxide BUN Creatinine Est GFR ( Amer) Est GFR (Non-Af Amer) BUN/Creatinine Ratio Glucose POC Glucose 253 H Calculated Osmolality Lactic Acid Calcium Venous Ioniz Calcium 1.16 Phosphorus Magnesium 1.6 Iron % Saturation Transferrin Ferritin Total Bilirubin AST ALT Alkaline Phosphatase Ammonia Lactate Dehydrogenase Troponin I B-Natriuretic Peptide Serum Total Protein Albumin Globulin Albumin/Globulin Ratio Vitamin B12 Folate Urine Color Urine Clarity Urine pH Ur Specific Brooks Urine Protein Urine Glucose (UA) Urine Ketones Urine Blood Urine Nitrite Urine Bilirubin Urine Urobilinogen Ur Leukocyte Esterase Urine Microscopic RBC Urine Microscopic WBC Ur Squamous Epith Cells Urine Bacteria Hyaline Casts Ur Culture Indicated? Peritoneal Appearance Peritoneal Volume Peritoneal RBC Periton Tot Nuc Cells Periton Neutrophils Periton Band Neuts Peritoneal Eosinophils Peritoneal Basophils Periton Lymphocytes % Periton Monocytes % Periton Other Cells % Peritoneal Tot Protein Peritoneal LDH Peritoneal Glucose Peritoneal Amylase Stool Occult Bld Scrn Blood Type Antibody Screen Crossmatch 03/02/18 03/02/18 03/02/18 16:06 16:06 16:06 WBC RBC Hgb Hct MCV MCH MCHC RDW Plt Count MPV Immature Gran % Seg Neutrophils % Lymphocytes % Monocytes % Eosinophils % Basophils % Neutrophils # Lymphocytes # Monocytes # Eosinophils # Basophils # PT INR Sample Site ABG pH ABG pCO2 ABG pO2 ABG HCO3 ABG Total CO2 ABG O2 Saturation ABG Base Excess Fabián Test Respiration Rate O2 Delivery Device Blood Gas Modality Inspired O2 Tidal Volume PEEP Sodium 133 L Potassium 3.8 Chloride 99 Carbon Dioxide 19 L BUN 14 Creatinine 0.94 Est GFR ( Amer) > 60 Est GFR (Non-Af Amer) 58 L BUN/Creatinine Ratio 15 Glucose 223 H POC Glucose Calculated Osmolality 283 Lactic Acid Calcium 9.1 Venous Ioniz Calcium Phosphorus 4.0 Magnesium Iron % Saturation Transferrin Ferritin Total Bilirubin AST ALT Alkaline Phosphatase Ammonia Lactate Dehydrogenase Troponin I 0.58 H* B-Natriuretic Peptide 188 H Serum Total Protein Albumin Globulin Albumin/Globulin Ratio Vitamin B12 Folate Urine Color Urine Clarity Urine pH Ur Specific Brooks Urine Protein Urine Glucose (UA) Urine Ketones Urine Blood Urine Nitrite Urine Bilirubin Urine Urobilinogen Ur Leukocyte Esterase Urine Microscopic RBC Urine Microscopic WBC Ur Squamous Epith Cells Urine Bacteria Hyaline Casts Ur Culture Indicated? Peritoneal Appearance Peritoneal Volume Peritoneal RBC Periton Tot Nuc Cells Periton Neutrophils Periton Band Neuts Peritoneal Eosinophils Peritoneal Basophils Periton Lymphocytes % Periton Monocytes % Periton Other Cells % Peritoneal Tot Protein Peritoneal LDH Peritoneal Glucose Peritoneal Amylase Stool Occult Bld Scrn Blood Type Antibody Screen Crossmatch 03/02/18 03/02/18 03/02/18 13:25 06:14 06:04 WBC RBC Hgb Hct MCV MCH MCHC RDW Plt Count MPV Immature Gran % Seg Neutrophils % Lymphocytes % Monocytes % Eosinophils % Basophils % Neutrophils # Lymphocytes # Monocytes # Eosinophils # Basophils # PT INR Sample Site ABG pH ABG pCO2 ABG pO2 ABG HCO3 ABG Total CO2 ABG O2 Saturation ABG Base Excess Fabián Test Respiration Rate O2 Delivery Device Blood Gas Modality Inspired O2 Tidal Volume PEEP Sodium Potassium Chloride Carbon Dioxide BUN Creatinine Est GFR ( Amer) Est GFR (Non-Af Amer) BUN/Creatinine Ratio Glucose POC Glucose 185 H 148 H Calculated Osmolality Lactic Acid Calcium Venous Ioniz Calcium Phosphorus Magnesium Iron < 10 L % Saturation TNP Transferrin 109 L Ferritin 802 H Total Bilirubin AST ALT Alkaline Phosphatase Ammonia Lactate Dehydrogenase Troponin I B-Natriuretic Peptide Serum Total Protein Albumin Globulin Albumin/Globulin Ratio Vitamin B12 Folate Urine Color Urine Clarity Urine pH Ur Specific Brooks Urine Protein Urine Glucose (UA) Urine Ketones Urine Blood Urine Nitrite Urine Bilirubin Urine Urobilinogen Ur Leukocyte Esterase Urine Microscopic RBC Urine Microscopic WBC Ur Squamous Epith Cells Urine Bacteria Hyaline Casts Ur Culture Indicated? Peritoneal Appearance Peritoneal Volume Peritoneal RBC Periton Tot Nuc Cells Periton Neutrophils Periton Band Neuts Peritoneal Eosinophils Peritoneal Basophils Periton Lymphocytes % Periton Monocytes % Periton Other Cells % Peritoneal Tot Protein Peritoneal LDH Peritoneal Glucose Peritoneal Amylase Stool Occult Bld Scrn Blood Type Antibody Screen Crossmatch 03/02/18 03/02/18 03/02/18 06:04 06:04 06:04 WBC 7.3 RBC 2.73 L Hgb 7.5 L Hct 23.4 L MCV 85.7 MCH 27.5 L MCHC 32.1 RDW 15.3 H Plt Count 486 H MPV 9.4 Immature Gran % 0.8 Seg Neutrophils % 73.3 Lymphocytes % 10.7 Monocytes % 11.1 Eosinophils % 3.6 Basophils % 0.5 Neutrophils # 5.3 Lymphocytes # 0.8 Monocytes # 0.8 Eosinophils # 0.3 Basophils # 0.0 PT INR Sample Site ABG pH ABG pCO2 ABG pO2 ABG HCO3 ABG Total CO2 ABG O2 Saturation ABG Base Excess Fabián Test Respiration Rate O2 Delivery Device Blood Gas Modality Inspired O2 Tidal Volume PEEP Sodium 134 L Potassium 3.1 L Chloride 103 Carbon Dioxide 23 BUN 13 Creatinine 0.83 Est GFR ( Amer) > 60 Est GFR (Non-Af Amer) > 60 BUN/Creatinine Ratio 16 Glucose 146 H POC Glucose Calculated Osmolality 281 Lactic Acid Calcium 8.5 L Venous Ioniz Calcium Phosphorus Magnesium Iron % Saturation Transferrin Ferritin Total Bilirubin AST ALT Alkaline Phosphatase Ammonia Lactate Dehydrogenase Troponin I B-Natriuretic Peptide Serum Total Protein Albumin Globulin Albumin/Globulin Ratio Vitamin B12 > 1500 H Folate 10.0 Urine Color Urine Clarity Urine pH Ur Specific Brooks Urine Protein Urine Glucose (UA) Urine Ketones Urine Blood Urine Nitrite Urine Bilirubin Urine Urobilinogen Ur Leukocyte Esterase Urine Microscopic RBC Urine Microscopic WBC Ur Squamous Epith Cells Urine Bacteria Hyaline Casts Ur Culture Indicated? Peritoneal Appearance Peritoneal Volume Peritoneal RBC Periton Tot Nuc Cells Periton Neutrophils Periton Band Neuts Peritoneal Eosinophils Peritoneal Basophils Periton Lymphocytes % Periton Monocytes % Periton Other Cells % Peritoneal Tot Protein Peritoneal LDH Peritoneal Glucose Peritoneal Amylase Stool Occult Bld Scrn Blood Type Antibody Screen Crossmatch 03/01/18 03/01/18 03/01/18 16:39 13:30 11:47 WBC RBC Hgb 8.9 L D Hct 27.3 L MCV MCH MCHC RDW Plt Count MPV Immature Gran % Seg Neutrophils % Lymphocytes % Monocytes % Eosinophils % Basophils % Neutrophils # Lymphocytes # Monocytes # Eosinophils # Basophils # PT INR Sample Site ABG pH ABG pCO2 ABG pO2 ABG HCO3 ABG Total CO2 ABG O2 Saturation ABG Base Excess Fabián Test Respiration Rate O2 Delivery Device Blood Gas Modality Inspired O2 Tidal Volume PEEP Sodium Potassium Chloride Carbon Dioxide BUN Creatinine Est GFR ( Amer) Est GFR (Non-Af Amer) BUN/Creatinine Ratio Glucose POC Glucose 124 H 126 H Calculated Osmolality Lactic Acid Calcium Venous Ioniz Calcium Phosphorus Magnesium Iron % Saturation Transferrin Ferritin Total Bilirubin AST ALT Alkaline Phosphatase Ammonia Lactate Dehydrogenase Troponin I B-Natriuretic Peptide Serum Total Protein Albumin Globulin Albumin/Globulin Ratio Vitamin B12 Folate Urine Color Urine Clarity Urine pH Ur Specific Brooks Urine Protein Urine Glucose (UA) Urine Ketones Urine Blood Urine Nitrite Urine Bilirubin Urine Urobilinogen Ur Leukocyte Esterase Urine Microscopic RBC Urine Microscopic WBC Ur Squamous Epith Cells Urine Bacteria Hyaline Casts Ur Culture Indicated? Peritoneal Appearance Peritoneal Volume Peritoneal RBC Periton Tot Nuc Cells Periton Neutrophils Periton Band Neuts Peritoneal Eosinophils Peritoneal Basophils Periton Lymphocytes % Periton Monocytes % Periton Other Cells % Peritoneal Tot Protein Peritoneal LDH Peritoneal Glucose Peritoneal Amylase Stool Occult Bld Scrn Blood Type Antibody Screen Crossmatch 03/01/18 03/01/18 03/01/18 05:39 05:21 05:21 WBC RBC Hgb Hct MCV MCH MCHC RDW Plt Count MPV Immature Gran % Seg Neutrophils % Lymphocytes % Monocytes % Eosinophils % Basophils % Neutrophils # Lymphocytes # Monocytes # Eosinophils # Basophils # PT INR Sample Site ABG pH ABG pCO2 ABG pO2 ABG HCO3 ABG Total CO2 ABG O2 Saturation ABG Base Excess Fabián Test Respiration Rate O2 Delivery Device Blood Gas Modality Inspired O2 Tidal Volume PEEP Sodium 136 Potassium 3.3 L Chloride 104 Carbon Dioxide 23 BUN 22 Creatinine 1.07 Est GFR ( Amer) > 60 Est GFR (Non-Af Amer) 50 L BUN/Creatinine Ratio 21 Glucose 108 H POC Glucose 111 H Calculated Osmolality 286 Lactic Acid Calcium 8.6 Venous Ioniz Calcium Phosphorus Magnesium Iron % Saturation Transferrin Ferritin Total Bilirubin 0.4 AST 14 ALT 7 Alkaline Phosphatase 105 H Ammonia Lactate Dehydrogenase 113 L Troponin I B-Natriuretic Peptide Serum Total Protein 6.2 L Albumin 2.4 L Globulin 3.8 H Albumin/Globulin Ratio 0.6 L Vitamin B12 Folate Urine Color Urine Clarity Urine pH Ur Specific Brooks Urine Protein Urine Glucose (UA) Urine Ketones Urine Blood Urine Nitrite Urine Bilirubin Urine Urobilinogen Ur Leukocyte Esterase Urine Microscopic RBC Urine Microscopic WBC Ur Squamous Epith Cells Urine Bacteria Hyaline Casts Ur Culture Indicated? Peritoneal Appearance Peritoneal Volume Peritoneal RBC Periton Tot Nuc Cells Periton Neutrophils Periton Band Neuts Peritoneal Eosinophils Peritoneal Basophils Periton Lymphocytes % Periton Monocytes % Periton Other Cells % Peritoneal Tot Protein Peritoneal LDH Peritoneal Glucose Peritoneal Amylase Stool Occult Bld Scrn Blood Type Antibody Screen Crossmatch 03/01/18 02/28/18 02/28/18 05:21 18:35 16:56 WBC 7.9 RBC 2.59 L Hgb 7.1 L Hct 22.2 L MCV 85.7 MCH 27.4 L MCHC 32.0 RDW 14.9 H Plt Count 497 H MPV 9.8 Immature Gran % 0.8 Seg Neutrophils % 79.1 Lymphocytes % 7.5 Monocytes % 11.2 Eosinophils % 1.3 Basophils % 0.1 Neutrophils # 6.2 Lymphocytes # 0.6 Monocytes # 0.9 Eosinophils # 0.1 Basophils # 0.0 PT INR Sample Site ABG pH ABG pCO2 ABG pO2 ABG HCO3 ABG Total CO2 ABG O2 Saturation ABG Base Excess Fabián Test Respiration Rate O2 Delivery Device Blood Gas Modality Inspired O2 Tidal Volume PEEP Sodium Potassium Chloride Carbon Dioxide BUN Creatinine Est GFR ( Amer) Est GFR (Non-Af Amer) BUN/Creatinine Ratio Glucose POC Glucose 140 H Calculated Osmolality Lactic Acid Calcium Venous Ioniz Calcium Phosphorus Magnesium Iron % Saturation Transferrin Ferritin Total Bilirubin AST ALT Alkaline Phosphatase Ammonia Lactate Dehydrogenase Troponin I B-Natriuretic Peptide Serum Total Protein Albumin 2.7 L Globulin Albumin/Globulin Ratio Vitamin B12 Folate Urine Color Urine Clarity Urine pH Ur Specific Brooks Urine Protein Urine Glucose (UA) Urine Ketones Urine Blood Urine Nitrite Urine Bilirubin Urine Urobilinogen Ur Leukocyte Esterase Urine Microscopic RBC Urine Microscopic WBC Ur Squamous Epith Cells Urine Bacteria Hyaline Casts Ur Culture Indicated? Peritoneal Appearance Peritoneal Volume Peritoneal RBC Periton Tot Nuc Cells Periton Neutrophils Periton Band Neuts Peritoneal Eosinophils Peritoneal Basophils Periton Lymphocytes % Periton Monocytes % Periton Other Cells % Peritoneal Tot Protein Peritoneal LDH Peritoneal Glucose Peritoneal Amylase Stool Occult Bld Scrn Blood Type Antibody Screen Crossmatch 02/28/18 02/28/18 02/28/18 15:59 15:59 13:36 WBC RBC Hgb Hct MCV MCH MCHC RDW Plt Count MPV Immature Gran % Seg Neutrophils % Lymphocytes % Monocytes % Eosinophils % Basophils % Neutrophils # Lymphocytes # Monocytes # Eosinophils # Basophils # PT INR Sample Site ABG pH ABG pCO2 ABG pO2 ABG HCO3 ABG Total CO2 ABG O2 Saturation ABG Base Excess Fabián Test Respiration Rate O2 Delivery Device Blood Gas Modality Inspired O2 Tidal Volume PEEP Sodium Potassium Chloride Carbon Dioxide BUN Creatinine Est GFR ( Amer) Est GFR (Non-Af Amer) BUN/Creatinine Ratio Glucose POC Glucose Calculated Osmolality Lactic Acid Calcium Venous Ioniz Calcium Phosphorus Magnesium Iron % Saturation Transferrin Ferritin Total Bilirubin AST ALT Alkaline Phosphatase Ammonia Lactate Dehydrogenase Troponin I B-Natriuretic Peptide Serum Total Protein Albumin Globulin Albumin/Globulin Ratio Vitamin B12 Folate Urine Color Urine Clarity Urine pH Ur Specific Brooks Urine Protein Urine Glucose (UA) Urine Ketones Urine Blood Urine Nitrite Urine Bilirubin Urine Urobilinogen Ur Leukocyte Esterase Urine Microscopic RBC Urine Microscopic WBC Ur Squamous Epith Cells Urine Bacteria Hyaline Casts Ur Culture Indicated? Peritoneal Appearance CLOUDY Peritoneal Volume 53.0 Peritoneal RBC 0.002 Periton Tot Nuc Cells 6653 H Periton Neutrophils 90.0 Periton Band Neuts Test Not Performed Peritoneal Eosinophils Test Not Performed Peritoneal Basophils Test Not Performed Periton Lymphocytes % 8.0 Periton Monocytes % 2.0 Periton Other Cells % Test Not Performed Peritoneal Tot Protein 4.3 Peritoneal LDH 128 Peritoneal Glucose 113 Peritoneal Amylase < 10 Stool Occult Bld Scrn Positive A Blood Type Antibody Screen Crossmatch 02/28/18 02/28/18 02/28/18 13:29 13:19 13:19 WBC RBC Hgb Hct MCV MCH MCHC RDW Plt Count MPV Immature Gran % Seg Neutrophils % Lymphocytes % Monocytes % Eosinophils % Basophils % Neutrophils # Lymphocytes # Monocytes # Eosinophils # Basophils # PT INR Sample Site ABG pH ABG pCO2 ABG pO2 ABG HCO3 ABG Total CO2 ABG O2 Saturation ABG Base Excess Fabián Test Respiration Rate O2 Delivery Device Blood Gas Modality Inspired O2 Tidal Volume PEEP Sodium Potassium Chloride Carbon Dioxide BUN Creatinine Est GFR ( Amer) Est GFR (Non-Af Amer) BUN/Creatinine Ratio Glucose POC Glucose Calculated Osmolality Lactic Acid Calcium Venous Ioniz Calcium Phosphorus Magnesium Iron % Saturation Transferrin Ferritin Total Bilirubin AST ALT Alkaline Phosphatase Ammonia < 10 L Lactate Dehydrogenase Troponin I B-Natriuretic Peptide 145 H Serum Total Protein Albumin Globulin Albumin/Globulin Ratio Vitamin B12 Folate Urine Color Yellow Urine Clarity Cloudy A Urine pH 5.5 Ur Specific Brooks > 1.030 H Urine Protein 30 H Urine Glucose (UA) Normal Urine Ketones Trace H Urine Blood Negative Urine Nitrite Positive A Urine Bilirubin Negative Urine Urobilinogen Normal Ur Leukocyte Esterase Moderate H Urine Microscopic RBC 0-3 Urine Microscopic WBC 5-15 H Ur Squamous Epith Cells Few Urine Bacteria Many H Hyaline Casts Few Ur Culture Indicated? YES A Peritoneal Appearance Peritoneal Volume Peritoneal RBC Periton Tot Nuc Cells Periton Neutrophils Periton Band Neuts Peritoneal Eosinophils Peritoneal Basophils Periton Lymphocytes % Periton Monocytes % Periton Other Cells % Peritoneal Tot Protein Peritoneal LDH Peritoneal Glucose Peritoneal Amylase Stool Occult Bld Scrn Blood Type Antibody Screen Crossmatch 02/28/18 02/28/18 02/28/18 13:19 13:19 13:11 WBC RBC Hgb Hct MCV MCH MCHC RDW Plt Count MPV Immature Gran % Seg Neutrophils % Lymphocytes % Monocytes % Eosinophils % Basophils % Neutrophils # Lymphocytes # Monocytes # Eosinophils # Basophils # PT 15.9 H INR 1.4 Sample Site ABG pH ABG pCO2 ABG pO2 ABG HCO3 ABG Total CO2 ABG O2 Saturation ABG Base Excess Fabián Test Respiration Rate O2 Delivery Device Blood Gas Modality Inspired O2 Tidal Volume PEEP Sodium Potassium Chloride Carbon Dioxide BUN Creatinine Est GFR ( Amer) Est GFR (Non-Af Amer) BUN/Creatinine Ratio Glucose POC Glucose Calculated Osmolality Lactic Acid 0.5 Calcium Venous Ioniz Calcium Phosphorus Magnesium Iron % Saturation Transferrin Ferritin Total Bilirubin AST ALT Alkaline Phosphatase Ammonia Lactate Dehydrogenase Troponin I B-Natriuretic Peptide Serum Total Protein Albumin Globulin Albumin/Globulin Ratio Vitamin B12 Folate Urine Color Urine Clarity Urine pH Ur Specific Brooks Urine Protein Urine Glucose (UA) Urine Ketones Urine Blood Urine Nitrite Urine Bilirubin Urine Urobilinogen Ur Leukocyte Esterase Urine Microscopic RBC Urine Microscopic WBC Ur Squamous Epith Cells Urine Bacteria Hyaline Casts Ur Culture Indicated? Peritoneal Appearance Peritoneal Volume Peritoneal RBC Periton Tot Nuc Cells Periton Neutrophils Periton Band Neuts Peritoneal Eosinophils Peritoneal Basophils Periton Lymphocytes % Periton Monocytes % Periton Other Cells % Peritoneal Tot Protein Peritoneal LDH Peritoneal Glucose Peritoneal Amylase Stool Occult Bld Scrn Blood Type O POSITIVE Antibody Screen NEGATIVE Crossmatch See Detail 02/28/18 02/28/18 11:22 11:22 WBC 12.4 H RBC 2.78 L Hgb 7.6 L Hct 24.1 L MCV 86.7 MCH 27.3 L MCHC 31.5 L RDW 14.6 H Plt Count 564 H MPV 9.6 Immature Gran % 0.6 Seg Neutrophils % 86.6 Lymphocytes % 4.2 Monocytes % 8.2 Eosinophils % 0.2 Basophils % 0.2 Neutrophils # 10.8 H Lymphocytes # 0.5 L Monocytes # 1.0 Eosinophils # 0.0 Basophils # 0.0 PT INR Sample Site ABG pH ABG pCO2 ABG pO2 ABG HCO3 ABG Total CO2 ABG O2 Saturation ABG Base Excess Fabián Test Respiration Rate O2 Delivery Device Blood Gas Modality Inspired O2 Tidal Volume PEEP Sodium 129 L Potassium 3.6 Chloride 94 L Carbon Dioxide 23 BUN 31 H Creatinine 1.47 H Est GFR ( Amer) 42 L Est GFR (Non-Af Amer) 35 L BUN/Creatinine Ratio 21 Glucose 176 H POC Glucose Calculated Osmolality 279 L Lactic Acid Calcium 9.1 Venous Ioniz Calcium Phosphorus Magnesium Iron % Saturation Transferrin Ferritin Total Bilirubin 0.5 AST 18 ALT 10 Alkaline Phosphatase 135 H Ammonia Lactate Dehydrogenase Troponin I 0.03 B-Natriuretic Peptide Serum Total Protein 7.6 Albumin 2.9 L Globulin 4.7 H Albumin/Globulin Ratio 0.6 L Vitamin B12 Folate Urine Color Urine Clarity Urine pH Ur Specific Brooks Urine Protein Urine Glucose (UA) Urine Ketones Urine Blood Urine Nitrite Urine Bilirubin Urine Urobilinogen Ur Leukocyte Esterase Urine Microscopic RBC Urine Microscopic WBC Ur Squamous Epith Cells Urine Bacteria Hyaline Casts Ur Culture Indicated? Peritoneal Appearance Peritoneal Volume Peritoneal RBC Periton Tot Nuc Cells Periton Neutrophils Periton Band Neuts Peritoneal Eosinophils Peritoneal Basophils Periton Lymphocytes % Periton Monocytes % Periton Other Cells % Peritoneal Tot Protein Peritoneal LDH Peritoneal Glucose Peritoneal Amylase Stool Occult Bld Scrn Blood Type Antibody Screen Crossmatch - Attending Attestation I have seen and examined Ms. Cunningham and agree with his claire's assessment. She is currently intubated and unable to provide further history. Her is unable to provide history as well at this time. Her history, labs and imaging is reviewed in the medical record. I have personally reviewed her CT of the abdomen and pelvis. 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 A lesion in the abdomen has been biopsied and pathology is pending. Given her other comorbid medical conditions at this juncture and lack of pathology, we will defer further discussion or evaluation pending improvement/resolution of her cardiopulmonary issues as well as interpretation of her pathology. Inpatient Charges Provider: Dr. Tamar Ding Consult - Inpatient Medicare Only: [id number]
[2018-03-02] MEDS ORDERED: Perflutren Lipid Microsphere 1.3 ML in 0.9 % Sodium Chloride 8.7 ML IVP ONE (17:35)
[2018-03-02] MEDS: Famotidine 20 MG/2 ML VIAL IVP SCH (18:09)
[2018-03-02] MEDS: Insulin LISPRO 300 UNITS/3 ML VIAL SQ SCH ×2 (18:09→23:14)
[2018-03-02] MEDS: Chlorhexidine Rinse 15 ML MOUTHWASH MM SCH (19:55)
[2018-03-02] MEDS: traZODone 50 MG TABLET PO SCH (19:56)
[2018-03-02] MEDS ORDERED: 0.9 % Sodium Chloride 1,000 ML IV ONE (21:03)
[2018-03-02] MEDS ORDERED: 0.9 % Sodium Chloride 1,000 ML ONE (21:09)
[2018-03-02] MEDS ORDERED: Albumin 25% 25gram/100mL 25 GM/100 ML IV.SOLN IVPB ONE (21:53)
--- NOTE | 2018-03-02 23:02 | Procedure Note ---
Date of procedure: 03/02/18 Pre-op diagnosis: hypotension Post-op diagnosis: same Procedure: Central Venous Catheter (CVC, Central Line) Placement Date: 03/02/18 Time: 22:25 Indication: Hemodynamic monitoring/Intravenous access Resident: Jared Simpson Attending: Natanael Ray The patient was placed in a dependent position appropriate for central line placement based on the vein to be cannulated. The patients right neck was prepped and draped in sterile fashion. 1% Lidocaine was used to anesthetize the surrounding skin area. A triple lumen Cordis catheter was introduced into the the internal jugular using the Seldinger technique and under ultrasound guidance. The catheter was threaded smoothly over the guide wire and appropriate blood return was obtained. Each lumen of the catheter was evacuated of air and flushed with sterile saline. The catheter was then sutured in place to the skin and a sterile dressing applied. Perfusion to the extremity distal to the point of catheter insertion was checked and found to be adequate. Attending was present for the entire procedure. Estimated Blood Loss: 5 cc The patient tolerated the procedure well and there were no complications. Anesthesia: local Was there an staffing assistant present: Yes Cold Patcher: Anali Lopez Estimated blood loss (cc): 5 Specimen: none Pathology: none sent Condition: stable Disposition: ICU
[2018-03-03] MEDS ORDERED: *HR* Metoprolol 5 MG/5 ML VIAL IVP SCH
[2018-03-03] MEDS: Artificial Tears SOLN 15 ML BOTTLE BOTH EYES SCH ×3 (03:00→12:42)
[2018-03-03 03:51] LABS: Basophils % 0.2 %; Hematocrit 27.4 % (35.3-44.9); Hemoglobin 8.8 g/dL (11.5-15.4); Immature Granulocytes % 1.9 % (0-4); Lymphocytes # 0.9 K/mcL (0.6-4.6); Lymphocytes % 7.2 %; Mean Corpuscular HGB Conc 32.1 g/dL (31.6-35.5); Mean Corpuscular Hemoglobin 27.8 pg (28.0-33.3); Mean Corpuscular Volume 86.4 fL (83.0-100.0); Mean Platelet Volume 9.5 fL (9.4-12.4); Monocytes # 0.8 K/mcL (0.0-1.3); Monocytes % 5.7 %; Neutrophils # 11.1 K/mcL (1.6-8.9); Platelet Count 452 K/mcL (140-400); Red Blood Count 3.17 M/mcL (3.82-4.97); Red Cell Distribution Width 15.1 % (11.5-14.5)
[2018-03-03 03:55] LABS: VBG Ionized Calcium 1.18 mmol/L (1.15-1.35)
[2018-03-03 04:09] LABS: Albumin 2.5 g/dL (3.5-5.7); Albumin/Globulin Ratio 0.7 (1.1-2.2); Bilirubin,Total 0.5 mg/dL (0.3-1.0); Calcium 8.4 mg/dL (8.6-10.3); Globulin 3.8 g/dL (2.4-3.5); Phosphorous 3.6 mg/dL (2.7-4.5); Potassium 3.9 mEq/L (3.5-5.1); Total Protein 6.3 g/dL (6.4-8.9)
[2018-03-03 04:48] LABS: ABG Base Excess -5 mEq/L (-2 to 3); ABG HCO3 19 mEq/L (21-27); ABG Oxygen Saturation 99 % (95-98); ABG PCO2 28 mmHg (35-45); ABG PH 7.43 pH Units (7.32-7.45); ABG PO2 148 mmHg (85-104); ABG TCO2 19 mEq/L (20-26); Blood Gas Modality PRVC; Blood Gas PEEP 5 cm H2O; Blood Gas Respiration Rate 16; Blood Gas VT 450 cc
[2018-03-03] MEDS: Famotidine 20 MG/2 ML VIAL IVP SCH (05:56)
[2018-03-03] MEDS: Insulin LISPRO 300 UNITS/3 ML VIAL SQ SCH ×4 (05:59→23:55)
[2018-03-03] MEDS: cefTRIAXone 1,000 MG in Water for inj. (sterile) 20 ML 10 ML IVP SCH (08:03)
[2018-03-03] MEDS: Chlorhexidine Rinse 15 ML MOUTHWASH MM SCH (08:05)
[2018-03-03] MEDS ORDERED: Metoprolol XL (24 HR) Succ 50 MG TAB.ER.24H PO SCH (09:00)
--- NOTE | 2018-03-03 09:24 | Pulmonology Progress Note ---
<JhoanaDerianGoran W - Last Filed: 03/03/18 11:17> Date of Encounter: 03/03/18 Time of Encounter: 09:20 Assessment and Plan (1) Respiratory failure with hypoxia Current Visit: Yes Status: Acute Etiology unclear at this time Became hypoxic after extubation yesterday after cystoscopy with stone removal and stent placement patient needed to be reintubated Patient was extubated today. Doing well. sat 95% on 2L nasal cannula continue to monitor Qualifiers: Chronicity: acute Qualified Code(s): J96.01 - Acute respiratory failure with hypoxia (2) Peritoneal carcinomatosis Current Visit: Yes Status: Suspected CT abdomen/pelvis reveals mesenteric nodularity as well as a 2.2 cm nodular mesenteric mass with several smaller nodular masses with small volume ascites. She underwent core needle biopsy of omental caking and paracentesis (with removal of 2750 mL of straw-colored ascites) on 03/01/2018. Final pathology is pending Oncology consulted appreciate recs further workup recommended pending cardio/pulm stability palliative consulted appreciate recs (3) Anemia Current Visit: Yes Status: Acute Normocytic, hypochromic anemia on presentation with hgb 7.6 Stool occult blood positive 02/28 GI consultation with plan for EGD/Colonoscopy per GI awaiting colonoscopy and EGD until patietnt stabilizes no indication for urgent colonoscopy as hemoglobin has increased to 8.8 of note cardio recommends cath however, would prefer GI to scope before incase patient needs anticoagulation and there is potential of GI bleed. heme/onc consulted appreciate recs Qualifiers: Anemia type: unspecified type Qualified Code(s): D64.9 - Anemia, unspecified (4) UTI (urinary tract infection) Current Visit: Yes Status: Acute E. coli cultured stone removed by urology continue Rocephin day 4 Qualifiers: Urinary tract infection type: acute cystitis Hematuria presence: without hematuria Qualified Code(s): N30.00 - Acute cystitis without hematuria (5) CAD (coronary artery disease) Current Visit: Yes Status: Chronic History of CAGB in 2011 cardio consulted appreciate recs Cardiology recommends cath, however, will have discussion with patient and family to determine if patient would. Qualifiers: Coronary Disease-Associated Artery/Lesion type: [place] artery [place] vs. transplanted heart: [place] heart Associated angina: without angina Qualified Code(s): I25.10 - Atherosclerotic heart disease of [place] coronary artery without angina pectoris (6) Afib Current Visit: Yes Status: Acute ECHO found EF of 25-30% extensive coronary artery disease with some ischemic changes in the EKG troponins elevated concern for NSTEMI now she has supraventricular arrhythmias which degenerates to atrial fibrillation lopressor was given in addition to LASIX one time dose however patient developed hypotension and both were removed as well as fentanyl Hypotensive etiology unknown questioning sedative vs lopressor and/or lasix Patient is currently extubated and no longer on sedatives and lopressor and lasix are being held Qualifiers: Atrial fibrillation type: unspecified Qualified Code(s): I48.91 - Unspecified atrial fibrillation (7) CKD (chronic kidney disease) stage 3, GFR 30-59 ml/min Current Visit: Yes Status: Chronic chronic creatinine 1.1 (8) Cirrhosis of liver Current Visit: Yes Status: Chronic Based on CT scan findings patient has cirrhosis of the liver. Will treat supportively. Hepatitis viral screening negative Qualifiers: Hepatic cirrhosis type: unspecified hepatic cirrhosis Ascites presence: with ascites Qualified Code(s): K74.60 - Unspecified cirrhosis of liver; R18.8 - Other ascites (9) Diabetes mellitus Current Visit: Yes Status: Chronic chronic currently npo continue to monitor SSI Qualifiers: Diabetes mellitus type: type 2 Diabetes mellitus retirement insulin use: unspecified retirement insulin use status Diabetes mellitus complication status: with kidney complications Diabetes mellitus complication detail: with chronic kidney disease Chronic kidney disease stage: stage 3 (moderate) Qualified Code(s): E11.22 - Type 2 diabetes mellitus with diabetic chronic kidney disease; N18.3 - Chronic kidney disease, stage 3 (moderate) (10) Essential hypertension Current Visit: Yes Status: Chronic on metoprolol at home (11) DVT prophylaxis Current Visit: Yes Status: Acute Heparin sq Subjective Principal diagnosis: hypoxic respiratory failure Interval history: Patient was a hospital patient who was admitted for peritoneal carcinomatosis with abdominal pain. The patient also had a UTI with 8mm distal ureteral stone without hydronephrosis. Patient was taken the O.R. for a stone removal with stent placement. Upon extubation the patient developed SVT HR 161 then was given 6mg adenosine the patient converted to sinus rhythm. Then Vtach developed but the patient converted on her own. SaO2 was 88% Amiodarone 150 mg was given. Patient was then intubated. Today the patient has improved and was extubated this AM. ECHO findings concerning for stress induced cardiomyopathy. cardiology consulted. Objective PUL Vital signs: Last Vital Signs Temp 98.1 F 03/03/18 07:40 Pulse 90 03/03/18 09:00 Resp 18 03/03/18 09:00 BP 126/81 03/03/18 09:00 Pulse Ox 95 03/03/18 09:00 General appearance: no acute distress Eyes: nonicteric Neck: supple Effort: mildly labored Auscultation: bilateral: rales Cardiovascular: regular rate and rhythm Gastrointestinal: normoactive bowel sounds, soft, non-tender Integumentary: normal Extremities: edema (1+) mood appropriate, affect normal Ventilator Settings Ventilator Settings: Ventilator Settings, Last 8 Hours Ventilator Tidal Volume 450 Setting Ventilator Tidal Volume 450 Setting Ventilator Tidal Volume 452 Setting Ventilator Tidal Volume 450 Setting Ventilator Tidal Volume 450 Setting Ventilator Tidal Volume 450 Setting Ventilator Tidal Volume 450 Setting Ventilator Respiratory Rate 16 Setting Ventilator Respiratory Rate 16 Setting Ventilator Respiratory Rate 16 Setting Ventilator Respiratory Rate 16 Setting Ventilator Respiratory Rate 16 Setting Ventilator Respiratory Rate 16 Setting Ventilator Respiratory Rate 16 Setting Actual Respiratory Rate 14 Actual Respiratory Rate 17 Actual Respiratory Rate 16 Actual Respiratory Rate 16 Actual Respiratory Rate 21 Actual Respiratory Rate 16 Actual Respiratory Rate 16 Actual Respiratory Rate 16 Positive End Expiratory 5 Pressure Positive End Expiratory 5 Pressure Positive End Expiratory 5 Pressure Positive End Expiratory 5 Pressure Positive End Expiratory 5 Pressure Positive End Expiratory 5 Pressure Positive End Expiratory 5 Pressure Positive End Expiratory 5 Pressure Positive End Expiratory 5 Pressure Peak Inspiratory Airway 40 Pressure Peak Inspiratory Airway 10 Pressure Peak Inspiratory Airway 22 Pressure Peak Inspiratory Airway 22 Pressure Peak Inspiratory Airway 25 Pressure Peak Inspiratory Airway 21 Pressure Peak Inspiratory Airway 22 Pressure Peak Inspiratory Airway 23 Pressure Results - Laboratory Findings CBC and BMP: 03/03/18 03:35 03/03/18 03:35 ABG ABG pH 7.43 pH Units (7.32-7.45) 03/03/18 04:45 ABG pCO2 28 mmHg (35-45) L 03/03/18 04:45 ABG pO2 148 mmHg (85-104) H 03/03/18 04:45 ABG O2 Saturation 99 % (95-98) H 03/03/18 04:45 PT/INR, D-dimer PT 15.9 Seconds (9.4-12.1) H 02/28/18 13:19 Abnormal lab findings: Abnormal lab results WBC 13.1 K/mcL (4.3-11.1) H D 03/03/18 03:35 RBC 3.17 M/mcL (3.82-4.97) L 03/03/18 03:35 Hgb 8.8 g/dL (11.5-15.4) L 03/03/18 03:35 Hct 27.4 % (35.3-44.9) L 03/03/18 03:35 MCH 27.8 pg (28.0-33.3) L 03/03/18 03:35 RDW 15.1 % (11.5-14.5) H 03/03/18 03:35 Plt Count 452 K/mcL (140-400) H 03/03/18 03:35 Neutrophils # 11.1 K/mcL (1.6-8.9) H 03/03/18 03:35 PT 15.9 Seconds (9.4-12.1) H 02/28/18 13:19 ABG pCO2 28 mmHg (35-45) L 03/03/18 04:45 ABG pO2 148 mmHg (85-104) H 03/03/18 04:45 ABG HCO3 19 mEq/L (21-27) L 03/03/18 04:45 ABG Total CO2 19 mEq/L (20-26) L 03/03/18 04:45 ABG O2 Saturation 99 % (95-98) H 03/03/18 04:45 ABG Base Excess -5 mEq/L (-2 to 3) L 03/03/18 04:45 Sodium 134 mEq/L (136-145) L 03/03/18 03:35 Carbon Dioxide 19 mEq/L (23-29) L 03/03/18 03:35 Est GFR ( Amer) 59 (> 60) L 03/03/18 03:35 Est GFR (Non-Af Amer) 48 (> 60) L 03/03/18 03:35 Glucose 169 mg/dL (70-105) H 03/03/18 03:35 POC Glucose 158 mg/dL (70-99) H 03/03/18 05:59 Calcium 8.4 mg/dL (8.6-10.3) L 03/03/18 03:35 Magnesium 1.5 mg/dL (1.6-2.6) L 03/03/18 03:35 Iron < 10 mcg/dL (50-170) L 03/02/18 06:04 Transferrin 109 mg/dL (203-362) L 03/02/18 06:04 Ferritin 802 ng/mL (10-120) H 03/02/18 06:04 Ammonia < 10 mcmol/L (16-53) L 02/28/18 13:19 Lactate Dehydrogenase 113 Units/L (140-271) L 03/01/18 05:21 Troponin I 2.08 ng/mL (< 0.04) H* 03/03/18 01:15 B-Natriuretic Peptide 188 pg/mL (Less than 100) H 03/02/18 16:06 Serum Total Protein 6.3 g/dL (6.4-8.9) L 03/03/18 03:35 Albumin 2.5 g/dL (3.5-5.7) L 03/03/18 03:35 Globulin 3.8 g/dL (2.4-3.5) H 03/03/18 03:35 Albumin/Globulin Ratio 0.7 (1.1-2.2) L 03/03/18 03:35 Vitamin B12 > 1500 pg/mL (250-1100) H 03/02/18 06:04 Urine Clarity Cloudy (Clear) A 02/28/18 13:29 Ur Specific [place] > 1.030 (1.010-1.025) H 02/28/18 13:29 Urine Protein 30 mg/dL (Neg-Trace) H 02/28/18 13:29 Urine Ketones Trace mg/dL (Negative) H 02/28/18 13:29 Urine Nitrite Positive (Negative) A 02/28/18 13:29 Ur Leukocyte Esterase Moderate (Negative) H 02/28/18 13:29 Urine Microscopic WBC 5-15 per hpf (0-3) H 02/28/18 13:29 Urine Bacteria Many per hpf (None-Few) H 02/28/18 13:29 Ur Culture Indicated? YES (NO) A 02/28/18 13:29 Periton Tot Nuc Cells 6653 TNC/mcL (0-300) H 02/28/18 15:59 Stool Occult Bld Scrn Positive (Negative) A 02/28/18 13:36 - Microbiology Findings Microbiology Findings: Microbiology, Last 48 Hours 03/02/18 22:10 Blood Culture - Preliminary Peripheral Venipuncture Culture is incubating and being continuously monitored for growth. Final report to follow. 03/02/18 22:17 Blood Culture - Preliminary Peripheral Venipuncture Culture is incubating and being continuously monitored for growth. Final report to follow. 03/01/18 15:59 Body Fluid Culture - Preliminary Peritoneal Fluid 02/28/18 13:29 Urine Culture - Final Urine,Clean Catch Escherichia coli - Clinical Findings Intake & Output: Intake & Output 03/02/18 03/03/18 03/03/18 23:59 07:59 15:59 Intake Total 1625.1 / 1625.1 1100 / 1100 Output Total 125 / 125 200 / 200 Balance 1500.1 / 1500.1 900 / 900 Consult Discharge Plan - Plan Referrals: Grupo Purcell DO [Primary Care Provider] - <Sergei Chacon - Last Filed: 03/03/18 12:18> Objective PUL Vital signs: Last Vital Signs Temp 97.9 F 03/03/18 11:47 Pulse 93 03/03/18 11:00 Resp 18 03/03/18 11:00 BP 123/81 03/03/18 11:00 Pulse Ox 96 03/03/18 11:00 Ventilator Settings Ventilator Settings: Ventilator Settings, Last 8 Hours Ventilator Tidal Volume 450 Setting Ventilator Tidal Volume 450 Setting Ventilator Tidal Volume 450 Setting Ventilator Tidal Volume 452 Setting Ventilator Respiratory Rate 16 Setting Ventilator Respiratory Rate 16 Setting Ventilator Respiratory Rate 16 Setting Actual Respiratory Rate 14 Actual Respiratory Rate 19 Actual Respiratory Rate 17 Actual Respiratory Rate 16 Actual Respiratory Rate 16 Positive End Expiratory 5 Pressure Positive End Expiratory 5 Pressure Positive End Expiratory 5 Pressure Positive End Expiratory 5 Pressure Positive End Expiratory 5 Pressure Positive End Expiratory 5 Pressure Peak Inspiratory Airway 40 Pressure Peak Inspiratory Airway 10 Pressure Peak Inspiratory Airway 10 Pressure Peak Inspiratory Airway 22 Pressure Peak Inspiratory Airway 22 Pressure Results - Laboratory Findings CBC and BMP: 03/03/18 03:35 03/03/18 03:35 ABG ABG pH 7.43 pH Units (7.32-7.45) 03/03/18 04:45 ABG pCO2 28 mmHg (35-45) L 03/03/18 04:45 ABG pO2 148 mmHg (85-104) H 03/03/18 04:45 ABG O2 Saturation 99 % (95-98) H 03/03/18 04:45 PT/INR, D-dimer PT 15.9 Seconds (9.4-12.1) H 02/28/18 13:19 Abnormal lab findings: Abnormal lab results WBC 13.1 K/mcL (4.3-11.1) H D 03/03/18 03:35 RBC 3.17 M/mcL (3.82-4.97) L 03/03/18 03:35 Hgb 8.8 g/dL (11.5-15.4) L 03/03/18 03:35 Hct 27.4 % (35.3-44.9) L 03/03/18 03:35 MCH 27.8 pg (28.0-33.3) L 03/03/18 03:35 RDW 15.1 % (11.5-14.5) H 03/03/18 03:35 Plt Count 452 K/mcL (140-400) H 03/03/18 03:35 Neutrophils # 11.1 K/mcL (1.6-8.9) H 03/03/18 03:35 PT 15.9 Seconds (9.4-12.1) H 02/28/18 13:19 ABG pCO2 28 mmHg (35-45) L 03/03/18 04:45 ABG pO2 148 mmHg (85-104) H 03/03/18 04:45 ABG HCO3 19 mEq/L (21-27) L 03/03/18 04:45 ABG Total CO2 19 mEq/L (20-26) L 03/03/18 04:45 ABG O2 Saturation 99 % (95-98) H 03/03/18 04:45 ABG Base Excess -5 mEq/L (-2 to 3) L 03/03/18 04:45 Sodium 134 mEq/L (136-145) L 03/03/18 03:35 Carbon Dioxide 19 mEq/L (23-29) L 03/03/18 03:35 Est GFR ( Amer) 59 (> 60) L 03/03/18 03:35 Est GFR (Non-Af Amer) 48 (> 60) L 03/03/18 03:35 Glucose 169 mg/dL (70-105) H 03/03/18 03:35 POC Glucose 143 mg/dL (70-99) H 03/03/18 11:20 Calcium 8.4 mg/dL (8.6-10.3) L 03/03/18 03:35 Magnesium 1.5 mg/dL (1.6-2.6) L 03/03/18 03:35 Iron < 10 mcg/dL (50-170) L 03/02/18 06:04 Transferrin 109 mg/dL (203-362) L 03/02/18 06:04 Ferritin 802 ng/mL (10-120) H 03/02/18 06:04 Ammonia < 10 mcmol/L (16-53) L 02/28/18 13:19 Lactate Dehydrogenase 113 Units/L (140-271) L 03/01/18 05:21 Troponin I 2.08 ng/mL (< 0.04) H* 03/03/18 01:15 B-Natriuretic Peptide 188 pg/mL (Less than 100) H 03/02/18 16:06 Serum Total Protein 6.3 g/dL (6.4-8.9) L 03/03/18 03:35 Albumin 2.5 g/dL (3.5-5.7) L 03/03/18 03:35 Globulin 3.8 g/dL (2.4-3.5) H 03/03/18 03:35 Albumin/Globulin Ratio 0.7 (1.1-2.2) L 03/03/18 03:35 Vitamin B12 > 1500 pg/mL (250-1100) H 03/02/18 06:04 Urine Clarity Cloudy (Clear) A 02/28/18 13:29 Ur Specific [place] > 1.030 (1.010-1.025) H 02/28/18 13:29 Urine Protein 30 mg/dL (Neg-Trace) H 02/28/18 13:29 Urine Ketones Trace mg/dL (Negative) H 02/28/18 13:29 Urine Nitrite Positive (Negative) A 02/28/18 13:29 Ur Leukocyte Esterase Moderate (Negative) H 02/28/18 13:29 Urine Microscopic WBC 5-15 per hpf (0-3) H 02/28/18 13:29 Urine Bacteria Many per hpf (None-Few) H 02/28/18 13:29 Ur Culture Indicated? YES (NO) A 02/28/18 13:29 Periton Tot Nuc Cells 6653 TNC/mcL (0-300) H 02/28/18 15:59 Stool Occult Bld Scrn Positive (Negative) A 02/28/18 13:36 - Microbiology Findings Microbiology Findings: Microbiology, Last 48 Hours 03/02/18 22:10 Blood Culture - Preliminary Peripheral Venipuncture Culture is incubating and being continuously monitored for growth. Final report to follow. 03/02/18 22:17 Blood Culture - Preliminary Peripheral Venipuncture Culture is incubating and being continuously monito red for growth. Final report to follow. 03/01/18 15:59 Body Fluid Culture - Preliminary Peritoneal Fluid 02/28/18 13:29 Urine Culture - Final Urine,Clean Catch Escherichia coli - Clinical Findings Intake & Output: Intake & Output 03/02/18 03/03/18 03/03/18 23:59 07:59 15:59 Intake Total 1625.1 / 1625.1 1100 / 1100 Output Total 125 / 125 200 / 200 100 / 100 Balance 1500.1 / 1500.1 900 / 900 -90 / -90 - Attending Attestation - Attending Attestation I saw and evaluated this patient and my medical decision-making was reviewed with the Resident Physician. I agree with the documented findings, disposition and treatment plan as described except to the extent set forth below. We independently had [id number] contact with the patient I spent 32 minutes of Critical Care time with this patient. It involved decision making of high complexity to assess, manipulate, and support vital organ system failure and/or to prevent further life threatening deterioration of the patient's condition. The time involved in the performance of separately reportable procedures was not counted toward critical care time. Patient seen and examined at bedside Labs, radiology, chart personally reviewed. Management was reviewed during multidisciplinary critical care rounds. CONTAINER FINISHER: Patient is conscious oriented following commands wants the endoracheal tube out . Pulm: Patient has acceptable oxygenation and ventilation the most likely decompensation acute decline in systolic function. Cards: Patient has extensive coronary artery disease with some ischemic changes in the EKG trops were elevated with ECHO shows systolic heart failure patient will need cardiac catheterization.Cardilogy consulted FEN-GI: Nothing by mouth for now heart cath will hold off endoscopy will need to look for malignancy in upper GI tract Renal: Labs and output reviewed to continue diuresis as tolerated , patient had obstructing right ureteral calculus supported by J stent. ID: Patient has UTI to continue ceftriaxone Heme/Onc: Patient has peritoneal carcinomatosis had omental biopsy waiting for final biopsy result had some ascitic fluid sampled pending cytology Endo: Glucose Monitored Integ/MSK: Skin Care per routine ICU Nursing Protocol to prevent ulcers. Lines: All lines examined without evidence of infection : Dispo: Critically ill CODE:Full Code
[2018-03-03] MEDS ORDERED: Acetaminophen 325 MG TABLET PO PRN (09:40)
[2018-03-03] MEDS: Cyanocobalamin (B-12) 1,000 MCG TABLET PO SCH (09:43)
--- NOTE | 2018-03-03 09:45 | Gastroenterology Progress Note ---
Date of Encounter: 03/03/18 Time of Encounter: 09:42 - Assessment and plan (1) Anemia Current Visit: Yes Status: Acute Assessment and plan: Hgb on admission was 7.6 and today Hgb 8.8. Continue to monitor CBC and transfuse PRBC as needed. Had initially planned for upper and lower endoscopy, however yesterday after cystoscopy patient had respiratory distress requiring intubation. Patient is also noted to have a decreased EF and elevated troponins. Given these complicating medical factors we will defer upper and lower endoscopy until patient is more clinically stable and has cardiac evaluation as there is no indication for urgent endoscopy. This was discussed with the patient and the family and they are agreeable with this plan. Qualifiers: Anemia type: unspecified type Qualified Code(s): D64.9 - Anemia, unspecified (2) Cirrhosis of liver Current Visit: Yes Status: Chronic Assessment and plan: She saw Dr. Meraz on 02/25 and started workup for cirrhosis. Hepatitis profile was negative. ROXY, ANCA, AMA were negative. EGD deferred as above. On admission MELD-Na 21 and Child-Cruz class B. AFP Pending. Lifestyle Changes: 1. Total abstinence from alcohol including social drinking. 2. No smoking. 3. Gradual loss of weight. 4. Drink at least 3 cups of coffee due to its antioxidant effects in the liver, it reduces risk of HCC and advance fibrosis. 5. If needed, use less than 2 g/day of Tylenol (in divided doses). 6. Vaccination for Hep A, B, Pneumococcus if not already received and yearly influenza vaccination by PCP. 7. Avoid NSAIDS as can cause kidney damage. 8. Avoid benzodiazepines and other sedatives such as anti-histamines, narcotics etc. as can cause encephalopathy or confusion. 9. Take a late carbohydrate meal supplement as it reduces glucose production from protein breakdown and thus improves nutrition. 10. In cirrhosis, statins are safe to use and also improve portal hypertension and decrease risk of HCC. 11. Screening: o Hepatocellular cancer screening: [place] of liver and AFP every 6 months Qualifiers: Hepatic cirrhosis type: unspecified hepatic cirrhosis Ascites presence: with ascites Qualified Code(s): K74.60 - Unspecified cirrhosis of liver; R18.8 - Other ascites - Time Spent With Patient Total time spent is greater than 50% in coordination of care (as documented) at patient's floor/unit and/or counseling patient: - Subjective Interval history: Patient seen and examined at bedside. Patient is awake alert and states she is feeling okay this morning. She reports mild abdominal bloating and discomfort. She states she is hungry and 1 some ice water. Denies nausea, vomiting, change in bowel habits. - Constitutional Vitals: Temp Pulse Resp BP Pulse Ox 98.1 F 90 18 126/81 95 03/03/18 07:40 03/03/18 09:00 03/03/18 09:00 03/03/18 09:00 03/03/18 09:00 General appearance: Present: cooperative, A&O X 3, no acute distress, answers questions appropriately - Respiratory Respiratory exam: Present: rales (mild, diffuse). Absent: respiratory distress, rhonchi, wheezes, tachypnea - Cardiovascular Cardiovascular exam: Present: RRR. Absent: gallop, rubs, systolic murmur - GI/Abdominal GI/Abdominal exam: Present: normal bowel sounds, soft. Absent: distended, tenderness Results - Labs CBC & Chem 7: 03/03/18 03:35 03/03/18 03:35 Labs: Last Result Calcium 8.4 mg/dL (8.6-10.3) L 03/03/18 03:35 Iron < 10 mcg/dL (50-170) L 03/02/18 06:04 % Saturation TNP 03/02/18 06:04 Transferrin 109 mg/dL (203-362) L 03/02/18 06:04 Ferritin 802 ng/mL (10-120) H 03/02/18 06:04 Troponin I 2.08 ng/mL (< 0.04) H* 03/03/18 01:15 Vitamin B12 > 1500 pg/mL (250-1100) H 03/02/18 06:04 Folate 10.0 ng/mL (3.0-16.0) 03/02/18 06:04 Peritoneal Appearance CLOUDY (Clear) 02/28/18 15:59 Peritoneal Volume 53.0 mL 02/28/18 15:59 Peritoneal RBC 0.002 M/mcL (0.000-0.002) 02/28/18 15:59 Periton Tot Nuc Cells 6653 TNC/mcL (0-300) H 02/28/18 15:59 Periton Band Neuts Test Not Performed 02/28/18 15:59 Periton Lymphocytes % 8.0 % 02/28/18 15:59 Periton Monocytes % 2.0 % 02/28/18 15:59 Periton Other Cells % Test Not Performed 02/28/18 15:59 Peritoneal Tot Protein 4.3 g/dL (No Ref Range) 02/28/18 15:59 Peritoneal LDH 128 Units/L (No Ref Range) 02/28/18 15:59 Peritoneal Glucose 113 mg/dL (No Ref Range) 02/28/18 15:59 Peritoneal Amylase < 10 Units/L (No Ref Range) 02/28/18 15:59 Entire Visit Hgb 8.8 g/dL (11.5-15.4) L 03/03/18 03:35 Hct 27.4 % (35.3-44.9) L 03/03/18 03:35 PT 15.9 Seconds (9.4-12.1) H 02/28/18 13:19 Ferritin 802 ng/mL (10-120) H 03/02/18 06:04 Total Bilirubin 0.5 mg/dL (0.3-1.0) 03/03/18 03:35 AST 37 Units/L (13-39) 03/03/18 03:35 ALT 11 Units/L (7-52) 03/03/18 03:35 Ammonia < 10 mcmol/L (16-53) L 02/28/18 13:19 Folate 10.0 ng/mL (3.0-16.0) 03/02/18 06:04 - ABG ABG results: ABG ABG pH 7.43 pH Units (7.32-7.45) 03/03/18 04:45 ABG pCO2 28 mmHg (35-45) L 03/03/18 04:45 ABG pO2 148 mmHg (85-104) H 03/03/18 04:45 ABG O2 Saturation 99 % (95-98) H 03/03/18 04:45 PT/INR, D-dimer PT 15.9 Seconds (9.4-12.1) H 02/28/18 13:19 - Impressions Impressions Retrograde Pyelogram 03/02/18 00:00 IMPRESSION: Intraprocedural fluoroscopic spot images as above. See separate procedure report for more information. D/ / Brien Tong / Brien Tong Interpreting Provider: Brien Tong Chest X-Ray 03/02/18 13:00 IMPRESSION: 1. Cardiomegaly with vascular congestion and interstitial infiltrates likely representing edema and congestive failure. 2. Endotracheal tube in satisfactory position. D/ / Hero Villafuerte MD / Hero Villafuerte MD Interpreting Provider: Hero Villafuerte MD Echocardiogram 03/02/18 15:25 Impressions: LVEF 20-25%. Segmental LV systolic dysfunction - mid and distal segments are severely hypokinetic with normal to hyperdynamic basal segmental function. 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 Recommend clinical correlation. Mildly dilated left ventricle. Indeterminate diastolic function. There is no LV thrombus. Definity echo contrast was used. Normal RV size with grossly normal function - not all wall segments are well visualized. Mild-moderate mitral regurgitation. Moderate tricuspid regurgitation. Mild pulmonic regurgitation. Chest X-Ray 03/02/18 22:56 IMPRESSION: Status post right jugular central venous catheter. No pneumothorax. Overall improved aeration lungs since the prior study earlier today. Bibasilar airspace disease, likely atelectasis. Pneumonia is not excluded, particularly in the left lower lobe. D/ / Norma Fowler Cha, MD / Norma Fowler Cha, MD Interpreting Provider: Norma Fowler Cha, MD Consult Discharge Plan - Plan Referrals: Grupo Purcell DO [Primary Care Provider] -
[2018-03-03] MEDS: Multivit/Ca/Min/Fe/FA 1 TAB TABLET PO SCH (09:54)
[2018-03-03] MEDS: OXYCODONE Oral CONC 10 MG/0.5 ML ORAL.SYG SL PRN ×2 (11:18→23:51)
[2018-03-03] MEDS ORDERED: *HR* Heparin 5,000 UNIT/ML VIAL IVP SCH (12:00)
--- NOTE | 2018-03-03 12:39 | Cardiology Consult Note ---
Date of Encounter: 03/03/18 (n) Time of Encounter: 12:31 Assessment and Plan (1) NSTEMI (non-ST elevated myocardial infarction) Current Visit: Yes Status: Acute Elevated troponins in the setting of exertional angina over the last year with significant drop in ejection fraction from normal to 20-25% benefits and alternatives of a LHC were discussed patient detail she agrees to proceed. Patient with recent GI bleed and downtrending hemoglobin. Discussed with GI planning to do colonoscopy and EGD once seen and cleared by cardiology. A diagnostic LHC will be obtained today for this reason and to define her anatomy and risk of CAD Discussion w patient/family: The assessment and plan as outlined above was discussed with the patient and/or family members who expressed understanding and agreement. All questions were answered. Thank you for involving us in the care of your patient. Please call with any questions. History of Present Illness Consult date: 03/03/18 Consult reason: NSTEMI Chief complaint: Resp Insufficiency History of present illness: Ms. Cunningham is a 77 year old female with history of multiple comorbidities including peritoneal carcinomatosis and iron deficiency anemia status post-uro logy procedure with respiratory insufficiency reintubated currently extubated. Patient describes exertional angina over the last few weeks and months lasting almost up to one year. She describes exertional angina during vacuuming where she would require multiple periods of rest. She has a history of coronary artery disease status post-GOMEZ to LAD and vein graft to obtuse marginal in 2011. Echocardiogram 2015 showed a preserved ejection fraction of 60% and at that time she had a non-ST elevation by cardiac infarction and chose medical management over invasive procedures. Patient today has a elevated troponin of 2.08 with an ejection fraction 25% and Takotsubo like pattern. Past Med Surg Social Fam HX - Past Medical History Medical history: coronary artery disease, diabetes, hyperlipidemia, hypertension Additional medical history: DIABETIC NEUROPATHY Psychiatric history: no psych history - Past Surgical History Surgical History: coronary bypass (CABG) - Social History Smoking Status: Never smoker Smokeless Tobacco Status: No Alcohol use: none Drug use: none - Family History Mother Living Status: Hx Family Cardiac Disorders: Yes (HTN) Hx Family Respiratory Disorders: No Hx Family Cancer: No Hx Family GI Disorders: No Hx Family Genitourinary Disorders: No Hx Family Endocrine Disorder: Yes Hx Family Musculoskeletal Disorders: No Hx Family Neuromuscular Disorders: No Hx Family Neurologic Disorders: No Hx Family HEENT Disorders: No Hx Family Autoimmune Disorders: No Hx Family Reproductive Disorders: No Hx Family Psychosocial Disorders: No Father Hx Family Cardiac Disorders: No Hx Family Respiratory Disorders: No Hx Family Cancer: Yes (mouth) Hx Family GI Disorders: No Hx Family Genitourinary Disorders: No Hx Family Endocrine Disorder: No Hx Family Musculoskeletal Disorders: No Hx Family Neuromuscular Disorders: No Hx Family Neurologic Disorders: No Hx Family HEENT Disorders: No Hx Family Autoimmune Disorders: No Hx Family Reproductive Disorders: No Hx Family Psychosocial Disorders: No Medications and Allergies Acetaminophen [Tylenol Arthritis] 650 mg PO TID PRN 02/28/18 [History] Aspirin [Adult Aspirin] 81 mg PO DAILY 02/28/18 [History] Atorvastatin [Lipitor] 40 mg PO HS 02/28/18 [History] Cyanocobalamin (Vitamin B-12) [Vitamin B-12] 1,000 mcg PO DAILY 02/28/18 [History] Ferrous Sulfate [Iron] 325 mg PO DAILY 02/28/18 [History] GlipiZIDE [Glipizide ER] 10 mg PO DAILY 02/28/18 [History] Metoprolol Succinate [Toprol Xl] 50 mg PO DAILY 02/28/18 [History] Omeprazole [PriLOSEC] 20 mg PO DAILY 02/28/18 [History] Ondansetron HCl [Zofran] 8 mg PO Q8H PRN 02/28/18 [History] Pioglitazone HCl [Actos] 45 mg PO DAILY 02/28/18 [History] Potassium 99 mg PO DAILY 02/28/18 [History] Pramipexole Di-HCl [Pramipexole Dihydrochloride] 0.125 mg PO DAILY 02/28/18 [History] traZODone [TraZODone] 50 mg PO HS 02/28/18 [History] Allergy/AdvReac Type Severity Reaction Status Date / Time No Known Allergies Allergy Verified 09/02/15 12:42 All Systems Review: The remainder of the systems were reviewed and are negative Physical Examination Vital Signs, Last 4 Hours Temp Pulse Resp BP Pulse Ox 03/03/18 11:47 97.9 F 03/03/18 11:00 93 18 123/81 96 03/03/18 10:00 93 16 128/86 94 10/24/18 09:00 90 18 126/81 95 General: Conversant, No Apparent Distress HEENT: Atraumatic, Normocephaly, Mucus Membranes Moist Neck: No JVD, Normal carotid pulses Cardiac: Reg Rate and Rhythm, Normal S1 and S2, No Murmur Lungs: Normal Breath Sounds, No Wheeze, Rales, Rhonchi Neuro: Alert and responsive, No focal deficits noted Abdomen: Soft, Non-Tender Skin: No rashes noted on visualized skin Musculoskeletal: No Chest Wall Tenderness Extremities: No Clubbing, No Cyanosis, No Edema, Normal Pulses Results 03/03/18 03:35 03/03/18 03:35 Lab Results 03/02/18 03/02/18 03/02/18 16:06 16:06 16:06 WBC Hgb Hct Plt Count Sodium 133 L Potassium 3.8 Chloride 99 Carbon Dioxide 19 L BUN 14 Creatinine 0.94 Glucose 223 H Calcium 9.1 Magnesium Total Bilirubin AST ALT Alkaline Phosphatase Troponin I 0.58 H* B-Natriuretic Peptide 188 H 03/02/18 03/02/18 03/03/18 16:06 21:51 01:15 WBC Hgb Hct Plt Count Sodium Potassium Chloride Carbon Dioxide BUN Creatinine Glucose Calcium Magnesium 1.6 Total Bilirubin AST ALT Alkaline Phosphatase Troponin I 1.68 H* 2.08 H* B-Natriuretic Peptide 03/03/18 03/03/18 03/03/18 03:35 03:35 03:35 WBC 13.1 H D Hgb 8.8 L Hct 27.4 L Plt Count 452 H Sodium 134 L Potassium 3.9 Chloride 105 Carbon Dioxide 19 L BUN 22 Creatinine 1.10 Glucose 169 H Calcium 8.4 L Magnesium 1.5 L Total Bilirubin 0.5 AST 37 ALT 11 Alkaline Phosphatase 100 Troponin I B-Natriuretic Peptide Consult Discharge Plan - Plan Referrals: Grupo Purcell DO [Primary Care Provider] -
[2018-03-03] MEDS: *HR* Heparin 5,000 UNIT/ML VIAL SQ SCH ×2 (12:57→17:59)
--- NOTE | 2018-03-03 13:24 | Anesthesia Evaluation Post Op ---
Date of Encounter: 03/03/18 Time of Encounter: 13:22 - Vital Signs Vital Signs: Last Vital Signs Temp 97.9 F 03/03/18 12:00 Pulse 96 03/03/18 13:00 Resp 18 03/03/18 13:00 BP 126/78 03/03/18 13:00 Pulse Ox 96 03/03/18 13:00 - Lungs Lungs: Clear Ascult./Percussion - Airway Airway: Non-obstructed - Cardiovascular Regular Rate - Mental Status Mental Status: Alert & Oriented, Answers Appropriately - Pain Pain Scale: 3 - Nausea Vomiting Nausea Vomiting: Not Present - Hydration Hydration: NPO (for procedures) - Discharge PostOp Status: Transfer Patient to floor (Continue care in ICU; patient was extubated and her mental status is baseline, she is ungoing workup for a heart attack due to arrhythmias and hypoxia post-operatively)
--- NOTE | 2018-03-03 13:59 | Oncology Inp Progress Note ---
<Bonnie Claire L - Last Filed: 03/03/18 18:33> Date of Encounter: 03/03/18 Time of Encounter: 13:30 (1) Anemia Current Visit: Yes Status: Acute Assessment and plan: Normocytic, hypochromic anemia on presentation with hgb 7.6 Stool occult blood positive 02/28 GI consultation with plan for EGD/Colonoscopy (on hold secondary to admission with ICU) Folate/B12 are replete, LDH/Indirect bili normal SPEP no monoclonal proteins, findings suggestive of inflammatory response Iron <10, Ferritin 802 (acute phase reactant) Thrombocytosis likely secondary to PAULY Previously known patient to Dr. Arias for functional iron deficiency (with normal ferritin) requiring Injectafer in past S/P 2 units PRBC Plan: Hgb stable today Planning for endoscopy tomorrow following diagnostic heart cath today (GI and Cardio are working on timeline of heart cath and endoscopy this is still TBD) Qualifiers: Anemia type: unspecified type Qualified Code(s): D64.9 - Anemia, unspecified (2) Peritoneal carcinomatosis Current Visit: Yes Status: Suspected Assessment and plan: CT abdomen/pelvis reveals mesenteric nodularity as well as a 2.2 cm nodular mesenteric mass with several smaller nodular masses with small volume ascites. She underwent core needle biopsy of omental caking and paracentesis (with removal of 2750 mL of straw-colored ascites) on 03/01/2018. Final pathology is pending Discussed radiographic images concerning for metastatic process with patients family at bedside Differentials may include metastatic colon or gynecologic malignancy, among others Plan: Today, with patient more alert we again discussed the events and symptoms leading up to her presentation. We discussed radiographic results concerning for malignancy and need for pathology confirmation which we are still awaiting Treatment options to be discussed following final pathology At this time, she has multiple other issues taking precedence, she is planned for diagnostic heart cath for clearance for endoscopy tomorrow (i.e to establish anatomy and risk for CAD), followed by potential heart cath with intervention following endoscopy if this is needed following today(Timeline is still TBD) (3) Cirrhosis of liver Current Visit: Yes Status: Chronic Assessment and plan: GI following Workup initiated in recent outpatient consultation: Hepatitis negative ROXY, ANCA, AMA were negative AFP pending EGD planned pending her cardiac stability following admission to ICU Qualifiers: Hepatic cirrhosis type: unspecified hepatic cirrhosis Ascites presence: with ascites Qualified Code(s): K74.60 - Unspecified cirrhosis of liver; R18.8 - Other ascites Oncology: Subj Interval history: Ms. Cunningham has been successfullu extubated and doing well on O2 per nasal cannula. Her son, granddaughter and are at bedside. She has some generalized abdominal tenderness, otherwise is doing well. She denies chest pain, SOB, H/A, dizziness or any s/s bleeding. - Constitutional Vitals: Vital Signs Temp Pulse Resp BP Pulse Ox 03/03/18 13:00 96 18 126/78 96 03/03/18 12:00 97.9 F 95 18 117/72 96 03/03/18 11:47 97.9 F 03/03/18 11:00 93 18 123/81 96 03/03/18 10:00 93 16 128/86 94 03/03/18 09:00 90 18 126/81 95 03/03/18 08:00 95 16 122/96 96 03/03/18 07:58 15 97 03/03/18 07:40 98.1 F 98 03/03/18 07:30 98 14 126/80 98 03/03/18 07:15 19 126/81 96 03/03/18 06:11 11 136/85 99 03/03/18 06:00 94 16 136/85 99 03/03/18 05:00 87 16 124/85 98 03/03/18 04:05 18 118/74 99 03/03/18 04:00 97.6 F 97 16 124/84 99 03/03/18 03:00 80 16 121/74 98 03/03/18 02:00 73 16 101/70 99 03/03/18 01:19 19 99 03/03/18 01:00 74 16 127/82 99 03/03/18 00:00 97.5 F L 75 16 91/57 97 03/02/18 23:40 27 80/62 98 03/02/18 23:00 85 16 113/78 100 03/02/18 22:00 77 16 78/62 99 03/02/18 21:00 74 16 65/40 100 03/02/18 20:38 16 63/47 99 03/02/18 20:00 97.6 F 84 16 88/68 99 03/02/18 19:00 86 16 87/61 99 03/02/18 18:00 97 16 102/68 99 03/02/18 17:15 97 19 121/77 97 03/02/18 17:11 16 122/55 98 03/02/18 17:00 97 03/02/18 16:00 98.2 F 114 16 127/80 98 03/02/18 15:55 16 127/80 96 03/02/18 15:15 122 16 148/95 97 03/02/18 14:40 111 12 135/86 97 03/02/18 14:25 107 12 135/86 96 03/02/18 14:10 108 12 138/91 97 Intake and Output 03/02/18 03/03/18 03/03/18 23:59 07:59 15:59 Intake Total 1625.1 / 1625.1 1100 / 1100 Output Total 125 / 125 200 / 200 100 / 100 Balance 1500.1 / 1500.1 900 / 900 -90 / -90 Intake: IV Fluids 1625.1 / 1625.1 1100 / 1100 0.9 % Sodium Chloride 1,000 ML 1000 / 1000 @ 999 mls/hr IV .Q1H1M ONE Rx#: [id number] 0.9 % Sodium Chloride 1,000 ML 1000 / 1000 @ 75 mls/hr IVC .[id number] [facility] Rx #:[id number] PRECEDEX Premix 400 mcg In 100 56.1 / 56.1 ml @ 0.2 MCG/KG/HR 4.075 mls/hr IVC .Q24H [facility] Rx#:[id number] FentaNYL (PF) 1,000 MCG In 0.9 47 / 47 % Sodium Chloride 80 ML @ 50 MCG/HR 5 mls/hr IVC CONT [facility] Rx #:[id number] Rocephin 1,000 MG In Water for inj. (sterile) 10 ML @ 600 mls/ hr IVP DAILY [facility] Rx#:[id number] Flexbumin 25 gm In 100 ml @ 60 100 / 100 mls/hr IVPB ONCE ONE Rx#: [id number] KCl 40 MEQ Xylocaine 2 ML In 522 / 522 Dextrose 5% 500 ML @ 130.5 mls/ hr IVPB ONCE ONE Rx#:[id number] Output: Catheter 125 / 125 200 / 200 100 / 100 Other: Stool Size Small Stool Consistency liquid Stool Color Green # Bowel Movements 1 Blood Glucose* 253 166 147 General appearance: cooperative, no acute distress, no febrile - Head Head exam: Present: atraumatic - ENT ENT exam: Present: mucous membranes moist - Respiratory Respiratory exam: Present: CTAB. Absent: respiratory distress - Cardiovascular Cardiovascular exam: Present: RRR, +S1, +S2 - GI/Abdominal GI/Abdominal exam: Present: distended, hypoactive bowel sounds, soft, tenderness. Absent: guarding, rebound - Extremities Exam Extremities exam: Absent: calf tenderness - Neurological Exam Neurological exam: Present: alert, oriented X3, no focal deficits, strengths equal and symetr throughout - Psychiatric Psychiatric exam: Present: normal affect, normal mood - Skin Skin exam: Present: dry, intact, normal color, warm Oncology: Obj Data - Labs CBC & Chem 7: 03/03/18 03:35 03/03/18 03:35 - Impressions Impressions Echocardiogram 03/02/18 15:25 Impressions: LVEF 20-25%. Segmental LV systolic dysfunction - mid and distal segments are severely hypokinetic with normal to hyperdynamic basal segmental function. 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 Recommend clinical correlation. Mildly dilated left ventricle. Indeterminate diastolic function. There is no LV thrombus. Definity echo contrast was used. Normal RV size with grossly normal function - not all wall segments are well visualized. Mild-moderate mitral regurgitation. Moderate tricuspid regurgitation. Mild pulmonic regurgitation. Chest X-Ray 03/02/18 22:56 IMPRESSION: Status post right jugular central venous catheter. No pneumothorax. Overall improved aeration lungs since the prior study earlier today. Bibasilar airspace disease, likely atelectasis. Pneumonia is not excluded, particularly in the left lower lobe. D/ / Norma Fowler Cha, MD / Norma Fowler Cha, MD Interpreting Provider: Norma Fowler Cha, MD - ABG Interpretation ABG results: ABG ABG pH 7.43 pH Units (7.32-7.45) 03/03/18 04:45 ABG pCO2 28 mmHg (35-45) L 03/03/18 04:45 ABG pO2 148 mmHg (85-104) H 03/03/18 04:45 ABG O2 Saturation 99 % (95-98) H 03/03/18 04:45 PT/INR, D-dimer PT 15.9 Seconds (9.4-12.1) H 02/28/18 13:19 Consult Discharge Plan - Plan Referrals: Grupo Purcell, [Primary Care Provider] - <Hardik Ding - Last Filed: 03/03/18 21:09> - Constitutional Vitals: Vital Signs Temp Pulse Resp BP Pulse Ox 03/03/18 20:09 97.8 F 03/03/18 18:00 98 16 117/69 95 03/03/18 17:00 98 16 112/61 96 03/03/18 16:00 97.6 F 95 18 108/60 96 03/03/18 15:00 87 16 116/62 95 03/03/18 14:00 107 16 111/79 95 03/03/18 13:00 96 18 126/78 96 03/03/18 12:00 97.9 F 95 18 117/72 96 03/03/18 11:47 97.9 F 03/03/18 11:00 93 18 123/81 96 03/03/18 10:00 93 16 128/86 94 03/03/18 09:00 90 18 126/81 95 03/03/18 08:00 95 16 122/96 96 03/03/18 07:58 15 97 03/03/18 07:40 98.1 F 98 03/03/18 07:30 98 14 126/80 98 03/03/18 07:15 19 126/81 96 03/03/18 06:11 11 136/85 99 03/03/18 06:00 94 16 136/85 99 03/03/18 05:00 87 16 124/85 98 03/03/18 04:05 18 118/74 99 03/03/18 04:00 97.6 F 97 16 124/84 99 03/03/18 03:00 80 16 121/74 98 03/03/18 02:00 73 16 101/70 99 03/03/18 01:19 19 99 03/03/18 01:00 74 16 127/82 99 03/03/18 00:00 97.5 F L 75 16 91/57 97 03/02/18 23:40 27 80/62 98 03/02/18 23:00 85 16 113/78 100 03/02/18 22:00 77 16 78/62 99 Intake and Output 03/03/18 03/03/18 03/04/18 08:59 16:59 00:59 Intake Total 1100 / 1100 114 / 114 0 / 0 Output Total 200 / 200 300 / 300 150 / 150 Balance 900 / 900 -186 / -186 -150 / -150 Intake: IV Fluids 1100 / 1100 114 / 114 0 / 0 0.9 % Sodium Chloride 1,000 ML 1000 / 1000 @ 999 mls/hr IV .Q1H1M ONE Rx#: [id number] FentaNYL (PF) 1,000 MCG In 0.9 0 / 0 % Sodium Chloride 80 ML @ 50 MCG/HR 5 mls/hr IVC CONT [facility] Rx #:[id number] Rocephin 1,000 MG In Water for inj. (sterile) 10 ML @ 600 mls/ hr IVP DAILY [facility] Rx#:[id number] Flexbumin 25 gm In 100 ml @ 60 100 / 100 mls/hr IVPB ONCE [facility] Rx#: [id number] Magnesium Sulfate 2 GM In 0.9 % 104 / 104 Sodium Chloride 100 ML @ 104 mls/hr IVPB ONCE [facility] Rx#: [id number] Output: Catheter 200 / 200 300 / 300 150 / 150 Other: Stool Size Small Stool Consistency liquid Stool Color Green # Bowel Movements 1 Blood Glucose* 147 124 Oncology: Obj Data - Labs CBC & Chem 7: 03/03/18 03:35 03/03/18 03:35 Labs: Laboratory Results - last 24 hr 03/02/18 03/02/18 03/02/18 13:09 21:51 23:13 WBC RBC Hgb Hct MCV MCH MCHC RDW Plt Count MPV Immature Gran % Seg Neutrophils % Lymphocytes % Monocytes % Eosinophils % Basophils % Neutrophils # Lymphocytes # Monocytes # Eosinophils # Basophils # Sample Site ABG pH 7.40 ABG pCO2 34 L ABG pO2 312 H ABG HCO3 21 ABG Total CO2 22 ABG O2 Saturation 100 H ABG Base Excess -3 L ABG Hematocrit 29.0 L Fabián Test ABG Chloride 103 Sodium 138 Potassium 3.4 L Glucose 200 H Respiration Rate O2 Delivery Device Blood Gas Modality Inspired O2 Tidal Volume PEEP Chloride Carbon Dioxide BUN Creatinine Est GFR ( Amer) Est GFR (Non-Af Amer) BUN/Creatinine Ratio POC Glucose 162 H Calculated Osmolality Calcium Venous Ioniz Calcium Phosphorus Magnesium Total Bilirubin AST ALT Alkaline Phosphatase Troponin I 1.68 H* Serum Total Protein Albumin Globulin Albumin/Globulin Ratio Arterial Blood Ionized Calcium 1.26 03/03/18 03/03/18 03/03/18 01:15 03:35 03:35 WBC 13.1 H D RBC 3.17 L Hgb 8.8 L Hct 27.4 L MCV 86.4 MCH 27.8 L MCHC 32.1 RDW 15.1 H Plt Count 452 H MPV 9.5 Immature Gran % 1.9 Seg Neutrophils % 85.0 Lymphocytes % 7.2 Monocytes % 5.7 Eosinophils % 0.0 Basophils % 0.2 Neutrophils # 11.1 H Lymphocytes # 0.9 Monocytes # 0.8 Eosinophils # 0.0 Basophils # 0.0 Sample Site ABG pH ABG pCO2 ABG pO2 ABG HCO3 ABG Total CO2 ABG O2 Saturation ABG Base Excess ABG Hematocrit Fabián Test ABG Chloride Sodium Potassium Glucose Respiration Rate O2 Delivery Device Blood Gas Modality Inspired O2 Tidal Volume PEEP Chloride Carbon Dioxide BUN Creatinine Est GFR ( Amer) Est GFR (Non-Af Amer) BUN/Creatinine Ratio POC Glucose Calculated Osmolality Calcium Venous Ioniz Calcium Phosphorus Magnesium 1.5 L Total Bilirubin AST ALT Alkaline Phosphatase Troponin I 2.08 H* Serum Total Protein Albumin Globulin Albumin/Globulin Ratio Arterial Blood Ionized Calcium 03/03/18 03/03/18 03/03/18 03:35 03:52 04:45 WBC RBC Hgb Hct MCV MCH MCHC RDW Plt Count MPV Immature Gran % Seg Neutrophils % Lymphocytes % Monocytes % Eosinophils % Basophils % Neutrophils # Lymphocytes # Monocytes # Eosinophils # Basophils # Sample Site R Radial ABG pH 7.43 ABG pCO2 28 L ABG pO2 148 H ABG HCO3 19 L ABG Total CO2 19 L ABG O2 Saturation 99 H ABG Base Excess -5 L ABG Hematocrit Fabián Test N/A ABG Chloride Sodium 134 L Potassium 3.9 Glucose 169 H Respiration Rate 16 O2 Delivery Device Adult Vent Blood Gas Modality PRVC Inspired O2 40.0 Tidal Volume 450 PEEP 5 Chloride 105 Carbon Dioxide 19 L BUN 22 Creatinine 1.10 Est GFR ( Amer) 59 L Est GFR (Non-Af Amer) 48 L BUN/Creatinine Ratio 20 POC Glucose Calculated Osmolality 285 Calcium 8.4 L Venous Ioniz Calcium 1.18 Phosphorus 3.6 Magnesium Total Bilirubin 0.5 AST 37 ALT 11 Alkaline Phosphatase 100 Troponin I Serum Total Protein 6.3 L Albumin 2.5 L Globulin 3.8 H Albumin/Globulin Ratio 0.7 L Arterial Blood Ionized Calcium 03/03/18 03/03/18 03/03/18 05:59 11:20 18:02 WBC RBC Hgb Hct MCV MCH MCHC RDW Plt Count MPV Immature Gran % Seg Neutrophils % Lymphocytes % Monocytes % Eosinophils % Basophils % Neutrophils # Lymphocytes # Monocytes # Eosinophils # Basophils # Sample Site ABG pH ABG pCO2 ABG pO2 ABG HCO3 ABG Total CO2 ABG O2 Saturation ABG Base Excess ABG Hematocrit Fabián Test ABG Chloride Sodium Potassium Glucose Respiration Rate O2 Delivery Device Blood Gas Modality Inspired O2 Tidal Volume PEEP Chloride Carbon Dioxide BUN Creatinine Est GFR ( Amer) Est GFR (Non-Af Amer) BUN/Creatinine Ratio POC Glucose 158 H 143 H 124 H Calculated Osmolality Calcium Venous Ioniz Calcium Phosphorus Magnesium Total Bilirubin AST ALT Alkaline Phosphatase Troponin I Serum Total Protein Albumin Globulin Albumin/Globulin Ratio Arterial Blood Ionized Calcium - Impressions Impressions Chest X-Ray 03/02/18 22:56 IMPRESSION: Status post right jugular central venous catheter. No pneumothorax. Overall improved aeration lungs since the prior study earlier today. Bibasilar airspace disease, likely atelectasis. Pneumonia is not excluded, particularly in the left lower lobe. D/ / Norma Fowler Cha, MD / Norma Fowler Cha, MD Interpreting Provider: Norma Fowler Cha, MD - ABG Interpretation ABG results: ABG ABG pH 7.43 pH Units (7.32-7.45) 03/03/18 04:45 ABG pCO2 28 mmHg (35-45) L 03/03/18 04:45 ABG pO2 148 mmHg (85-104) H 03/03/18 04:45 ABG O2 Saturation 99 % (95-98) H 03/03/18 04:45 PT/INR, D-dimer PT 15.9 Seconds (9.4-12.1) H 02/28/18 13:19 Inpatient Charges Provider: Dr. Tamar Ding Follow up - Inpatient: [id number] - Attending Attestation I examined this patient and my medical decision-making was reviewed with the Advanced Practice Nurse. I agree with the documented findings, disposition and treatment plan as described except to the extent set forth below. I met with Ms. Cunningham and family today and reviewed her imaging and potential differential diagnosis. I am concerned she may have an underlying gastrointestinal malignancy given her iron deficiency. Gynecologic malignancy and much less likely mesothelioma a possibility. D/W pathology today, IHC stains pending. Agree with proceeding with GI evaluation; may impact cardiac decisions if bleeding malignancy identified. Given her metastatic peritoneal disease, I would take a conservative approach with regard to cardiac interventions. We will continue to follow. I spent 60 minutes caring for this patient with 40 min utes in counseling.
[2018-03-03 14:06] LABS: ABG Base Excess -3 mEq/L (-2 to 3); ABG Chloride 103 mEq/L (98-107); ABG Glucose 200 mg/dL (60-95); ABG HCO3 21 mEq/L (21-27); ABG Ionized Calcium 1.26 mmol/L (1.15-1.35); ABG Oxygen Saturation 100 % (95-98); ABG PCO2 34 mmHg (35-45); ABG PO2 312 mmHg (85-104); ABG TCO2 22 mEq/L (20-26)
--- NOTE | 2018-03-03 15:39 | Palliative - Consult Note ---
Date of Encounter: 03/03/18 Time of Encounter: 15:25 - Assessment and Plan (1) Abdominal pain Current Visit: Yes Status: Acute Assessment and plan: Patient has Oxycodone available if needed. Utilized x1 today. Patient states this was helpful. Qualifiers: Abdominal location: generalized Qualified Code(s): R10.84 - Generalized abdominal pain (2) Goals of care, counseling/discussion Current Visit: Yes Status: Acute Assessment and plan: Took today to meet and greet family. Explained our role in assistance with symptom management, goals of care discussion, advance care planning. Patient tearful during visit, her wedger machine at bedside as well as son and . Will continue to follow clinical course closely and assist as needed. (3) NSTEMI (non-ST elevated myocardial infarction) Current Visit: Yes Status: Acute Assessment and plan: Cardiology following. Heart cath pending.. (4) UTI (urinary tract infection) Current Visit: Yes Status: Resolved Assessment and plan: On IV atb Qualifiers: Urinary tract infection type: acute cystitis Hematuria presence: without hematuria Qualified Code(s): N30.00 - Acute cystitis without hematuria (5) Ureteral calculus, right Current Visit: Yes Status: Acute Assessment and plan: S/p stent placement. Urology on board (6) Peritoneal carcinomatosis Current Visit: Yes Status: Suspected Assessment and plan: Pathology pending - oncology following. D/W Bonnie Claire NP Palliative-CN HPI - Data of Consult Consult date: 03/03/18 Requesting Physician: Miquel Lara Primary Care Provider: Grupo Purcell DO - Consult Narrative History of present illness: Ms. Cunningham is a 77 year old female who presented to ER for c/o abdominal pain and distention. She had previous CT scan with mesenteric nodularity, and was scheduled for biopsy, however, her symptoms worsened and came to hospital. CT performed here did demonstrateextensive peritoneal carcinomatosis with small volume ascites. She had biopsy and paracentesis on 03/01/18. Pathology remains pending. She was also found to have UTI and ureteral calculus, urology consult was obtained and she had Cystoscopy/Pyelography and placement of right stent. Along with these conditions, she developed SVT and required adenosine, Vtach with spontaneous conversion, and then atrial fibrillation. Cardiology consult was obtained. She also has anemia with hemoccult + stool - Gastroenterology is following. She had also been seen by Dr. Meraz for a new diagnosis of cirrhosis. Oncology has also seen patient, and still awaiting pathology results, and results from other pending testing. Discussion is ongoing regarding possible EGD/Colonscopy and heart cath and timing of these is ongoing. Upon my visit, she is teary, but pleasant, calm, and cooperative. Frustrated at the number of tests, and overwhelmed with information. Her , son, and fitter type bar and segment are at bedside. She states her only discomfort is from laying in the bed. She does have some intermitted shortness of breath. States only has nausea r/t having no solid food for over 3 days. Awaiting to hear what the "next step" is, and is very glad she is extubated, and states that was "miserable". Palliative care was consulted to assist with goals of care discussion and symptom management for this very nice yet unfortunate patient. CC: Miquel Lara - Time Spent with Patient Time: Total time spent is greater than 50% in coordination of care (as documented) at patient's floor/unit and/or counseling patient: Past Med Surg Social Fam HX - Past Medical History Medical history: coronary artery disease, diabetes, hyperlipidemia, hypertension Additional medical history: DIABETIC NEUROPATHY Psychiatric history: no psych history - Past Surgical History Surgical History: coronary bypass (CABG) - Social History Smoking Status: Never smoker Smokeless Tobacco Status: No Alcohol use: none Drug use: none - Family History Mother Living Status: Hx Family Cardiac Disorders: Yes (HTN) Hx Family Respiratory Disorders: No Hx Family Cancer: No Hx Family GI Disorders: No Hx Family Genitourinary Disorders: No Hx Family Endocrine Disorder: Yes Hx Family Musculoskeletal Disorders: No Hx Family Neuromuscular Disorders: No Hx Family Neurologic Disorders: No Hx Family HEENT Disorders: No Hx Family Autoimmune Disorders: No Hx Family Reproductive Disorders: No Hx Family Psychosocial Disorders: No Father Hx Family Cardiac Disorders: No Hx Family Respiratory Disorders: No Hx Family Cancer: Yes (mouth) Hx Family GI Disorders: No Hx Family Genitourinary Disorders: No Hx Family Endocrine Disorder: No Hx Family Musculoskeletal Disorders: No Hx Family Neuromuscular Disorders: No Hx Family Neurologic Disorders: No Hx Family HEENT Disorders: No Hx Family Autoimmune Disorders: No Hx Family Reproductive Disorders: No Hx Family Psychosocial Disorders: No Medications and Allergies Acetaminophen [Tylenol Arthritis] 650 mg PO TID PRN 02/28/18 [History] Aspirin [Adult Aspirin] 81 mg PO DAILY 02/28/18 [History] Atorvastatin [Lipitor] 40 mg PO HS 02/28/18 [History] Cyanocobalamin (Vitamin B-12) [Vitamin B-12] 1,000 mcg PO DAILY 02/28/18 [History] Ferrous Sulfate [Iron] 325 mg PO DAILY 02/28/18 [History] GlipiZIDE [Glipizide ER] 10 mg PO DAILY 02/28/18 [History] Metoprolol Succinate [Toprol Xl] 50 mg PO DAILY 02/28/18 [History] Omeprazole [PriLOSEC] 20 mg PO DAILY 02/28/18 [History] Ondansetron HCl [Zofran] 8 mg PO Q8H PRN 02/28/18 [History] Pioglitazone HCl [Actos] 45 mg PO DAILY 02/28/18 [History] Potassium 99 mg PO DAILY 02/28/18 [History] Pramipexole Di-HCl [Pramipexole Dihydrochloride] 0.125 mg PO DAILY 02/28/18 [History] traZODone [TraZODone] 50 mg PO HS 02/28/18 [History] Allergy/AdvReac Type Severity Reaction Status Date / Time No Known Allergies Allergy Verified 09/02/15 12:42 All systems: reviewed and no additional remarkable complaints except as stated (generalized discomfort from lying in bed, abd distention, generalized weakness, intermittent chest pain) Palliative Care-Exam - Constitutional Vitals: Temp Pulse Resp BP Pulse Ox 97.9 F 107 16 111/79 95 03/03/18 12:00 03/03/18 14:00 03/03/18 14:00 03/03/18 14:00 03/03/18 14:00 General appearance: Present: febrile, cooperative, no acute distress - Head Head Exam: Present: normal inspection, normocephalic - Respiratory Respiratory exam: Present: CTAB - Cardiovascular Cardiovascular exam: Present: +S1, +S2 - GI/Abdominal Exam GI/Abdominal exam: Present: distended, normal bowel sounds, soft, tenderness - Catheter Type: Urethral (Bowser) Additional comments: Bowser with clear yellow urint - Extremities Exam Extremities exam: Present: normal capillary refill, normal inspection - Neurological Exam Neurological exam: Present: alert, oriented X3, strengths equal and symetr throughout - Psychiatric Psychiatric exam: Present: normal affect, normal mood - Skin Skin exam: Present: dry, pallor, warm Internal Medicine - CN: Reslt - Labs CBC & Chem 7: 03/03/18 03:35 03/03/18 03:35 Labs: Short CBC 03/03/18 Range/Units 03:35 WBC 13.1 H D (4.3-11.1) K/mcL Hgb 8.8 L (11.5-15.4) g/dL Hct 27.4 L (35.3-44.9) % Plt Count 452 H (140-400) K/mcL Neutrophils # 11.1 H (1.6-8.9) K/mcL BMP 03/02/18 03/03/18 16:06 03:35 Sodium 133 L 134 L Potassium 3.8 3.9 Chloride 99 105 Carbon Dioxide 19 L 19 L BUN 14 22 Creatinine 0.94 1.10 Glucose 223 H 169 H Calcium 9.1 8.4 L Cardiac Enzymes 03/02/18 03/02/18 03/03/18 Range/Units 16:06 21:51 01:15 Troponin I 0.58 H* 1.68 H* 2.08 H* (< 0.04) ng/mL Liver Function 03/03/18 Range/Units 03:35 Total Bilirubin 0.5 (0.3-1.0) mg/dL AST 37 (13-39) Units/L ALT 11 (7-52) Units/L Alkaline Phosphatase 100 (34-104) Units/L Albumin 2.5 L (3.5-5.7) g/dL - ABG Interpretation ABG results: ABG ABG pH 7.43 pH Units (7.32-7.45) 03/03/18 04:45 ABG pCO2 28 mmHg (35-45) L 03/03/18 04:45 ABG pO2 148 mmHg (85-104) H 03/03/18 04:45 ABG O2 Saturation 99 % (95-98) H 03/03/18 04:45 PT/INR, D-dimer PT 15.9 Seconds (9.4-12.1) H 02/28/18 13:19 - Impressions Impressions Echocardiogram 03/02/18 15:25 Impressions: LVEF 20-25%. Segmental LV systolic dysfunction - mid and distal segments are severely hypokinetic with normal to hyperdynamic basal segmental function. 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 Recommend clinical correlation. Mildly dilated left ventricle. Indeterminate diastolic function. There is no LV thrombus. Definity echo contrast was used. Normal RV size with grossly normal function - not all wall segments are well visualized. Mild-moderate mitral regurgitation. Moderate tricuspid regurgitation. Mild pulmonic regurgitation. Chest X-Ray 03/02/18 22:56 IMPRESSION: Status post right jugular central venous catheter. No pneumothorax. Overall improved aeration lungs since the prior study earlier today. Bibasilar airspace disease, likely atelectasis. Pneumonia is not excluded, particularly in the left lower lobe. D/ / Norma Fowler Cha, MD / Norma Fowler Cha, MD Interpreting Provider: Norma Fowler Cha, MD Consult Discharge Plan - Plan Referrals: Grupo Purcell DO [Primary Care Provider] - Palliative Quality Palliative Quality: Screen for Code Status: No (Discussion will be ongoing after test results), Screen for Goals of Care: No, Screen for Pain: Yes, If Pain Regimen Started, Initiate Bowel Regimen: No, Screen for Nausea/Vomitting: Yes Code Status: 02/28/18 15:34 Resuscitation Status: Active [RES] Routine Comment: Resuscitation Status: Full Code
[2018-03-03] MEDS ORDERED: Famotidine 20 MG/2 ML VIAL IVP SCH (18:00)
[2018-03-03] MEDS: traZODone 50 MG TABLET PO SCH (20:02)
[2018-03-04 00:26] LABS: Fluid Source for Albumin ASCITES
[2018-03-04 04:13] LABS: Basophils % 0.2 %; Eosinophils # 0.1 K/mcL (0.0-0.6); Eosinophils % 0.4 %; Hematocrit 25.4 % (35.3-44.9); Immature Granulocytes % 1.7 % (0-4); Lymphocytes # 1.2 K/mcL (0.6-4.6); Lymphocytes % 9.6 %; Mean Corpuscular HGB Conc 31.5 g/dL (31.6-35.5); Mean Corpuscular Hemoglobin 27.5 pg (28.0-33.3); Mean Corpuscular Volume 87.3 fL (83.0-100.0); Mean Platelet Volume 9.4 fL (9.4-12.4); Monocytes # 1.1 K/mcL (0.0-1.3); Monocytes % 8.2 %; Neutrophils # 10.2 K/mcL (1.6-8.9); Nucleated Red Blood Cells 0.2 /100 WBC (0); Platelet Count 404 K/mcL (140-400); Red Blood Count 2.91 M/mcL (3.82-4.97); Red Cell Distribution Width 15.4 % (11.5-14.5); Segmented Neutrophils % 79.9 %
[2018-03-04 04:31] LABS: Alanine Aminotransferase 18 Units/L (7-52); Albumin 2.3 g/dL (3.5-5.7); Albumin/Globulin Ratio 0.7 (1.1-2.2); Alkaline Phosphatase 89 Units/L (34-104); Aspartate Amino Transferase 47 Units/L (13-39); BUN/Creatinine Ratio 21 (6-26); Bilirubin,Total 0.5 mg/dL (0.3-1.0); Blood Urea Nitrogen 23 mg/dL (8-23); Calcium 8.6 mg/dL (8.6-10.3); Carbon Dioxide 20 mEq/L (23-29); Chloride 105 mEq/L (98-107); Globulin 3.5 g/dL (2.4-3.5); Glucose 138 mg/dL (70-105); Magnesium 1.7 mg/dL (1.6-2.6); Osmolality,Calculated 288 (280-300); Potassium 3.7 mEq/L (3.5-5.1); Sodium 136 mEq/L (136-145); Total Protein 5.8 g/dL (6.4-8.9); eGFR For Non-African Americans 50 (> 60)
[2018-03-04 04:49] LABS: Bilirubin,Urine Negative (Negative); Blood,Urine Large (Negative); Clarity,Urine Cloudy (Clear); Color,Urine Yellow (Yellow); Glucose,Urine (UA) Normal (Normal); Ketones,Urine 15 mg/dL (Negative); Leukocyte Esterase,Urine Moderate (Negative); Nitrite,Urine Negative (Negative); PH,Urine 6.5 pH Units (5.0-8.0); Protein,Urine 100 mg/dL (Neg-Trace); Urobilinogen,Urine Normal (Normal)
[2018-03-04] MEDS: Insulin LISPRO 300 UNITS/3 ML VIAL SQ SCH ×4 (06:05→23:45)
[2018-03-04] MEDS: *HR* Heparin 5,000 UNIT/ML VIAL SQ SCH ×2 (06:07→16:55)
[2018-03-04] MEDS: cefTRIAXone 1,000 MG in Water for inj. (sterile) 20 ML 10 ML IVP SCH (08:17)
[2018-03-04] MEDS: Cyanocobalamin (B-12) 1,000 MCG TABLET PO SCH (08:19)
[2018-03-04] MEDS: Multivit/Ca/Min/Fe/FA 1 TAB TABLET PO SCH (08:19)
[2018-03-04] MEDS ORDERED: *HR* Metoprolol 5 MG/5 ML VIAL IVP ONE (08:22)
[2018-03-04] MEDS: OXYCODONE Oral CONC 10 MG/0.5 ML ORAL.SYG SL PRN ×4 (08:27→23:14)
--- NOTE | 2018-03-04 10:46 | Pulmonology Progress Note ---
Addendum entered and electronically signed by Goran Ely 03/05/18 06:30: Original Note: <Goran Ely - Last Filed: 03/04/18 15:45> Date of Encounter: 03/04/18 Time of Encounter: 08:29 Assessment and Plan (1) NSTEMI (non-ST elevated myocardial infarction) Current Visit: Yes Status: Acute Elevated troponins with exertional angina. ECHO resulted in EF 20-25% cardiology consulted appreciate recs; LHC to perferformed soon, concern for GI bleed with low hemoglobins. (EGD and colonoscopy planned for today) cardiology would like to perform LHC after EGD/ colonscopy f patient needs to be anticoagulated (2) Respiratory failure with hypoxia Current Visit: Yes Status: Acute Etiology unclear at this time likely a component of systolic CHF Became hypoxic after extubation after cystoscopy with stone removal and stent placement patient needed to be reintubated Patient was extubated yesterday. Doing well. sat 95% on 2L nasal cannula Continue to monitor Qualifiers: Chronicity: acute Qualified Code(s): J96.01 - Acute respiratory failure with hypoxia (3) Afib Current Visit: Yes Status: Acute CUrrently in sinus rhythm ECHO found EF of 25-30% extensive coronary artery disease with some ischemic changes in the EKG troponins elevated concern for NSTEMI now she has supraventricular arrhythmias which degenerates to atrial fibrillation lopressor was given in addition to LASIX one time dose however patient developed hypotension and both were removed as well as fentanyl Hypotensive etiology unknown questioning sedative vs lopressor and/or lasix Patient is currently extubated and no longer on sedatives one does of lopressor given as patient developed SVT Patient developed SVT after colonscopy and egd. was given adenosine twice. cardizem drip was ordered and titrated to a HR below 90 Qualifiers: Atrial fibrillation type: unspecified Qualified Code(s): I48.91 - Unspecified atrial fibrillation (4) Peritoneal carcinomatosis Current Visit: Yes Status: Suspected CT abdomen/pelvis reveals mesenteric nodularity as well as a 2.2 cm nodular mesenteric mass with several smaller nodular masses with small volume ascites. She underwent core needle biopsy of omental caking and paracentesis (with removal of 2750 mL of straw-colored ascites) on 03/01/2018. Final pathology is pending Oncology consulted appreciate recs further workup recommended pending cardio/pulm stability palliative consulted appreciate recs (5) Systolic CHF Current Visit: Yes Status: Acute ECHO found reduced EF of 20-25% Patient has cumulative positive fluid balance of 7 L Patient has only recieved on does of lasix but became hypotensive after. Unclear if it was due to lasix or labetolol or other etiology. cardiology consulted appreciate recs metoprolol 5mg q6 (6) Anemia Current Visit: Yes Status: Acute Normocytic, hypochromic anemia on presentation with hgb 7.6 Stool occult blood positive 02/28 GI consultation with plan for EGD/Colonoscopy per GI awaiting colonoscopy and EGD until patient stabilizes no indication for urgent colonoscopy as hemoglobin 8.0 of note cardio recommends cath however, would prefer GI to scope before incase patient needs anticoagulation and there is potential of GI bleed. heme/onc consulted appreciate recs Patient on home ferrous sulfate Qualifiers: Anemia type: unspecified type Qualified Code(s): D64.9 - Anemia, unspecified (7) UTI (urinary tract infection) Current Visit: Yes Status: Resolved E. coli cultured stone removed by urology continue Rocephin day 5 Qualifiers: Urinary tract infection type: acute cystitis Hematuria presence: without hematuria Qualified Code(s): N30.00 - Acute cystitis without hematuria (8) CAD (coronary artery disease) Current Visit: Yes Status: Chronic History of CAGB in 2011 cardio consulted appreciate recs Cardiology recommends cath plan as above Qualifiers: Coronary Disease-Associated Artery/Lesion type: hoh artery [place] vs. transplanted heart: hoh heart Associated angina: angina presence unspeci fied Qualified Code(s): I25.10 - Atherosclerotic heart disease of hoh coronary artery without angina pectoris (9) Hematuria, gross Current Visit: Yes Status: Acute per nursing report hematuria was noted Patient post op day 2 stone removal and ureteral stent placment UTI day 4 rochephin Retroperitoneal US delayed until tomorrow due to endoscopy and colonoscopy being scheduled (10) CKD (chronic kidney disease) stage 3, GFR 30-59 ml/min Current Visit: Yes Status: Chronic chronic creatinine 1.07 (11) Abdominal pain Current Visit: Yes Status: Acute Peritoneal carcinomatosis recent paracentesis Oxycodone SL PRN Qualifiers: Abdominal location: generalized Qualified Code(s): R10.84 - Generalized a bdominal pain (12) Cirrhosis of liver Current Visit: Yes Status: Chronic Based on CT scan findings patient has cirrhosis of the liver. Will treat supportively. Hepatitis viral screening negative GI consulted appreciate recs Qualifiers: Hepatic cirrhosis type: unspecified hepatic cirrhosis Ascites presence: with ascites Qualified Code(s): K74.60 - Unspecified cirrhosis of liver; R18.8 - Other ascites (13) Diabetes mellitus Current Visit: Yes Status: Chronic chronic currently npo continue to monitor SSI Qualifiers: Diabetes mellitus type: type 2 Diabetes mellitus shelter insulin use: unspecified shelter insulin use status Diabetes mellitus complication status: with kidney complications Diabetes mellitus complication detail: with chronic kidney disease Chronic kidney disease stage: stage 3 (moderate) Qualified Code(s): E11.22 - Type 2 diabetes mellitus with diabetic chronic kidney disease; N18.3 - Chronic kidney disease, stage 3 (moderate) (14) Essential hypertension Current Visit: Yes Status: Chronic on metoprolol at home (15) DVT prophylaxis Current Visit: Yes Status: Acute Heparin sq Subjective Principal diagnosis: hypoxic respiratory failure Interval history: Patient was a hospital patient who was admitted for peritoneal carcinomatosis with abdominal pain. Patient was sent to ICU fter extubation from stone removal and ureteral stent placment. the patient developed SVT and Vtach with respiratory distress and was reintubated. the following morning the patient was extubated. Currently on 2L nasal cannula. Patinet being seen by cardiology, GI, heme/onc, and palliative care. possible endoscopy and heart cath today. Awaiting omental biopsy for peritoneal carcinomatosis. Objective PUL Vital signs: Last Vital Signs Temp 97.5 F L 03/04/18 07:00 Pulse 94 03/04/18 06:00 Resp 18 03/04/18 06:00 BP 108/58 03/04/18 06:00 Pulse Ox 92 03/04/18 06:00 General appearance: no acute distress Eyes: nonicteric ENT: oropharynx moist Effort: normal Auscultation: bilateral: clear, rales Cardiovascular: irregular rhythm (tachycardic) Integumentary: normal normal mental status, non-focal exam mood appropriate, affect normal Results - Laboratory Findings CBC and BMP: 03/04/18 04:00 03/04/18 04:00 ABG ABG pH 7.43 pH Units (7.32-7.45) 03/03/18 04:45 ABG pCO2 28 mmHg (35-45) L 03/03/18 04:45 ABG pO2 148 mmHg (85-104) H 03/03/18 04:45 ABG O2 Saturation 99 % (95-98) H 03/03/18 04:45 PT/INR, D-dimer PT 15.9 Seconds (9.4-12.1) H 02/28/18 13:19 Abnormal lab findings: Abnormal lab results WBC 12.8 K/mcL (4.3-11.1) H 03/04/18 04:00 RBC 2.91 M/mcL (3.82-4.97) L 03/04/18 04:00 Hgb 8.0 g/dL (11.5-15.4) L 03/04/18 04:00 Hct 25.4 % (35.3-44.9) L 03/04/18 04:00 MCH 27.5 pg (28.0-33.3) L 03/04/18 04:00 MCHC 31.5 g/dL (31.6-35.5) L 03/04/18 04:00 RDW 15.4 % (11.5-14.5) H 03/04/18 04:00 Plt Count 404 K/mcL (140-400) H 03/04/18 04:00 Neutrophils # 10.2 K/mcL (1.6-8.9) H 03/04/18 04:00 Nucleated RBCs/100 WBC 0.2 /100 WBC (0) H 03/04/18 04:00 PT 15.9 Seconds (9.4-12.1) H 02/28/18 13:19 ABG pCO2 28 mmHg (35-45) L 03/03/18 04:45 ABG pO2 148 mmHg (85-104) H 03/03/18 04:45 ABG HCO3 19 mEq/L (21-27) L 03/03/18 04:45 ABG Total CO2 19 mEq/L (20-26) L 03/03/18 04:45 ABG O2 Saturation 99 % (95-98) H 03/03/18 04:45 ABG Base Excess -5 mEq/L (-2 to 3) L 03/03/18 04:45 ABG Hematocrit 29.0 % (35.3-44.9) L 03/02/18 13:09 Potassium 3.4 mEq/L (3.5-5.3) L 03/02/18 13:09 Glucose 200 mg/dL (60-95) H 03/02/18 13:09 Carbon Dioxide 20 mEq/L (23-29) L 03/04/18 04:00 Est GFR (Non-Af Amer) 50 (> 60) L 03/04/18 04:00 Glucose 138 mg/dL (70-105) H 03/04/18 04:00 POC Glucose 151 mg/dL (70-99) H 03/03/18 23:38 Iron < 10 mcg/dL (50-170) L 03/02/18 06:04 Transferrin 109 mg/dL (203-362) L 03/02/18 06:04 Ferritin 802 ng/mL (10-120) H 03/02/18 06:04 AST 47 Units/L (13-39) H 03/04/18 04:00 Ammonia < 10 mcmol/L (16-53) L 02/28/18 13:19 Lactate Dehydrogenase 113 Units/L (140-271) L 03/01/18 05:21 Troponin I 2.08 ng/mL (< 0.04) H* 03/03/18 01:15 B-Natriuretic Peptide 188 pg/mL (Less than 100) H 03/02/18 16:06 Serum Total Protein 5.8 g/dL (6.4-8.9) L 03/04/18 04:00 Albumin 2.3 g/dL (3.5-5.7) L 03/04/18 04:00 Albumin/Globulin Ratio 0.7 (1.1-2.2) L 03/04/18 04:00 Vitamin B12 > 1500 pg/mL (250-1100) H 03/02/18 06:04 Ur Specimen Adequacy See below A 03/04/18 04:00 Urine Clarity Cloudy (Clear) A 03/04/18 04:00 Urine Protein 100 mg/dL (Neg-Trace) H 03/04/18 04:00 Urine Ketones 15 mg/dL (Negative) H 03/04/18 04:00 Urine Blood Large (Negative) H 03/04/18 04:00 Ur Leukocyte Esterase Moderate (Negative) H 03/04/18 04:00 Urine Microscopic WBC 5-15 per hpf (0-3) H 02/28/18 13:29 Urine Bacteria Many per hpf (None-Few) H 02/28/18 13:29 Ur Culture Indicated? YES (NO) A 03/04/18 04:00 Periton Tot Nuc Cells 6653 TNC/mcL (0-300) H 02/28/18 15:59 Stool Occult Bld Scrn Positive (Negative) A 02/28/18 13:36 - Microbiology Findings Microbiology Findings: Microbiology, Last 48 Hours 03/01/18 15:59 Body Fluid Culture - Preliminary Peritoneal Fluid 03/02/18 22:10 Blood Culture - Preliminary Peripheral Venipuncture Culture is incubating and being continuously monitored for growth. Final report to follow. 03/02/18 22:17 Blood Culture - Preliminary Peripheral Venipuncture Culture is incubating and being continuously monitored for growth. Final report to follow. 02/28/18 13:29 Urine Culture - Final Urine,Clean Catch Escherichia coli - Clinical Findings Intake & Output: Intake & Output 03/03/18 03/04/18 03/04/18 23:59 07:59 15:59 Intake Total 0 / 0 Output Total 350 / 350 475 / 475 Balance -350 / -350 -475 / -475 Weight 80.6 kg Consult Discharge Plan - Plan Referrals: Grupo Purcell, [Primary Care Provider] - <Sergei Chacon - Last Filed: 03/04/18 21:46> Objective PUL Vital signs: Last Vital Signs Temp 97.5 F L 03/04/18 07:00 Pulse 92 03/04/18 12:00 Resp 18 03/04/18 12:00 BP 117/64 03/04/18 12:00 Pulse Ox 96 03/04/18 12:00 Results - Laboratory Findings CBC and BMP: 03/04/18 04:00 03/04/18 04:00 ABG ABG pH 7.43 pH Units (7.32-7.45) 03/03/18 04:45 ABG pCO2 28 mmHg (35-45) L 03/03/18 04:45 ABG pO2 148 mmHg (85-104) H 03/03/18 04:45 ABG O2 Saturation 99 % (95-98) H 03/03/18 04:45 PT/INR, D-dimer PT 15.9 Seconds (9.4-12.1) H 02/28/18 13:19 Abnormal lab findings: Abnormal lab results WBC 12.8 K/mcL (4.3-11.1) H 03/04/18 04:00 RBC 2.91 M/mcL (3.82-4.97) L 03/04/18 04:00 Hgb 8.0 g/dL (11.5-15.4) L 03/04/18 04:00 Hct 25.4 % (35.3-44.9) L 03/04/18 04:00 MCH 27.5 pg (28.0-33.3) L 03/04/18 04:00 MCHC 31.5 g/dL (31.6-35.5) L 03/04/18 04:00 RDW 15.4 % (11.5-14.5) H 03/04/18 04:00 Plt Count 404 K/mcL (140-400) H 03/04/18 04:00 Neutrophils # 10.2 K/mcL (1.6-8.9) H 03/04/18 04:00 Nucleated RBCs/100 WBC 0.2 /100 WBC (0) H 03/04/18 04:00 PT 15.9 Seconds (9.4-12.1) H 02/28/18 13:19 ABG pCO2 28 mmHg (35-45) L 03/03/18 04:45 ABG pO2 148 mmHg (85-104) H 03/03/18 04:45 ABG HCO3 19 mEq/L (21-27) L 03/03/18 04:45 ABG Total CO2 19 mEq/L (20-26) L 03/03/18 04:45 ABG O2 Saturation 99 % (95-98) H 03/03/18 04:45 ABG Base Excess -5 mEq/L (-2 to 3) L 03/03/18 04:45 ABG Hematocrit 29.0 % (35.3-44.9) L 03/02/18 13:09 Potassium 3.4 mEq/L (3.5-5.3) L 03/02/18 13:09 Glucose 200 mg/dL (60-95) H 03/02/18 13:09 Carbon Dioxide 20 mEq/L (23-29) L 03/04/18 04:00 Est GFR (Non-Af Amer) 50 (> 60) L 03/04/18 04:00 Glucose 138 mg/dL (70-105) H 03/04/18 04:00 POC Glucose 133 mg/dL (70-99) H 03/04/18 12:38 Iron < 10 mcg/dL (50-170) L 03/02/18 06:04 Transferrin 109 mg/dL (203-362) L 03/02/18 06:04 Ferritin 802 ng/mL (10-120) H 03/02/18 06:04 AST 47 Units/L (13-39) H 03/04/18 04:00 Ammonia < 10 mcmol/L (16-53) L 02/28/18 13:19 Lactate Dehydrogenase 113 Units/L (140-271) L 03/01/18 05:21 Troponin I 2.08 ng/mL (< 0.04) H* 03/03/18 01:15 B-Natriuretic Peptide 188 pg/mL (Less than 100) H 03/02/18 16:06 Serum Total Protein 5.8 g/dL (6.4-8.9) L 03/04/18 04:00 Albumin 2.3 g/dL (3.5-5.7) L 03/04/18 04:00 Albumin/Globulin Ratio 0.7 (1.1-2.2) L 03/04/18 04:00 Vitamin B12 > 1500 pg/mL (250-1100) H 03/02/18 06:04 Ur Specimen Adequacy See below A 03/04/18 04:00 Urine Clarity Cloudy (Clear) A 03/04/18 04:00 Urine Protein 100 mg/dL (Neg-Trace) H 03/04/18 04:00 Urine Ketones 15 mg/dL (Negative) H 03/04/18 04:00 Urine Blood Large (Negative) H 03/04/18 04:00 Ur Leukocyte Esterase Moderate (Negative) H 03/04/18 04:00 Urine Microscopic WBC 5-15 per hpf (0-3) H 02/28/18 13:29 Urine Bacteria Many per hpf (None-Few) H 02/28/18 13:29 Ur Culture Indicated? YES (NO) A 03/04/18 04:00 Periton Tot Nuc Cells 6653 TNC/mcL (0-300) H 02/28/18 15:59 Stool Occult Bld Scrn Positive (Negative) A 02/28/18 13:36 - Microbiology Findings Microbiology Findings: Microbiology, Last 48 Hours 03/01/18 15:59 Body Fluid Culture - Preliminary Peritoneal Fluid 03/02/18 22:10 Blood Culture - Preliminary Peripheral Venipuncture Culture is incubating and being continuously monitored for growth. Final report to follow. 03/02/18 22:17 Blood Culture - Preliminary Peripheral Venipuncture Culture is incubating and being continuously monitored for growth. Final report to follow. - Clinical Findings Intake & Output: Intake & Output 03/03/18 03/04/18 03/04/18 23:59 07:59 15:59 Intake Total 0 / 0 Output Total 350 / 350 475 / 475 Balance -350 / -350 -475 / -475 Weight 80.6 kg - Attending Attestation - Attending Attestation I saw and evaluated this patient and my medical decision-making was reviewed with the Resident Physician. I agree with the documented findings, disposition and treatment plan as described except to the extent set forth below. We independently had [id number] contact with the patient Patient seen and examined at bedside Labs, radiology, chart personally reviewed. Management was reviewed during multidisciplinary critical care rounds. CORRECTIVE THERAPIST: Patient is conscious oriented following commands no acute CORRECTIVE THERAPIST issues. Pulm: Patient has acceptable oxygenation and ventilation to continue nasal cannula BiPAP if needed. Cards: Patient has extensive coronary artery disease with some ischemic changes in the EKG trops were elevated with ECHO shows systolic heart failure patient will need cardiac catheterization. Most likely after upper endoscopy. FEN-GI: Nothing by mouth for now endoscopy will need to look for malignancy in upper GI tract Renal: Labs and output reviewed to continue diuresis as tolerated , patient had obstructing right ureteral calculus supported by J stent. ID: Patient has UTI growing Escherichia coli sensitive to ceftriaxone. Heme/Onc: Patient has peritoneal carcinomatosis had omental biopsy waiting for final biopsy result had some ascitic fluid sampled pending cytology Endo: Glucose Monitored Integ/MSK: Skin Care per routine ICU Nursing Protocol to prevent ulcers. Lines: All lines examined without evidence of infection : Dispo: Critically ill to remain in the ICU patient is getting cardiac catheterization and endoscopy. CODE:Full Code
--- NOTE | 2018-03-04 10:54 | Gastroenterology Progress Note ---
<SaviDallas Wu - Last Filed: 03/04/18 15:33> Date of Encounter: 03/04/18 Time of Encounter: 10:13 - Assessment and plan (1) Anemia Current Visit: Yes Status: Acute Assessment and plan: Hgb on admission was 7.6 and yesterday Hgb 8.8, today is 8.0. Continue to monitor CBC and transfuse PRBC as needed. Plan for upper endoscopy today to evaluate for upper GI bleed. Depending on findings we will consider colonoscopy Qualifiers: Anemia type: unspecified type Qualified Code(s): D64.9 - Anemia, unspecified (2) Cirrhosis of liver Current Visit: Yes Status: Chronic Assessment and plan: She saw Dr. Meraz on 02/25 and started workup for cirrhosis. Hepatitis profile was negative. ROXY, ANCA, AMA were negative. EGD deferred as above. On admission MELD-Na 21 and Child-Cruz class B. AFP Pending. Lifestyle Changes: 1. Total abstinence from alcohol including social drinking. 2. No smoking. 3. Gradual loss of weight. 4. Drink at least 3 cups of coffee due to its antioxidant effects in the liver, it reduces risk of HCC and advance fibrosis. 5. If needed, use less than 2 g/day of Tylenol (in divided doses). 6. Vaccination for Hep A, B, Pneumococcus if not already received and yearly influenza vaccination by PCP. 7. Avoid NSAIDS as can cause kidney damage. 8. Avoid benzodiazepines and other sedatives such as anti-histamines, narcotics etc. as can cause encephalopathy or confusion. 9. Take a late carbohydrate meal supplement as it reduces glucose production from protein breakdown and thus improves nutrition. 10. In cirrhosis, statins are safe to use and also improve portal hypertension and decrease risk of HCC. 11. Screening: o Hepatocellular cancer screening: US of liver and AFP every 6 months Qualifiers: Hepatic cirrhosis type: unspecified hepatic cirrhosis Ascites presence: with ascites Qualified Code(s): K74.60 - Unspecified cirrhosis of liver; R18.8 - Other ascites - Time Spent With Patient Total time spent is greater than 50% in coordination of care (as documented) at patient's floor/unit and/or counseling patient: - Subjective Interval history: Patient seen and examined at bedside. Patient states that she feels okay.. She does not have any specific complaints. She reports some mild abdominal bloating and mild discomfort. Denies any localized abdominal pain, nausea, vomiting, diarrhea. - Constitutional Vitals: Temp Pulse Resp BP Pulse Ox 97.5 F L 86 17 115/70 94 03/04/18 07:00 03/04/18 10:00 03/04/18 10:00 03/04/18 10:00 03/04/18 10:00 General appearance: Present: cooperative, A&O X 3, no acute distress, answers questions appropriately - Respiratory Respiratory exam: Present: CTAB. Absent: rales, rhonchi, wheezes - Cardiovascular Cardiovascular exam: Present: RRR. Absent: gallop, rubs, systolic murmur - GI/Abdominal GI/Abdominal exam: Present: distended (mild), normal bowel sounds, soft. Absent: firm, tenderness Results - Labs CBC & Chem 7: 03/04/18 04:00 03/04/18 04:00 Labs: Last Result Calcium 8.6 mg/dL (8.6-10.3) 03/04/18 04:00 Iron < 10 mcg/dL (50-170) L 03/02/18 06:04 % Saturation TNP 03/02/18 06:04 Transferrin 109 mg/dL (203-362) L 03/02/18 06:04 Ferritin 802 ng/mL (10-120) H 03/02/18 06:04 Troponin I 2.08 ng/mL (< 0.04) H* 03/03/18 01:15 Vitamin B12 > 1500 pg/mL (250-1100) H 03/02/18 06:04 Folate 10.0 ng/mL (3.0-16.0) 03/02/18 06:04 Peritoneal Appearance CLOUDY (Clear) 02/28/18 15:59 Peritoneal Volume 53.0 mL 02/28/18 15:59 Peritoneal RBC 0.002 M/mcL (0.000-0.002) 02/28/18 15:59 Periton Tot Nuc Cells 6653 TNC/mcL (0-300) H 02/28/18 15:59 Periton Band Neuts Test Not Performed 02/28/18 15:59 Periton Lymphocytes % 8.0 % 02/28/18 15:59 Periton Monocytes % 2.0 % 02/28/18 15:59 Periton Other Cells % Test Not Performed 02/28/18 15:59 Peritoneal Tot Protein 4.3 g/dL (No Ref Range) 02/28/18 15:59 Peritoneal LDH 128 Units/L (No Ref Range) 02/28/18 15:59 Peritoneal Glucose 113 mg/dL (No Ref Range) 02/28/18 15:59 Peritoneal Amylase < 10 Units/L (No Ref Range) 02/28/18 15:59 Entire Visit Hgb 8.0 g/dL (11.5-15.4) L 03/04/18 04:00 Hct 25.4 % (35.3-44.9) L 03/04/18 04:00 PT 15.9 Seconds (9.4-12.1) H 02/28/18 13:19 Ferritin 802 ng/mL (10-120) H 03/02/18 06:04 Total Bilirubin 0.5 mg/dL (0.3-1.0) 03/04/18 04:00 AST 47 Units/L (13-39) H 03/04/18 04:00 ALT 18 Units/L (7-52) 03/04/18 04:00 Ammonia < 10 mcmol/L (16-53) L 02/28/18 13:19 Folate 10.0 ng/mL (3.0-16.0) 03/02/18 06:04 - ABG ABG results: ABG ABG pH 7.43 pH Units (7.32-7.45) 03/03/18 04:45 ABG pCO2 28 mmHg (35-45) L 03/03/18 04:45 ABG pO2 148 mmHg (85-104) H 03/03/18 04:45 ABG O2 Saturation 99 % (95-98) H 03/03/18 04:45 PT/INR, D-dimer PT 15.9 Seconds (9.4-12.1) H 02/28/18 13:19 Consult Discharge Plan - Plan Referrals: Grupo Purcell DO [Primary Care Provider] - <Duke Hunt - Last Filed: 03/05/18 09:30> - Time Spent With Patient Total time spent is greater than 50% in coordination of care (as documented) at patient's floor/unit and/or counseling patient: - Constitutional Vitals: Temp Pulse Resp BP Pulse Ox 97.9 F 83 22 104/67 91 03/05/18 08:00 03/05/18 07:00 03/05/18 05:56 03/05/18 05:56 03/05/18 05:56 Results - Labs CBC & Chem 7: 03/05/18 03:27 03/05/18 03:27 Labs: Last Result Calcium 8.4 mg/dL (8.6-10.3) L 03/05/18 03:27 Iron < 10 mcg/dL (50-170) L 03/02/18 06:04 % Saturation TNP 03/02/18 06:04 Transferrin 109 mg/dL (203-362) L 03/02/18 06:04 Ferritin 802 ng/mL (10-120) H 03/02/18 06:04 Troponin I 2.08 ng/mL (< 0.04) H* 03/03/18 01:15 Vitamin B12 > 1500 pg/mL (250-1100) H 03/02/18 06:04 Folate 10.0 ng/mL (3.0-16.0) 03/02/18 06:04 Peritoneal Appearance CLOUDY (Clear) 02/28/18 15:59 Peritoneal Volume 53.0 mL 02/28/18 15:59 Peritoneal RBC 0.002 M/mcL (0.000-0.002) 02/28/18 15:59 Periton Tot Nuc Cells 6653 TNC/mcL (0-300) H 02/28/18 15:59 Periton Band Neuts Test Not Performed 02/28/18 15:59 Periton Lymphocytes % 8.0 % 02/28/18 15:59 Periton Monocytes % 2.0 % 02/28/18 15:59 Periton Other Cells % Test Not Performed 02/28/18 15:59 Peritoneal Tot Protein 4.3 g/dL (No Ref Range) 02/28/18 15:59 Peritoneal LDH 128 Units/L (No Ref Range) 02/28/18 15:59 Peritoneal Glucose 113 mg/dL (No Ref Range) 02/28/18 15:59 Peritoneal Amylase < 10 Units/L (No Ref Range) 02/28/18 15:59 Entire Visit Hgb 8.4 g/dL (11.5-15.4) L 03/05/18 03:27 Hct 26.7 % (35.3-44.9) L 03/05/18 03:27 PT 15.9 Seconds (9.4-12.1) H 02/28/18 13:19 Ferritin 802 ng/mL (10-120) H 03/02/18 06:04 Total Bilirubin 0.7 mg/dL (0.3-1.0) 03/05/18 03:27 AST 29 Units/L (13-39) 03/05/18 03:27 ALT 15 Units/L (7-52) 03/05/18 03:27 Ammonia < 10 mcmol/L (16-53) L 02/28/18 13:19 Folate 10.0 ng/mL (3.0-16.0) 03/02/18 06:04 - ABG ABG results: ABG ABG pH 7.43 pH Units (7.32-7.45) 03/03/18 04:45 ABG pCO2 28 mmHg (35-45) L 03/03/18 04:45 ABG pO2 148 mmHg (85-104) H 03/03/18 04:45 ABG O2 Saturation 99 % (95-98) H 03/03/18 04:45 PT/INR, D-dimer PT 15.9 Seconds (9.4-12.1) H 02/28/18 13:19 - Attending Attestation Patient developed an ME post cystoscopy procedure yesterday. The course of events are still being evaluated at this time. Her ejection fraction dropped to 25%and cardiology had initially planned a cardiac cath and possible stenting but, elected to wait for endoscopy prior to initiating antiplatelet therapy. Endoscopy is is being planned for today. Further recommendations after the endoscopic procedures. Assessment discussed the risks benefits and complications with the patient and family and obtained informed consent. Pathology pending I examined this patient and my medical decision-making was reviewed with the Resident Physician. I agree with the documented findings, disposition and treatment plan as described except to the extent set forth below.
--- NOTE | 2018-03-04 11:23 | Anesthesia Evaluation PreOp ---
<Enrike Mario - Last Filed: 03/04/18 11:30> Time of Encounter: 11:20 - Past History Planned Operation: EGD/Colonoscopy Cardiac History: Denies any Significant Hx ( coronary artery disease, diabetes, hyperlipidemia, hypertension Additional medical history: DIABETIC NEUROPATHY), HTN, Hyperlipidemia, Cardiac Surgery (2011) Pulmonary History: Denies Any Significant HX [employer] History: Other (peritoneal carcinomatosis, Diabetic Neuropathy) Other Medical History: Hepatic (Cirrhosis), Renal (Stage III CRD), Diabetes Type II Anesthesia History: No Prior Anesthetic Complications, Past Anesthesia (Cystoscopy, Stone extraction) : No Alcohol Use: none Drug use: none Medications and Allergies Acetaminophen [Tylenol Arthritis] 650 mg PO TID PRN 02/28/18 [History] Aspirin [Adult Aspirin] 81 mg PO DAILY 02/28/18 [History] Atorvastatin [Lipitor] 40 mg PO HS 02/28/18 [History] Cyanocobalamin (Vitamin B-12) [Vitamin B-12] 1,000 mcg PO DAILY 02/28/18 [History] Ferrous Sulfate [Iron] 325 mg PO DAILY 02/28/18 [History] GlipiZIDE [Glipizide ER] 10 mg PO DAILY 02/28/18 [History] Metoprolol Succinate [Toprol Xl] 50 mg PO DAILY 02/28/18 [History] Omeprazole [PriLOSEC] 20 mg PO DAILY 02/28/18 [History] Ondansetron HCl [Zofran] 8 mg PO Q8H PRN 02/28/18 [History] Pioglitazone HCl [Actos] 45 mg PO DAILY 02/28/18 [History] Potassium 99 mg PO DAILY 02/28/18 [History] Pramipexole Di-HCl [Pramipexole Dihydrochloride] 0.125 mg PO DAILY 02/28/18 [History] traZODone [TraZODone] 50 mg PO HS 02/28/18 [History] Allergy/AdvReac Type Severity Reaction Status Date / Time No Known Allergies Allergy Verified 09/02/15 12:42 - Meds/Allergy Pre-op Review Medications Reviewed: Yes Allergies Reviewed: Yes Beta Blockers on Current Med List: Yes If Beta Blockers taken, Date/Time (Last Dose taken): 16:00 03/03/2018 Anesthesia Results - Labs 03/04/18 04:00 03/04/18 04:00 Echo with Imaging Enhancement Agent Name: Nabila Cunningham Date of Study: 03/02/2018 Indications: Atrial Fibrillation Mild pulmonary hypertension. Left Ventricular Wall Motion: Rest Echo Findings The apex, apical inferior, mid inferior, apical anterior, mid anterior, apical septal, mid inferior septal, apical lateral, mid anterior lateral, mid anterior septal and mid inferior lateral thakkar were hypokinetic. All other wall segments showed normal motion. Findings: Study Quality * Technically adequate exam. ECG Findings * Sinus tachycardia. Left Ventricle * Mildly dilated left ventricle. * Indeterminate diastolic function. * LVEF 20-25%. - Imaging EKG: report reviewed (Sinus rhythm with sinus arrhythmia Leftward axis Nonspecific ST and T-wave changes) Anesthesia Exam O2 Sat Weight 80.6 kg O2 Sat by Pulse Oximetry 94 O2 Sat by Pulse Oximetry 95 O2 Sat by Pulse Oximetry 95 O2 Sat by Pulse Oximetry 96 O2 Sat by Pulse Oximetry 92 O2 Sat by Pulse Oximetry 93 O2 Sat by Pulse Oximetry 93 O2 Sat by Pulse Oximetry 92 O2 Sat by Pulse Oximetry 95 O2 Sat by Pulse Oximetry 95 O2 Sat by Pulse Oximetry 94 O2 Sat by Pulse Oximetry 94 O2 Sat by Pulse Oximetry 96 O2 Sat by Pulse Oximetry 96 O2 Sat by Pulse Oximetry 97 O2 Sat by Pulse Oximetry 95 O2 Sat by Pulse Oximetry 96 O2 Sat by Pulse Oximetry 96 O2 Sat by Pulse Oximetry 95 O2 Sat by Pulse Oximetry 95 O2 Sat by Pulse Oximetry 96 O2 Sat by Pulse Oximetry 96 Vital Signs Temp Pulse Resp BP Pulse Ox 98.4 F 88 18 124/77 95 02/28/18 10:58 02/28/18 10:58 02/28/18 10:58 02/28/18 10:58 02/28/18 10:58 Vital Signs/O2 Sat, Most Current Temp Pulse Resp BP Pulse Ox 97.5 F L 86 17 115/70 94 03/04/18 07:00 03/04/18 10:00 03/04/18 10:00 03/04/18 10:00 03/04/18 10:00 NPO (# of Hours): > 8 hrs Pain Scale: 0 Pain Scale Used: Numeric (1 - 10) - HEENT Pupil (Motor): Pupils equal, EOMI Mallampati: III Teeth: Poor dentition Oral Opening: Greater than 3 - [employer] LOC: Oriented [employer] Motor: Normal RUE, Normal LUE, Normal RLE, Normal LLE, Normal Face [employer] Sensory: Normal: RUE, LUE, RLE, LLE, Face - Cardiac Rhythm: Irregular Murmur: None JVD: No Carotid Bruit: No - Pulmonary Breath Sounds: bilateral Clear Respiratory Effort: Symmetrical - Additional Findings 1 unit PRBC ordered prior to surgery Anesthesia Assess/Plan ASA Score: 4 Modified [place] Scale for Level of Consciousness: Cooperative, oriented, and tranquil Anesthetic Plan: General Autologous Blood: Yes Monitoring Plan: Standard Monitors Recovery Plan: PACU <Dae Holloway - Last Filed: 03/04/18 13:22> Date of Encounter: 03/04/18 Anesthesia Results - Labs 03/04/18 04:00 03/04/18 04:00 Anesthesia Assess/Plan Recovery Plan: PACU (I assumed care of patient, chart reviewed and patient seen. Blood hanging.)
--- NOTE | 2018-03-04 11:32 | Cardiology Progress Note ---
Date of Encounter: 03/04/18 Time of Encounter: 11:31 Assessment and Plan (1) NSTEMI (non-ST elevated myocardial infarction) Current Visit: Yes Status: Acute Peak troponin 2.08. Reported exertional angina over the last year. TTE with significant drop in EF, previously normal, now 20-25%. Patient with GI bleed and downtrending hemoglobin. HGB 8.0 today. Discussed with GI. Plan for upper endoscopy today. If no acute findings, can proceed with LHC after. R/B/A discussed and pt agrees with this plan. If acute bleeding found on endoscopy, will postpone LHC. Continue to follow. No heparin gtt or ASA at this time given GI bleed/anemia. Stool occult positive. Continue Statin. Currently on scheduled IV BB. Plan to transition to PO. (2) Cardiomyopathy Current Visit: Yes Status: Acute EF previously normal, now reduced to 20-25%. NICMP vs ICMP. 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 Hx of CAD s/p CABG. Recommend LHC to further evaluate--pending endoscopy results. Plan to start PO BB and will start PO ACEi prior to d/c as long as renal function allows. Qualifiers: Cardiomyopathy type: unspecified Qualified Code(s): I42.9 - Cardiomyopathy, unspecified (3) CAD (coronary artery disease) Current Visit: Yes Status: Chronic Hx CAD s/p CABG in 2011. As above, plan for LHC. Timing depends on endoscopy findings. No ASA currently due to GI bleed. Continue Statin and scheduled IV lopressor with plans to transition to PO. Qualifiers: Coronary Disease-Associated Artery/Lesion type: [place] artery [place] vs. transplanted heart: [place] heart Associated angina: angina presence unspecified Qualified Code(s): I25.10 - Atherosclerotic heart disease of [place] coronary artery without angina pectoris Discussion w patient/family: The assessment and plan as outlined above was discussed with the patient and/or family members who expressed understanding and agreement. All questions were answered. Thank you for involving us in the care of your patient. Please call with any questions. I will discuss all the above with Dr. Silveira and make changes as necessary. Subjective Principal diagnosis: hypoxic respiratory failure Interval history: Pt denies chest pain currently. Plan for upper endoscopy today. Objective Vital Signs, Last 4 Hours Pulse Resp BP Pulse Ox 03/04/18 10:00 86 17 115/70 94 03/04/18 09:00 99 22 113/70 95 03/04/18 08:00 98 18 114/66 95 Vital Signs Temp Pulse Resp BP Pulse Ox 03/04/18 10:00 86 17 115/70 94 03/04/18 09:00 99 22 113/70 95 03/04/18 08:00 98 18 114/66 95 03/04/18 07:00 97.5 F L 112 18 126/67 96 03/04/18 06:00 94 18 108/58 92 03/04/18 05:00 97 20 107/62 93 03/04/18 04:00 97.5 F L 97 20 110/59 93 03/04/18 03:00 91 18 100/64 92 03/04/18 02:00 77 16 120/81 95 03/04/18 01:00 91 18 109/64 95 03/04/18 00:00 108 18 114/66 94 03/03/18 23:49 97.6 F 03/03/18 23:00 81 18 116/60 94 03/03/18 22:00 87 18 105/63 96 03/03/18 21:00 88 16 101/66 96 03/03/18 20:09 97.8 F 03/03/18 20:00 108 03/03/18 19:00 88 16 100/62 97 03/03/18 18:00 98 16 117/69 95 03/03/18 17:00 98 16 112/61 96 03/03/18 16:00 97.6 F 95 18 108/60 96 03/03/18 15:00 87 16 116/62 95 03/03/18 14:00 107 16 111/79 95 03/03/18 13:00 96 18 126/78 96 03/03/18 12:00 97.9 F 95 18 117/72 96 03/03/18 11:47 97.9 F Intake and Output 03/03/18 03/04/18 03/04/18 23:59 07:59 15:59 Intake Total 0 / 0 Output Total 350 / 350 475 / 475 Balance -350 / -350 -475 / -475 Intake: IV Fluids 0 / 0 FentaNYL (PF) 1,000 MCG In 0.9 0 / 0 % Sodium Chloride 80 ML @ 50 MCG/HR 5 mls/hr IVC CONT [facility] Rx #:[id number] Output: Catheter 350 / 350 475 / 475 Other: Weight 80.6 kg Blood Glucose* 151 General: Conversant, No Apparent Distress HEENT: Atraumatic, Normocephaly, Mucus Membranes Moist Neck: Normal carotid pulses Cardiac: Reg Rate and Rhythm, Normal S1 and S2, No Murmur Lungs: Normal Breath Sounds, No Wheeze, Rales, Rhonchi Neuro: Alert and responsive, No focal deficits noted Abdomen: Soft, Non-Tender Skin: No rashes noted on visualized skin Musculoskeletal: No Chest Wall Tenderness Extremities: No Clubbing, No Cyanosis, No Edema, Normal Pulses Results 03/04/18 04:00 03/04/18 04:00 Lab Results 03/04/18 03/04/18 04:00 04:00 WBC 12.8 H Hgb 8.0 L Hct 25.4 L Plt Count 404 H Sodium 136 Potassium 3.7 Chloride 105 Carbon Dioxide 20 L BUN 23 Creatinine 1.07 Glucose 138 H Calcium 8.6 Magnesium 1.7 Total Bilirubin 0.5 AST 47 H ALT 18 Alkaline Phosphatase 89 Active Medications Acetaminophen (Tylenol) 650 mg PO Q6HR PRN PRN Reason: Pain Stop: 09/02/18 09:41 Atorvastatin Calcium (Lipitor) 40 mg PO HS [facility] Stop: 08/30/18 21:01 Last Admin: 03/03/18 20:02 Dose: 40 mg Cyanocobalamin (Vitamin B12) 1,000 mcg PO DAILY [facility] Stop: 08/31/18 09:01 Last Admin: 03/04/18 08:19 Dose: Not Given Dextrose/Water (Dextrose 50% (Syg)) 25 ml IVP AD PRN PRN Reason: Hypoglycemia Stop: 09/01/18 16:58 Ferrous Sulfate (Ferrous Sulfate) 325 mg PO DAILY [facility] Stop: 08/31/18 09:01 Last Admin: 03/04/18 08:19 Dose: Not Given Glucagon (Glucagen) 1 mg IM ONCE PRN PRN Reason: Hypoglycemia Stop: 09/01/18 16:58 Glucose (Gluctose) 15 gm PO ONCE PRN PRN Reason: Hypoglycemia Stop: 09/01/18 16:58 Glucose (Gluctose) 30 gm PO ONCE PRN PRN Reason: Hypoglycemia Stop: 09/01/18 16:58 Heparin Sodium (Porcine) (Heparin) 5,000 unit SQ Q12HCO [facility] Stop: 09/02/18 12:01 Last Admin: 03/04/18 06:07 Dose: 5,000 unit Ceftriaxone Sodium 1,000 mg/ (Sterile Water) 10 mls @ 600 mls/hr IVP DAILY [facility] Stop: 09/01/18 09:01 Last Admin: 03/04/18 08:17 Dose: 600 mls/hr Dextrose (Dextrose 5%) 1,000 mls @ 100 mls/hr IVC .Q10H PRN PRN Reason: HYPOGLYCEMIA Stop: 09/01/18 16:58 Insulin Human Lispro (Humalog) 0 units SQ Q6HR [facility]; Protocol Stop: 09/01/18 18:01 Last Admin: 03/04/18 06:05 Dose: Not Given Metoprolol Tartrate (Lopressor) 5 mg IVP Q6HR [facility] Stop: 09/03/18 16:01 Multivitamins/Calcium (Thera M Plus) 1 tab PO DAILY [facility]; Protocol Stop: 08/31/18 14:46 Last Admin: 03/04/18 08:19 Dose: Not Given Naloxone HCl (Narcan) 0.4 mg IVP Q2MIN PRN PRN Reason: SEE COMMENTS Stop: 08/30/18 15:35 Omeprazole (Prilosec) 20 mg PO 0630 [facility]; Protocol Stop: 08/31/18 06:31 Last Admin: 03/04/18 06:07 Dose: 20 mg Oxycodone HCl (Oxycodone Oral Conc) 5 mg SL Q4HR PRN; Protocol PRN Reason: mild to moderate pain Stop: 08/30/18 20:01 Last Admin: 03/04/18 08:27 Dose: 5 mg Pramipexole Dihydrochloride (Mirapex) 0.125 mg PO DAILY [facility] Stop: 08/31/18 09:01 Last Admin: 03/04/18 08:19 Dose: Not Given Promethazine HCl (Phenergan) 12.5 mg IVP Q8HR PRN PRN Reason: Nausea And Vomiting Stop: 08/30/18 17:20 Trazodone HCl (Trazodone) 50 mg PO HS [facility] Stop: 08/30/18 21:01 Last Admin: 03/03/18 20:02 Dose: 50 mg - Imaging and Cardiology Echo: report reviewed - EKG Interpretation EKG results cardiology: other (12 hr tele AVG HR 96, SR) Consult Discharge Plan - Plan Referrals: Grupo Purcell DO [Primary Care Provider] -
[2018-03-04] MEDS ORDERED: 0.9 % Sodium Chloride 250 ML ONE (12:42)
--- NOTE | 2018-03-04 13:19 | Electrocardiograph Report ---
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
[2018-03-04] MEDS ORDERED: Propofol 500 MG/50 ML INFUS..BTL ONE (13:50)
--- NOTE | 2018-03-04 14:10 | Event Note ---
Date of Encounter: 03/04/18 Time of Encounter: 14:09 - Cardiology Event Note Received PRBC prior to upper endoscopy--not yet completed. Will make NPO after midnight and evaluate in AM if candidate for LHC pending endoscopy results.
[2018-03-04] MEDS ORDERED: *HR* Adenosine 6 MG/2 ML VIAL IVP ONE (14:18)
[2018-03-04] MEDS ORDERED: *HR* Propofol 200 MG/20 ML VIAL IVP ONE (14:59)
[2018-03-04] MEDS: *HR* Metoprolol 5 MG/5 ML VIAL IVP SCH ×3 (16:54→23:08)
--- NOTE | 2018-03-04 17:41 | Oncology Inp Progress Note ---
<Hardik Ding S - Last Filed: 03/05/18 08:06> Date of Encounter: 03/04/18 - Constitutional Vitals: Vital Signs Temp Pulse Resp BP Pulse Ox 03/05/18 05:56 76 22 104/67 91 03/05/18 05:00 78 10 111/60 93 03/05/18 04:00 78 18 110/62 94 03/05/18 03:55 98.4 F 03/05/18 03:00 77 10 108/53 96 03/05/18 02:00 90 22 120/72 92 03/05/18 00:52 76 10 123/73 96 03/05/18 00:00 76 14 123/65 95 03/04/18 22:53 81 03/04/18 22:52 85 10 121/66 97 03/04/18 22:00 85 12 129/76 96 03/04/18 20:57 94 100 117/60 94 03/04/18 20:00 81 12 101/65 95 03/04/18 19:22 90 96 03/04/18 19:15 97.8 F 03/04/18 19:00 90 18 116/62 96 03/04/18 18:00 90 20 103/62 96 03/04/18 17:00 84 20 134/72 94 03/04/18 16:00 102 18 133/70 93 03/04/18 14:15 95 18 116/58 97 03/04/18 13:53 97.9 F 99 12 118/70 95 03/04/18 13:42 97.9 F 94 17 117/69 96 03/04/18 13:00 97.9 F 94 17 117/69 96 03/04/18 12:00 92 18 117/64 96 03/04/18 11:00 90 14 115/70 96 03/04/18 10:00 86 17 115/70 94 03/04/18 09:00 99 22 113/70 95 Intake and Output 03/04/18 03/05/18 03/05/18 16:59 00:59 08:59 Intake Total 0 / 0 300 / 300 Output Total 300 / 300 250 / 250 425 / 425 Balance -300 / -300 50 / 50 -425 / -425 Intake: IV Fluids 100 / 100 Cardizem 50 MG In 0.9 % Sodium 100 / 100 Chloride 40 ML @ 5 MG/HR 5 mls/ hr IVC .Q10H [facility] Rx#:[id number] Blood Product 0 / 0 200 / 200 Rbcs Leuko Poor As-3 2nd Unit 0 / 0 200 / 200 [id number] Output: Catheter 300 / 300 250 / 250 425 / 425 Other: Weight 77.2 kg Patient Weight 03/06/18 00:59 Weight 77.2 kg Oncology: Obj Data - Labs CBC & Chem 7: 03/05/18 03:27 03/05/18 03:27 Labs: Laboratory Results - last 24 hr 03/01/18 03/04/18 03/04/18 15:59 12:15 12:38 WBC RBC Hgb Hct MCV MCH MCHC RDW Plt Count MPV Immature Gran % Seg Neutrophils % Lymphocytes % Monocytes % Eosinophils % Basophils % Neutrophils # Lymphocytes # Monocytes # Eosinophils # Basophils # Nucleated RBCs/100 WBC Sodium Potassium Chloride Carbon Dioxide BUN Creatinine Est GFR ( Amer) Est GFR (Non-Af Amer) BUN/Creatinine Ratio Glucose POC Glucose 133 H Calculated Osmolality Calcium Phosphorus Magnesium Total Bilirubin AST ALT Alkaline Phosphatase Serum Total Protein Albumin Globulin Albumin/Globulin Ratio Fluid Albumin Source ASCITES Fluid Albumin 1890 Blood Type O POSITIVE Antibody Screen NEGATIVE Crossmatch See Detail 03/04/18 03/04/18 03/05/18 18:22 23:19 03:27 WBC 9.8 RBC 3.04 L Hgb 8.4 L Hct 26.7 L MCV 87.8 MCH 27.6 L MCHC 31.5 L RDW 15.3 H Plt Count 329 MPV 9.5 Immature Gran % 1.9 Seg Neutrophils % 74.7 Lymphocytes % 10.6 Monocytes % 9.4 Eosinophils % 3.1 Basophils % 0.3 Neutrophils # 7.3 Lymphocytes # 1.0 Monocytes # 0.9 Eosinophils # 0.3 Basophils # 0.0 Nucleated RBCs/100 WBC 0.2 H Sodium Potassium Chloride Carbon Dioxide BUN Creatinine Est GFR ( Amer) Est GFR (Non-Af Amer) BUN/Creatinine Ratio Glucose POC Glucose 134 H 124 H Calculated Osmolality Calcium Phosphorus Magnesium Total Bilirubin AST ALT Alkaline Phosphatase Serum Total Protein Albumin Globulin Albumin/Globulin Ratio Fluid Albumin Source Fluid Albumin Blood Type Antibody Screen Crossmatch 03/05/18 03/05/18 03:27 05:36 WBC RBC Hgb Hct MCV MCH MCHC RDW Plt Count MPV Immature Gran % Seg Neutrophils % Lymphocytes % Monocytes % Eosinophils % Basophils % Neutrophils # Lymphocytes # Monocytes # Eosinophils # Basophils # Nucleated RBCs/100 WBC Sodium 134 L Potassium 3.6 Chloride 101 Carbon Dioxide 21 L BUN 19 Creatinine 0.89 Est GFR ( Amer) > 60 Est GFR (Non-Af Amer) > 60 BUN/Creatinine Ratio 21 Glucose 123 H POC Glucose 123 H Calculated Osmolality 282 Calcium 8.4 L Phosphorus 2.8 Magnesium 1.7 Total Bilirubin 0.7 AST 29 ALT 15 Alkaline Phosphatase 84 Serum Total Protein 5.7 L Albumin 2.4 L Globulin 3.3 Albumin/Globulin Ratio 0.7 L Fluid Albumin Source Fluid Albumin Blood Type Antibody Screen Crossmatch - ABG Interpretation ABG results: ABG ABG pH 7.43 pH Units (7.32-7.45) 03/03/18 04:45 ABG pCO2 28 mmHg (35-45) L 03/03/18 04:45 ABG pO2 148 mmHg (85-104) H 03/03/18 04:45 ABG O2 Saturation 99 % (95-98) H 03/03/18 04:45 PT/INR, D-dimer PT 15.9 Seconds (9.4-12.1) H 02/28/18 13:19 Consult Discharge Plan - Plan Referrals: Grupo Purcell DO [Primary Care Provider] - Inpatient Charges Provider: Dr. Tamar Ding Follow up - Inpatient: [id number] - Attending Attestation I examined this patient and my medical decision-making was reviewed with the Advanced Practice Nurse. I agree with the documented findings, disposition and treatment plan as described except to the extent set forth below. I reviewed her pathology. 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 The tumor is CK 20 and CDX2 positive, CK 7 negative consistent with this diagnosis. Given her iron deficiency and clinical presentation, this fits clinically as well. This was discussed with the patient and her extended family today. We discussed expectations moving forward as well as prognosis. Without treatment, I expect her survival to be a matter of 3-6 months. With treatment, this may be extended to 12-18 months, possibly longer, depending upon response. Given her presentation multiple comorbid issues, I do voice concern over our ability to administer adequate therapy. The biggest concern is the presence of peritoneal disease and the risk of disrupted bowel motility/obstruction. Per report, the symptoms have been minimal which is encouraging. I think she would be a good candidate for systemic chemotherapy once her other medical issues have been addressed. From an oncologic perspective, would minimize cardiac interventions that would require anticoagulation/antiplatelet agents secondary to bleeding history. There is no need for acute intervention from an oncologic perspective while hospitalized. She and her care team are to focus on nutrition, ambulation as well as optimization of her cardiac status moving forward. I will arrange follow-up in my office in 2 weeks' time to discuss therapy moving forward. All questions answered to best my ability. I spent 40 minutes in [id number] indication with this patient and her family today. <ClaireBonnie L - Last Filed: 03/05/18 09:41> Time of Encounter: 15:00 (1) Anemia Current Visit: Yes Status: Acute Assessment and plan: Normocytic, hypochromic anemia on presentation with hgb 7.6 Stool occult blood positive 02/28 GI consultation with plan for EGD/Colonoscopy (on hold secondary to admission with ICU) Folate/B12 are replete, LDH/Indirect bili normal SPEP no monoclonal proteins, findings suggestive of inflammatory response Iron <10, Ferritin 802 (acute phase reactant) Thrombocytosis likely secondary to PAULY Previously known patient to Dr. Arias for functional iron deficiency (with normal ferritin) requiring Injectafer in past S/P 2 units PRBC Plan: Hgb slowly downtrending S/P EGD today which was essentially normal and no stigmata of bleeding S/P Colonoscopy today which proved to be a difficult procedure secondary to markedly tortuous colon, reach the hepatic flexure and unable to scope further, no mass or bleeding in visualized areas Her PAULY is likely explained by her suspected carcinoma of colon or small bowel as discussed below Qualifiers: Anemia type: unspecified type Qualified Code(s): D64.9 - Anemia, u nspecified (2) Peritoneal carcinomatosis Current Visit: Yes Status: Suspected Assessment and plan: CT abdomen/pelvis reveals mesenteric nodularity as well as a 2.2 cm nodular mesenteric mass with several smaller nodular masses with small volume ascites. She underwent core needle biopsy of omental caking and paracentesis (with removal of 2750 mL of straw-colored ascites) on 03/01/2018. 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 The general history and prognosis of stage IV GI malignancy were discussed with patient and family today. Ms. Cunningham wishes to pursue treatment options following her road to recovery and rehabilitation We encouraged continued focus on maintaining strength and nutrition as she works towards rehab Risk for obstruction remains of concern and symptoms should be watched closely From an oncologic perspective, would recommend cardiac interventions be minimized if possible in regards to her risk for bleeding with an ticoagulation/antiplatelet therapy Check CEA Follow up in 1-[address] Ding will be arranged in the outpatient setting to discuss systemic chemotherapy options. We will otherwise sign off at this time, please feel free to contact for any further questions or concerns. (3) Cirrhosis of liver Current Visit: Yes Status: Chronic Assessment and plan: GI following Workup initiated in recent outpatient consultation: Hepatitis negative ROXY, ANCA, AMA were negative AFP pending EGD as above Qualifiers: Hepatic cirrhosis type: unspecified hepatic cirrhosis Ascites presence: with ascites Qualified Code(s): K74.60 - Unspecified cirrhosis of liver; R18.8 - Other ascites Oncology: Subj Interval history: Ms. Cunningham has recently returned from endoscopy today. Her family are at bedside. She reports some abdominal discomfort, no nausea, vomiting or diarrhea. We discussed endscopy and pathology results at bedside as detailed in assessment and plan - Constitutional Vitals: Vital Signs Temp Pulse Resp BP Pulse Ox 03/04/18 17:00 84 20 134/72 94 03/04/18 16:00 102 18 133/70 93 03/04/18 14:15 95 18 116/58 97 03/04/18 13:53 97.9 F 99 12 118/70 95 03/04/18 13:42 97.9 F 94 17 117/69 96 03/04/18 13:00 97.9 F 94 17 117/69 96 03/04/18 12:00 92 18 117/64 96 03/04/18 11:00 90 14 115/70 96 03/04/18 10:00 86 17 115/70 94 03/04/18 09:00 99 22 113/70 95 03/04/18 08:00 98 18 114/66 95 03/04/18 07:00 97.5 F L 112 18 126/67 96 03/04/18 06:00 94 18 108/58 92 03/04/18 05:00 97 20 107/62 93 03/04/18 04:00 97.5 F L 97 20 110/59 93 03/04/18 03:00 91 18 100/64 92 03/04/18 02:00 77 16 120/81 95 03/04/18 01:00 91 18 109/64 95 03/04/18 00:00 108 18 114/66 94 03/03/18 23:49 97.6 F 03/03/18 23:00 81 18 116/60 94 03/03/18 22:00 87 18 105/63 96 03/03/18 21:00 88 16 101/66 96 03/03/18 20:09 97.8 F 03/03/18 20:00 108 03/03/18 19:00 88 16 100/62 97 03/03/18 18:00 98 16 117/69 95 Intake and Output 03/04/18 03/04/18 03/04/18 07:59 15:59 23:59 Intake Total 0 / 0 200 / 200 Output Total 475 / 475 300 / 300 Balance -475 / -475 -300 / -300 200 / 200 Intake: Blood Product 0 / 0 200 / 200 Rbcs Leuko Poor As-3 2nd Unit 0 / 0 200 / 200 [id number] Output: Catheter 475 / 475 300 / 300 General appearance: cooperative, no acute distress, no febrile - Head Head exam: Present: atraumatic - ENT ENT exam: Present: mucous membranes dry - Respiratory Respiratory exam: Present: CTAB. Absent: respiratory distress - Cardiovascular Cardiovascular exam: Present: RRR, +S1, +S2 - GI/Abdominal GI/Abdominal exam: Present: normal bowel sounds, soft, tenderness - Extremities Exam Extremities exam: Absent: calf tenderness - Neurological Exam Neurological exam: Present: alert, oriented X3, no focal deficits, strengths equal and symetr throughout - Psychiatric Psychiatric exam: Present: normal affect, normal mood - Skin Skin exam: Present: dry, intact, pallor, warm Oncology: Obj Data - Labs CBC & Chem 7: 03/05/18 03:27 03/05/18 03:27 - ABG Interpretation ABG results: ABG ABG pH 7.43 pH Units (7.32-7.45) 03/03/18 04:45 ABG pCO2 28 mmHg (35-45) L 03/03/18 04:45 ABG pO2 148 mmHg (85-104) H 03/03/18 04:45 ABG O2 Saturation 99 % (95-98) H 03/03/18 04:45 PT/INR, D-dimer PT 15.9 Seconds (9.4-12.1) H 02/28/18 13:19
[2018-03-04] MEDS: traZODone 50 MG TABLET PO SCH (19:34)
[2018-03-05] MEDS: OXYCODONE Oral CONC 10 MG/0.5 ML ORAL.SYG SL PRN ×3 (03:21→13:38)
[2018-03-05 03:40] LABS: Basophils % 0.3 %; Eosinophils # 0.3 K/mcL (0.0-0.6); Eosinophils % 3.1 %; Hematocrit 26.7 % (35.3-44.9); Hemoglobin 8.4 g/dL (11.5-15.4); Immature Granulocytes % 1.9 % (0-4); Lymphocytes % 10.6 %; Mean Corpuscular HGB Conc 31.5 g/dL (31.6-35.5); Mean Corpuscular Hemoglobin 27.6 pg (28.0-33.3); Mean Corpuscular Volume 87.8 fL (83.0-100.0); Mean Platelet Volume 9.5 fL (9.4-12.4); Monocytes # 0.9 K/mcL (0.0-1.3); Monocytes % 9.4 %; Neutrophils # 7.3 K/mcL (1.6-8.9); Nucleated Red Blood Cells 0.2 /100 WBC (0); Platelet Count 329 K/mcL (140-400); Red Blood Count 3.04 M/mcL (3.82-4.97); Red Cell Distribution Width 15.3 % (11.5-14.5); Segmented Neutrophils % 74.7 %
[2018-03-05 03:59] LABS: Alanine Aminotransferase 15 Units/L (7-52); Albumin 2.4 g/dL (3.5-5.7); Albumin/Globulin Ratio 0.7 (1.1-2.2); Alkaline Phosphatase 84 Units/L (34-104); Aspartate Amino Transferase 29 Units/L (13-39); BUN/Creatinine Ratio 21 (6-26); Bilirubin,Total 0.7 mg/dL (0.3-1.0); Blood Urea Nitrogen 19 mg/dL (8-23); Calcium 8.4 mg/dL (8.6-10.3); Carbon Dioxide 21 mEq/L (23-29); Chloride 101 mEq/L (98-107); Globulin 3.3 g/dL (2.4-3.5); Glucose 123 mg/dL (70-105); Magnesium 1.7 mg/dL (1.6-2.6); Osmolality,Calculated 282 (280-300); Phosphorous 2.8 mg/dL (2.7-4.5); Potassium 3.6 mEq/L (3.5-5.1); Sodium 134 mEq/L (136-145); Total Protein 5.7 g/dL (6.4-8.9); eGFR For Non-African Americans > 60 (> 60)
[2018-03-05] MEDS: Insulin LISPRO 300 UNITS/3 ML VIAL SQ SCH ×3 (05:36→18:23)
[2018-03-05] MEDS: *HR* Metoprolol 5 MG/5 ML VIAL IVP SCH ×2 (05:36→15:20)
[2018-03-05] MEDS: *HR* Heparin 5,000 UNIT/ML VIAL SQ SCH ×2 (05:36→18:24)
[2018-03-05] MEDS: Cyanocobalamin (B-12) 1,000 MCG TABLET PO SCH (07:50)
[2018-03-05] MEDS: Multivit/Ca/Min/Fe/FA 1 TAB TABLET PO SCH (07:50)
--- NOTE | 2018-03-05 09:11 | Pulmonology Progress Note ---
<Goran Ely W - Last Filed: 03/05/18 15:24> Date of Encounter: 03/05/18 Time of Encounter: 09:06 Assessment and Plan (1) NSTEMI (non-ST elevated myocardial infarction) Current Visit: Yes Status: Acute Elevated troponins with exertional angina. ECHO resulted in EF 20-25% Cardiology consulted appreciate recs; conservative managment at this time transfer to hospital service (2) Respiratory failure with hypoxia Current Visit: Yes Status: Acute Etiology unclear at this time likely a component of systolic CHF On room air now Sat 91% Continue to monitor Qualifiers: Chronicity: acute Qualified Code(s): J96.01 - Acute respiratory failure with hypoxia (3) Afib Current Visit: Yes Status: Acute Currently in sinus rhythm ECHO found EF of 25-30% extensive coronary artery disease with some ischemic changes in the EKG troponins elevated concern for NSTEMI now she has supraventricular arrhythmias which degenerates to atrial fibrillation lopressor was given in addition to LASIX one time dose however patient developed hypotension and both were removed as well as fentanyl Hypotensive etiology unknown questioning sedative vs lopressor and/or lasix Patient developed SVT after colonscopy and egd. was given adenosine twice. 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 Oncology had discussion with patient and family last night. EGD/Colonscopy with no mass found, but unable to proceed past hepatic flexure. Patient desires to proceed with palliative chemotherapy. Cardiology will be seeing patient and do not plan on heart cath at this time, conservative management only. (5) Peritoneal carcinomatosis Current Visit: Yes Status: Suspected CT abdomen/pelvis reveals mesenteric nodularity as well as a 2.2 cm nodular mesenteric mass with several smaller nodular masses with small volume ascites. She underwent core needle biopsy of omental caking and paracentesis (with removal of 2750 mL of straw-colored ascites) on 03/01/2018. Final pathology is pending Oncology consulted appreciate recs further workup recommended pending cardio/pulm stability palliative consulted appreciate recs (6) Systolic CHF Current Visit: Yes Status: Acute ECHO found reduced EF of 20-25% Patient has cumulative positive fluid balance of 6 L Patient has only received one does of lasix but became hypotensive after. Unclear if it was due to lasix or labetolol or other etiology. cardiology consulted appreciate recs metoprolol 5mg q6 Qualifiers: Heart failure chronicity: acute Qualified Code(s): I50.21 - Acute systolic (congestive) heart failure (7) Anemia Current Visit: Yes Status: Acute Normocytic, hypochromic anemia on presentation with hgb 7.6 Stool occult blood positive 02/28 GI consultation EGD/Colonoscopy limitied view but no bleeding noted heme/onc consulted appreciate recs Patient on home ferrous sulfate Qualifiers: Anemia type: unspecified type Qualified Code(s): D64.9 - Anemia, unspecified (8) UTI (urinary tract infection) Current Visit: Yes Status: Resolved E. coli cultured stone removed by urology with ureteral stent placement Stop rocephin Qualifiers: Urinary tract infection type: acute cystitis Hematuria presence: without hematuria Qualified Code(s): N30.00 - Acute cystitis without hematuria (9) CAD (coronary artery disease) Current Visit: Yes Status: Chronic History of CAGB in 2011 cardio consulted appreciate recs Cardiology cath today plan as above Qualifiers: Coronary Disease-Associated Artery/Lesion type: [place] artery [place] vs. transplanted heart: [place] heart Associated angina: angina presence unspecified Qualified Code(s): I25.10 - Atherosclerotic heart disease of [place] coronary artery without angina pectoris (10) Hematuria, gross Current Visit: Yes Status: Acute per nursing report hematuria was noted Patient post op day 2 stone removal and ureteral stent placment flush bear Retroperitoneal US (11) CKD (chronic kidney disease) stage 3, GFR 30-59 ml/min Current Visit: Yes Status: Chronic chronic creatinine 0.89 (12) Abdominal pain Current Visit: Yes Status: Acute Peritoneal carcinomatosis recent paracentesis Oxycodone SL PRN q6 Qualifiers: Abdominal location: generalized Qualified Code(s): R10.84 - Generalized abdominal pain (13) Cirrhosis of liver Current Visit: Yes Status: Chronic Based on CT scan findings patient has cirrhosis of the liver. Will treat supportively. Hepatitis viral screening negative GI consulted appreciate recs Qualifiers: Hepatic cirrhosis type: unspecified hepatic cirrhosis Ascites presence: w ith ascites Qualified Code(s): K74.60 - Unspecified cirrhosis of liver; R18.8 - Other ascites (14) Diabetes mellitus Current Visit: Yes Status: Chronic chronic currently npo continue to monitor SSI Qualifiers: Diabetes mellitus type: type 2 Diabetes mellitus mcc insulin use: unspecified mcc insulin use status Diabetes mellitus complication status: with kidney complications Diabetes mellitus complication detail: with chronic kidney disease Chronic kidney disease stage: stage 3 (moderate) Qualified Code(s): E11.22 - Type 2 diabetes mellitus with diabetic chronic kidney disease; N18.3 - Chronic kidney disease, stage 3 (moderate) (15) Essential hypertension Current Visit: Yes Status: Chronic on metoprolol at home on diltaizem drip (16) DVT prophylaxis Current Visit: Yes Status: Acute Heparin sq Subjective Principal diagnosis: hypoxic respiratory failure Interval history: Patient was a hospital patient who was admitted for peritoneal carcinomatosis with abdominal pain. Patient underwent colonoscopy/EGD yesterday unable to obtain full view of colon. No bleeding masses noted. stomach biopsies pending. Omental biopsy pending. conservative management from cardiology's perspective. Patient started on cardizeorm drip after developing SVT discontinued. doing well. to be transferred to step down unit today. Objective PUL Vital signs: Last Vital Signs Temp 97.9 F 03/05/18 08:00 Pulse 83 03/05/18 07:00 Resp 22 03/05/18 05:56 BP 104/67 03/05/18 05:56 Pulse Ox 91 03/05/18 05:56 General appearance: no acute distress, asleep Eyes: nonicteric Effort: normal Cardiovascular: regular rate and rhythm Gastrointestinal: normoactive bowel sounds, soft, tender Integumentary: normal normal mental status mood appropriate, affect normal Results - Laboratory Findings CBC and BMP: 03/05/18 03:27 03/05/18 03:27 ABG ABG pH 7.43 pH Units (7.32-7.45) 03/03/18 04:45 ABG pCO2 28 mmHg (35-45) L 03/03/18 04:45 ABG pO2 148 mmHg (85-104) H 03/03/18 04:45 ABG O2 Saturation 99 % (95-98) H 03/03/18 04:45 PT/INR, D-dimer PT 15.9 Seconds (9.4-12.1) H 02/28/18 13:19 Abnormal lab findings: Abnormal lab results RBC 3.04 M/mcL (3.82-4.97) L 03/05/18 03:27 Hgb 8.4 g/dL (11.5-15.4) L 03/05/18 03:27 Hct 26.7 % (35.3-44.9) L 03/05/18 03:27 MCH 27.6 pg (28.0-33.3) L 03/05/18 03:27 MCHC 31.5 g/dL (31.6-35.5) L 03/05/18 03:27 RDW 15.3 % (11.5-14.5) H 03/05/18 03:27 Nucleated RBCs/100 WBC 0.2 /100 WBC (0) H 03/05/18 03:27 PT 15.9 Seconds (9.4-12.1) H 02/28/18 13:19 ABG pCO2 28 mmHg (35-45) L 03/03/18 04:45 ABG pO2 148 mmHg (85-104) H 03/03/18 04:45 ABG HCO3 19 mEq/L (21-27) L 03/03/18 04:45 ABG Total CO2 19 mEq/L (20-26) L 03/03/18 04:45 ABG O2 Saturation 99 % (95-98) H 03/03/18 04:45 ABG Base Excess -5 mEq/L (-2 to 3) L 03/03/18 04:45 ABG Hematocrit 29.0 % (35.3-44.9) L 03/02/18 13:09 Potassium 3.4 mEq/L (3.5-5.3) L 03/02/18 13:09 Glucose 200 mg/dL (60-95) H 03/02/18 13:09 Sodium 134 mEq/L (136-145) L 03/05/18 03:27 Carbon Dioxide 21 mEq/L (23-29) L 03/05/18 03:27 Glucose 123 mg/dL (70-105) H 03/05/18 03:27 POC Glucose 123 mg/dL (70-99) H 03/05/18 05:36 Calcium 8.4 mg/dL (8.6-10.3) L 03/05/18 03:27 Iron < 10 mcg/dL (50-170) L 03/02/18 06:04 Transferrin 109 mg/dL (203-362) L 03/02/18 06:04 Ferritin 802 ng/mL (10-120) H 03/02/18 06:04 Ammonia < 10 mcmol/L (16-53) L 02/28/18 13:19 Lactate Dehydrogenase 113 Units/L (140-271) L 03/01/18 05:21 Troponin I 2.08 ng/mL (< 0.04) H* 03/03/18 01:15 B-Natriuretic Peptide 188 pg/mL (Less than 100) H 03/02/18 16:06 Serum Total Protein 5.7 g/dL (6.4-8.9) L 03/05/18 03:27 Albumin 2.4 g/dL (3.5-5.7) L 03/05/18 03:27 Albumin/Globulin Ratio 0.7 (1.1-2.2) L 03/05/18 03:27 Vitamin B12 > 1500 pg/mL (250-1100) H 03/02/18 06:04 Ur Specimen Adequacy See below A 03/04/18 04:00 Urine Clarity Cloudy (Clear) A 03/04/18 04:00 Urine Protein 100 mg/dL (Neg-Trace) H 03/04/18 04:00 Urine Ketones 15 mg/dL (Negative) H 03/04/18 04:00 Urine Blood Large (Negative) H 03/04/18 04:00 Ur Leukocyte Esterase Moderate (Negative) H 03/04/18 04:00 Urine Microscopic WBC 5-15 per hpf (0-3) H 02/28/18 13:29 Urine Bacteria Many per hpf (None-Few) H 02/28/18 13:29 Ur Culture Indicated? YES (NO) A 03/04/18 04:00 Periton Tot Nuc Cells 6653 TNC/mcL (0-300) H 02/28/18 15:59 Stool Occult Bld Scrn Positive (Negative) A 02/28/18 13:36 - Microbiology Findings Microbiology Findings: Microbiology, Last 48 Hours 03/04/18 04:00 Urine Culture - Final Urine,Clean Catch No growth. 03/01/18 15:59 Body Fluid Culture - Preliminary Peritoneal Fluid - Clinical Findings Intake & Output: Intake & Output 03/04/18 03/05/18 03/05/18 23:59 07:59 15:59 Intake Total 300 / 300 Output Total 250 / 250 425 / 425 200 / 200 Balance 50 / 50 -425 / -425 -200 / -200 Weight 77.2 kg Consult Discharge Plan - Plan Referrals: Grupo Purcell DO [Primary Care Provider] - <Sergei Chacon - Last Filed: 03/05/18 21:27> Objective PUL Vital signs: Last Vital Signs Temp 98.1 F 03/05/18 17:30 Pulse 98 03/05/18 14:00 Resp 18 03/05/18 14:00 BP 125/69 03/05/18 14:00 Pulse Ox 90 03/05/18 14:00 Results - Laboratory Findings CBC and BMP: 03/05/18 03:27 03/05/18 03:27 ABG ABG pH 7.43 pH Units (7.32-7.45) 03/03/18 04:45 ABG pCO2 28 mmHg (35-45) L 03/03/18 04:45 ABG pO2 148 mmHg (85-104) H 03/03/18 04:45 ABG O2 Saturation 99 % (95-98) H 03/03/18 04:45 PT/INR, D-dimer PT 15.9 Seconds (9.4-12.1) H 02/28/18 13:19 Abnormal lab findings: Abnormal lab results RBC 3.04 M/mcL (3.82-4.97) L 03/05/18 03:27 Hgb 8.4 g/dL (11.5-15.4) L 03/05/18 03:27 Hct 26.7 % (35.3-44.9) L 03/05/18 03:27 MCH 27.6 pg (28.0-33.3) L 03/05/18 03:27 MCHC 31.5 g/dL (31.6-35.5) L 03/05/18 03:27 RDW 15.3 % (11.5-14.5) H 03/05/18 03:27 Nucleated RBCs/100 WBC 0.2 /100 WBC (0) H 03/05/18 03:27 PT 15.9 Seconds (9.4-12.1) H 02/28/18 13:19 ABG pCO2 28 mmHg (35-45) L 03/03/18 04:45 ABG pO2 148 mmHg (85-104) H 03/03/18 04:45 ABG HCO3 19 mEq/L (21-27) L 03/03/18 04:45 ABG Total CO2 19 mEq/L (20-26) L 03/03/18 04:45 ABG O2 Saturation 99 % (95-98) H 03/03/18 04:45 ABG Base Excess -5 mEq/L (-2 to 3) L 03/03/18 04:45 ABG Hematocrit 29.0 % (35.3-44.9) L 03/02/18 13:09 Potassium 3.4 mEq/L (3.5-5.3) L 03/02/18 13:09 Glucose 200 mg/dL (60-95) H 03/02/18 13:09 Sodium 134 mEq/L (136-145) L 03/05/18 03:27 Carbon Dioxide 21 mEq/L (23-29) L 03/05/18 03:27 Glucose 123 mg/dL (70-105) H 03/05/18 03:27 POC Glucose 141 mg/dL (70-99) H 03/05/18 17:04 Calcium 8.4 mg/dL (8.6-10.3) L 03/05/18 03:27 Iron < 10 mcg/dL (50-170) L 03/02/18 06:04 Transferrin 109 mg/dL (203-362) L 03/02/18 06:04 Ferritin 802 ng/mL (10-120) H 03/02/18 06:04 Ammonia < 10 mcmol/L (16-53) L 02/28/18 13:19 Lactate Dehydrogenase 113 Units/L (140-271) L 03/01/18 05:21 Troponin I 2.08 ng/mL (< 0.04) H* 03/03/18 01:15 B-Natriuretic Peptide 188 pg/mL (Less than 100) H 03/02/18 16:06 Serum Total Protein 5.7 g/dL (6.4-8.9) L 03/05/18 03:27 Albumin 2.4 g/dL (3.5-5.7) L 03/05/18 03:27 Albumin/Globulin Ratio 0.7 (1.1-2.2) L 03/05/18 03:27 Vitamin B12 > 1500 pg/mL (250-1100) H 03/02/18 06:04 Ur Specimen Adequacy See below A 03/04/18 04:00 Urine Clarity Cloudy (Clear) A 03/04/18 04:00 Urine Protein 100 mg/dL (Neg-Trace) H 03/04/18 04:00 Urine Ketones 15 mg/dL (Negative) H 03/04/18 04:00 Urine Blood Large (Negative) H 03/04/18 04:00 Ur Leukocyte Esterase Moderate (Negative) H 03/04/18 04:00 Urine Microscopic WBC 5-15 per hpf (0-3) H 02/28/18 13:29 Urine Bacteria Many per hpf (None-Few) H 02/28/18 13:29 Ur Culture Indicated? YES (NO) A 03/04/18 04:00 Periton Tot Nuc Cells 6653 TNC/mcL (0-300) H 02/28/18 15:59 Stool Occult Bld Scrn Positive (Negative) A 02/28/18 13:36 - Microbiology Findings Microbiology Findings: Microbiology, Last 48 Hours 02/28/18 13:19 Blood Culture - Final Peripheral Venipuncture No growth. Final report. 02/28/18 13:11 Blood Culture - Final Peripheral Venipuncture No growth. Final report. 03/01/18 15:59 Body Fluid Culture - Final Peritoneal Fluid 03/04/18 04:00 Urine Culture - Final Urine,Clean Catch No growth. - Clinical Findings Intake & Output: Intake & Output 03/05/18 03/05/18 03/05/18 07:59 15:59 23:59 Intake Total Output Total 425 / 425 425 / 425 400 / 400 Balance -425 / -425 -400 / -400 -400 / -400 Weight 77.2 kg - Attending Attestation - Attending Attestation I saw and evaluated this patient and my medical decision-making was reviewed with the Resident Physician. I agree with the documented findings, disposition and treatment plan as described except to the extent set forth below. We independently had [id number] contact with the patient Patient seen and examined at bedside Labs, radiology, chart personally reviewed. Management was reviewed during multidisciplinary critical care rounds. 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 Pulm: Patient has acceptable oxygenation and ventilation to continue nasal cannula BiPAP if needed. Cards: Patient has extensive coronary artery disease with some ischemic changes in the EKG trops were elevated with ECHO shows systolic heart failure patient will need cardiac catheterization. Spoke with because of her extensive metastatic disease he doesnt want to do cardiac catheterization FEN-GI: Advance diet as tolerated upper GI did not show any evidence of bleeding colonoscopy looks like she has colonic primary cancer which has spread to the peritoneum causing peritoneal carcinomatosis Renal: Labs and output reviewed to continue diuresis as tolerated , patient had obstructing right ureteral calculus supported by J stent. ID: Patient has UTI growing Escherichia coli sensitive to ceftriaxone. Heme/Onc: Patient has peritoneal carcinomatosis had omental biopsy showed adenocarcinoma Endo: Glucose Monitored Integ/MSK: Skin Care per routine ICU Nursing Protocol to prevent ulcers. Lines: All lines examined without evidence of infection : Dispo: Patient can be transferred to medical telemetry CODE:Full Code
--- NOTE | 2018-03-05 11:14 | Palliative Progress Note ---
Date of Encounter: 03/05/18 Time of Encounter: 13:00 - Assessment and plan (1) Abdominal pain Current Visit: Yes Status: Acute Assessment and plan: Continues with Oxycodone for pain. Utilized x5 last 24 hours. Patient states that this is not helping as much, and not lasting as long, and she is still quite uncomfortable. Will increase dose to 10mg and see if she gets more relief. Monitor Qualifiers: Abdominal location: generalized Qualified Code(s): R10.84 - Generalized abdominal pain (2) Goals of care, counseling/discussion Current Visit: Yes Status: Acute Assessment and plan: Discussed with pt/son/ at bedside. Oncology has met with them and patient at this time desiring to proceed with palliative chemotherapy. They are aware that she likely has bad cardiac disease, and could be at high risk for event. Cath decided against by cardiology,, and family has also met with them and discussed. Myself and Derrick Hernandes met with patient and family (, granddaughter, and ex-daughter n law)for 40min this afternoon discussing goals of care. Patient did not remember much that oncology said yesterday regarding her diagnosis. I relayed information given to me by Bonnie Claire NP oncology. Patient was very emotional and states, "if it weren't for my grandchildren and , I would leave it alone, but want to spend more time with them and will do it for them". Patient did state that if she could not tolerate treatments and if pain increases, she will stop and "leave it to God". Discussed code status, pt and family became very emotional. This will be an ongoing discussion. She doesn't want to be on ventilator again, but too emotional to make a final decision. Also discussed completed of advanced directives. Family in room does not think that could handle making decisions for her. Patient and family will be discussing this and will f/u on Thursday regarding if they made any decisions. (3) NSTEMI (non-ST elevated myocardial infarction) Current Visit: Yes Status: Acute (4) UTI (urinary tract infection) Current Visit: Yes Status: Resolved Qualifiers: Urinary tract infection type: acute cystitis Hematuria presence: without h ematuria Qualified Code(s): N30.00 - Acute cystitis without hematuria (5) Ureteral calculus, right Current Visit: Yes Status: Acute (6) Peritoneal carcinomatosis Current Visit: Yes Status: Suspected - Time Spent With Patient Total time spent is greater than 50% in coordination of care (as documented) at patient's floor/unit and/or counseling patient: Greater than 35 minutes - Subjective Interval history: Pathology has returned and reveals 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 Spoke with Bonnie Claire, - Oncology had a long discussion with patient and family last night. EGD/Colonscopy with no mass found, but unable to proceed past hepatic flexure. Patient desires to proceed with palliative chemotherapy. Cardiology will be seeing patient and do not plan on heart cath at this time, conservative management only. THey have came and spoke with pt and family. She continues to have some abdominal tenderness. - Constitutional Vitals: Abnormal lab results RBC 3.04 M/mcL (3.82-4.97) L 03/05/18 03:27 Hgb 8.4 g/dL (11.5-15.4) L 03/05/18 03:27 Hct 26.7 % (35.3-44.9) L 03/05/18 03:27 MCH 27.6 pg (28.0-33.3) L 03/05/18 03:27 MCHC 31.5 g/dL (31.6-35.5) L 03/05/18 03:27 RDW 15.3 % (11.5-14.5) H 03/05/18 03:27 Nucleated RBCs/100 WBC 0.2 /100 WBC (0) H 03/05/18 03:27 PT 15.9 Seconds (9.4-12.1) H 02/28/18 13:19 ABG pCO2 28 mmHg (35-45) L 03/03/18 04:45 ABG pO2 148 mmHg (85-104) H 03/03/18 04:45 ABG HCO3 19 mEq/L (21-27) L 03/03/18 04:45 ABG Total CO2 19 mEq/L (20-26) L 03/03/18 04:45 ABG O2 Saturation 99 % (95-98) H 03/03/18 04:45 ABG Base Excess -5 mEq/L (-2 to 3) L 03/03/18 04:45 ABG Hematocrit 29.0 % (35.3-44.9) L 03/02/18 13:09 Potassium 3.4 mEq/L (3.5-5.3) L 03/02/18 13:09 Glucose 200 mg/dL (60-95) H 03/02/18 13:09 Sodium 134 mEq/L (136-145) L 03/05/18 03:27 Carbon Dioxide 21 mEq/L (23-29) L 03/05/18 03:27 Glucose 123 mg/dL (70-105) H 03/05/18 03:27 POC Glucose 123 mg/dL (70-99) H 03/05/18 05:36 Calcium 8.4 mg/dL (8.6-10.3) L 03/05/18 03:27 Iron < 10 mcg/dL (50-170) L 03/02/18 06:04 Transferrin 109 mg/dL (203-362) L 03/02/18 06:04 Ferritin 802 ng/mL (10-120) H 03/02/18 06:04 Ammonia < 10 mcmol/L (16-53) L 02/28/18 13:19 Lactate Dehydrogenase 113 Units/L (140-271) L 03/01/18 05:21 Troponin I 2.08 ng/mL (< 0.04) H* 03/03/18 01:15 B-Natriuretic Peptide 188 pg/mL (Less than 100) H 03/02/18 16:06 Serum Total Protein 5.7 g/dL (6.4-8.9) L 03/05/18 03:27 Albumin 2.4 g/dL (3.5-5.7) L 03/05/18 03:27 Albumin/Globulin Ratio 0.7 (1.1-2.2) L 03/05/18 03:27 Vitamin B12 > 1500 pg/mL (250-1100) H 03/02/18 06:04 Ur Specimen Adequacy See below A 03/04/18 04:00 Urine Clarity Cloudy (Clear) A 03/04/18 04:00 Urine Protein 100 mg/dL (Neg-Trace) H 03/04/18 04:00 Urine Ketones 15 mg/dL (Negative) H 03/04/18 04:00 Urine Blood Large (Negative) H 03/04/18 04:00 Ur Leukocyte Esterase Moderate (Negative) H 03/04/18 04:00 Urine Microscopic WBC 5-15 per hpf (0-3) H 02/28/18 13:29 Urine Bacteria Many per hpf (None-Few) H 02/28/18 13:29 Ur Culture Indicated? YES (NO) A 03/04/18 04:00 Periton Tot Nuc Cells 6653 TNC/mcL (0-300) H 02/28/18 15:59 Stool Occult Bld Scrn Positive (Negative) A 02/28/18 13:36 Palliative Quality Palliative Quality: Screen for Code Status: No (Discussion will be ongoing after test results), Screen for Goals of Care: No, Screen for Pain: Yes, If Pain Regimen Started, Initiate Bowel Regimen: No, Screen for Nausea/Vomitting: Yes Code Status: 02/28/18 15:34 Resuscitation Status: Active [RES] Routine Comment: Resuscitation Status: Full Code - Labs CBC & Chem 7: 03/05/18 03:27 03/05/18 03:27 Labs: Laboratory Results - last 24 hr 03/01/18 03/04/18 03/04/18 15:59 12:15 12:38 WBC RBC Hgb Hct MCV MCH MCHC RDW Plt Count MPV Immature Gran % Seg Neutrophils % Lymphocytes % Monocytes % Eosinophils % Basophils % Neutrophils # Lymphocytes # Monocytes # Eosinophils # Basophils # Nucleated RBCs/100 WBC Sodium Potassium Chloride Carbon Dioxide BUN Creatinine Est GFR ( Amer) Est GFR (Non-Af Amer) BUN/Creatinine Ratio Glucose POC Glucose 133 H Calculated Osmolality Calcium Phosphorus Magnesium Total Bilirubin AST ALT Alkaline Phosphatase Serum Total Protein Albumin Globulin Albumin/Globulin Ratio Fluid Albumin Source ASCITES Fluid Albumin 1890 Blood Type O POSITIVE Antibody Screen NEGATIVE Crossmatch See Detail 03/04/18 03/04/18 03/05/18 18:22 23:19 03:27 WBC 9.8 RBC 3.04 L Hgb 8.4 L Hct 26.7 L MCV 87.8 MCH 27.6 L MCHC 31.5 L RDW 15.3 H Plt Count 329 MPV 9.5 Immature Gran % 1.9 Seg Neutrophils % 74.7 Lymphocytes % 10.6 Monocytes % 9.4 Eosinophils % 3.1 Basophils % 0.3 Neutrophils # 7.3 Lymphocytes # 1.0 Monocytes # 0.9 Eosinophils # 0.3 Basophils # 0.0 Nucleated RBCs/100 WBC 0.2 H Sodium Potassium Chloride Carbon Dioxide BUN Creatinine Est GFR ( Amer) Est GFR (Non-Af Amer) BUN/Creatinine Ratio Glucose POC Glucose 134 H 124 H Calculated Osmolality Calcium Phosphorus Magnesium Total Bilirubin AST ALT Alkaline Phosphatase Serum Total Protein Albumin Globulin Albumin/Globulin Ratio Fluid Albumin Source Fluid Albumin Blood Type Antibody Screen Crossmatch 03/05/18 03/05/18 03:27 05:36 WBC RBC Hgb Hct MCV MCH MCHC RDW Plt Count MPV Immature Gran % Seg Neutrophils % Lymphocytes % Monocytes % Eosinophils % Basophils % Neutrophils # Lymphocytes # Monocytes # Eosinophils # Basophils # Nucleated RBCs/100 WBC Sodium 134 L Potassium 3.6 Chloride 101 Carbon Dioxide 21 L BUN 19 Creatinine 0.89 Est GFR ( Amer) > 60 Est GFR (Non-Af Amer) > 60 BUN/Creatinine Ratio 21 Glucose 123 H POC Glucose 123 H Calculated Osmolality 282 Calcium 8.4 L Phosphorus 2.8 Magnesium 1.7 Total Bilirubin 0.7 AST 29 ALT 15 Alkaline Phosphatase 84 Serum Total Protein 5.7 L Albumin 2.4 L Globulin 3.3 Albumin/Globulin Ratio 0.7 L Fluid Albumin Source Fluid Albumin Blood Type Antibody Screen Crossmatch - ABG Interpretation ABG results: ABG ABG pH 7.43 pH Units (7.32-7.45) 03/03/18 04:45 ABG pCO2 28 mmHg (35-45) L 03/03/18 04:45 ABG pO2 148 mmHg (85-104) H 03/03/18 04:45 ABG O2 Saturation 99 % (95-98) H 03/03/18 04:45 PT/INR, D-dimer PT 15.9 Seconds (9.4-12.1) H 02/28/18 13:19 Consult Discharge Plan - Plan Referrals: Grupo Purcell DO [Primary Care Provider] -
--- NOTE | 2018-03-05 12:29 | Cardiology Progress Note ---
Date of Encounter: 03/05/18 Time of Encounter: 12:26 Assessment and Plan (1) NSTEMI (non-ST elevated myocardial infarction) Current Visit: Yes Status: Acute Peak troponin 2.08. Reported exertional angina over the last year. TTE with significant drop in EF, previously normal, now 20-25%. Patient with GI bleed and had downtrending hemoglobin. 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 EGD/Colonscopy with no mass found, but unable to proceed past hepatic flexure. Plan is to proceed with palliative chemotherapy. No heparin gtt given GI bleed/anemia. Stool occult positive. Discussed with Dr. Morgan and Dr. Silveira. Prognosis is guarded. Palliative care involved. Given stage IV metastatic cancer, inability to pass hepatic flexure on colonoscopy and risk of bleeding on DAPT, recommend conservative approach from cardiology. ASA, Statin, BB. Add Imdur 30mg daily. Cardiology signing off. Reconsult PRN. (2) Cardiomyopathy Current Visit: Yes Status: Acute EF previously normal, now reduced to 20-25%. NICMP vs ICMP. 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 Hx of CAD s/p CABG. As above, conservative approach since prognosis is guarded. Palliative care involved. Start PO BB and ACEi. Qualifiers: Cardiomyopathy type: unspecified Qualified Code(s): I42.9 - Cardiomyopathy, unspecified (3) CAD (coronary artery disease) Current Visit: Yes Status: Chronic Hx CAD s/p CABG in 2011. ASA, Statin, BB, add Imdur. Qualifiers: Coronary Disease-Associated Artery/Lesion type: [place] artery [place] vs. transplanted heart: [place] heart Associated angina: angina presence unspecified Qualified Code(s): I25.10 - Atherosclerotic heart disease of [place] coronary artery without angina pectoris Discussion w patient/family: The assessment and plan as outlined above was discussed with the patient and/or family members who expressed understanding and agreement. All questions were answered. Thank you for involving us in the care of your patient. Please call with any questions. I will discuss all the above with Dr. Silveira and Dr. Morgan and make changes as necessary. Subjective Principal diagnosis: hypoxic respiratory failure Interval history: Pt denies chest pain currently. Plan for upper endoscopy today. Objective Vital Signs, Last 4 Hours Pulse Resp BP Pulse Ox 03/05/18 11:00 98 14 119/58 92 03/05/18 10:00 77 14 110/67 90 03/05/18 09:00 79 14 125/62 90 Results 03/05/18 03:27 03/05/18 03:27 Lab Results 03/05/18 03/05/18 03:27 03:27 WBC 9.8 Hgb 8.4 L Hct 26.7 L Plt Count 329 Sodium 134 L Potassium 3.6 Chloride 101 Carbon Dioxide 21 L BUN 19 Creatinine 0.89 Glucose 123 H Calcium 8.4 L Magnesium 1.7 Total Bilirubin 0.7 AST 29 ALT 15 Alkaline Phosphatase 84 Consult Discharge Plan - Plan Referrals: Grupo Purcell DO [Primary Care Provider] -
[2018-03-05] MEDS ORDERED: Isosorbide MONOnitrate (24 HR) 30 MG TAB.ER.24H PO SCH (12:45)
[2018-03-05] MEDS ORDERED: Metoprolol XL (24 HR) Succ 25 MG TAB.ER.24H PO SCH (12:45)
[2018-03-05] MEDS ORDERED: Aspirin 81 MG TAB.CHEW PO SCH (12:45)
[2018-03-05] MEDS ORDERED: OXYCODONE Oral CONC 10 MG/0.5 ML ORAL.SYG SL PRN (13:42)
[2018-03-05] MEDS: traZODone 50 MG TABLET PO SCH (22:22)
[2018-03-06] MEDS: Insulin LISPRO 300 UNITS/3 ML VIAL SQ SCH ×4 (00:12→18:32)
[2018-03-06] MEDS ORDERED: Dextrose Gel 15 GM/37.5 ML TUBE PO PRN ×2 (02:10)
[2018-03-06] MEDS ORDERED: *HR* Promethazine 25 MG/ML VIAL IVP PRN (02:10)
[2018-03-06] MEDS ORDERED: D5% in Water 1,000 ML IVC PRN (02:10)
[2018-03-06] MEDS ORDERED: *HR* Dextrose 50 % in Water (Syg) 50 ML SYRINGE IVP PRN (02:10)
[2018-03-06] MEDS ORDERED: Naloxone 0.4 MG/ML INJ IVP PRN (02:10)
[2018-03-06] MEDS ORDERED: Acetaminophen 325 MG TABLET PO PRN (02:10)
[2018-03-06] MEDS: OXYCODONE Oral CONC 10 MG/0.5 ML ORAL.SYG SL PRN ×5 (02:42→21:35)
[2018-03-06] MEDS: *HR* Heparin 5,000 UNIT/ML VIAL SQ SCH ×2 (06:22→18:25)
--- NOTE | 2018-03-06 07:34 | Internal Med Progress Note ---
Hospitalist Progress Note - Encounter Date of Encounter: 03/06/18 Time of Encounter: 07:30 - Exam Vitals: Temp Pulse Resp BP Pulse Ox 98.5 F 108 18 106/53 91 03/06/18 02:38 03/06/18 02:38 03/06/18 02:38 03/06/18 02:38 03/06/18 02:38 Exam: General: Patient is alert, no acute distress, oriented x 3 Respiratory: Good respiratory effort. Normal breath sounds. No wheezing or crackles. Cardiovascular: Regular rate and rhythm. s1 and s2 normal No clicks, rubs, gallops, or murmurs. No pedal edema Abdomen: Abdomen is soft, distended. Tender in the lower quadrants. Bowel sounds are present Musculoskeletal: Spontaneously moving all extremities Skin: warm, dry, intact. Neuro: Alert oriented x 3 normal cranial nerves, no focal deficits - Assessment and Plan (1) Respiratory failure with hypoxia Current Visit: Yes Status: Acute Assessment and Plan: Occured s/p extubation for ureteral stent placement and had to be reintubated. Patient is currently saturating fine on room air Possible secondary to acute sysytolic CHF. EF 20-25% . Lasix as needed Disposition. Plan to d/c home if cleared by PT (2) NSTEMI (non-ST elevated myocardial infarction) Current Visit: Yes Status: Acute Assessment and Plan: Troponins peaked at 2.08 and she has a new cardiomyopathy with EF of 20-25% Cardiology recommend conservative approach due to her multiple comorbidities with GI bleed and stage 4 malignancy and patient will not get a cardiac cath at this time Continue aspirin, statin, beta blockers and imdur (3) Adenocarcinoma Current Visit: Yes Status: Acute Assessment and Plan: s/p paracentesis and omental biopsy. 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 Hemoglobin stable at 8.4 Pt is s/p EGD and colonoscopy. EGD was normal . Colonoscopy was difficult due to a tortuous colon. Iron deficiency anemia is likely secondary to her malignancy of colon or small bowel (6) Cirrhosis of liver Current Visit: Yes Status: Chronic Assessment and Plan: Based on CT scan findings patient has cirrhosis of the liver. Will treat supportively. Hepatitis viral screening negative. GI following (7) Ureteral calculus, right Current Visit: Yes Status: Acute Assessment and Plan: Urology following. s/p stent placement (8) Diabetes mellitus Current Visit: Yes Status: Chronic Assessment and Plan: Monitor blood sugars. Will place patient on sliding scale insulin. (9) Urinary tract infection Current Visit: Yes Status: Acute Assessment and Plan: Completed course of ceftriaxone DVT Prophylaxis: heparin sc - Time Spent with Patient Total time spent is greater than 50% in coordination of care (as documented) at patient's floor/unit and/or counseling patient: Internal Medicine: Result - Labs CBC & Chem 7: 03/05/18 03:27 03/05/18 03:27 - ABG Interpretation ABG results: ABG ABG pH 7.43 pH Units (7.32-7.45) 03/03/18 04:45 ABG pCO2 28 mmHg (35-45) L 03/03/18 04:45 ABG pO2 148 mmHg (85-104) H 03/03/18 04:45 ABG O2 Saturation 99 % (95-98) H 03/03/18 04:45 PT/INR, D-dimer PT 15.9 Seconds (9.4-12.1) H 02/28/18 13:19 - Impressions Impressions Retroperitoneum Ultrasound 03/05/18 15:30 IMPRESSION: 1. Mild right renal atrophy with no findings of underlying parenchymal disease. 2. Normal sonographic appearance of the left kidney. 3. Largely decompressed urinary bladder due to the presence of Bows[place] catheter. 4. Incidental note of cirrhosis and at least trace ascites. D/ / Dallas Llanes MD / Dallas Llanes MD Interpreting Provider: Dallas Llanes MD Consult Discharge Plan - Plan Referrals: Grupo Purcell DO [Primary Care Provider] - (1) Respiratory failure with hypoxia Qualifiers: Chronicity: acute Qualified Code(s): J96.01 - Acute respiratory failure with hypoxia (5) Anemia Qualifiers: Anemia type: unspecified type Qualified Code(s): D64.9 - Anemia, unspecified (6) Cirrhosis of liver Qualifiers: Hepatic cirrhosis type: unspecified hepatic cirrhosis Ascites presence: with ascites Qualified Code(s): K74.60 - Unspecified cirrhosis of liver; R18.8 - Other ascites (8) Diabetes mellitus Qualifiers: Diabetes mellitus type: type 2 Diabetes mellitus prison 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
[2018-03-06] MEDS: Multivit/Ca/Min/Fe/FA 1 TAB TABLET PO SCH (09:20)
[2018-03-06] MEDS: Aspirin 81 MG TAB.CHEW PO SCH (09:20)
[2018-03-06] MEDS: Isosorbide MONOnitrate (24 HR) 30 MG TAB.ER.24H PO SCH (09:20)
[2018-03-06] MEDS: Cyanocobalamin (B-12) 1,000 MCG TABLET PO SCH (09:20)
[2018-03-06] MEDS: Metoprolol XL (24 HR) Succ 25 MG TAB.ER.24H PO SCH (09:21)
--- NOTE | 2018-03-06 09:46 | Palliative Progress Note ---
Date of Encounter: 03/06/18 Time of Encounter: 09:15 - Assessment and plan (1) Abdominal pain Current Visit: No Status: Acute Assessment and plan: Patient reports that abdominal pain has decreased. Patient has been NPO and diet order has been placed. No BM x 3 days. Senna added to POC and tolerating Oxycodone as present. Encouraged patient to medicate at onest of pain and not pain get out of control. Qualifiers: Abdominal location: generalized Qualified Code(s): R10.84 - Generalized abdominal pain (2) Peritoneal carcinomatosis Current Visit: Yes Status: Suspected Assessment and plan: Patient seen by Oncology. Goals is for palliative chemo. (3) Goals of care, counseling/discussion Current Visit: Yes Status: Acute Assessment and plan: Patient remains FULL CODE. Family to discuss advanced care planning as well Code status over the weekend. Sister at bedside. Patient desires palliative chemotherapy. Suffered NSTEMI and will need interventions once more stable. Will DC to her home in the care of family at [place]. (4) Adenocarcinoma Current Visit: Yes Status: Acute Assessment and plan: Oncology following. - Time Spent With Patient Total time spent is greater than 50% in coordination of care (as documented) at patient's floor/unit and/or counseling patient: - Subjective Interval history: Patient in bed. Alert. States abdominal pain is better. Patient has been NPO and order for diet placed. Last BM 03/03. Abdomen soft, BS x 4. Sister at bedside. - Constitutional Vitals: Abnormal lab results RBC 3.04 M/mcL (3.82-4.97) L 03/05/18 03:27 Hgb 8.4 g/dL (11.5-15.4) L 03/05/18 03:27 Hct 26.7 % (35.3-44.9) L 03/05/18 03:27 MCH 27.6 pg (28.0-33.3) L 03/05/18 03:27 MCHC 31.5 g/dL (31.6-35.5) L 03/05/18 03:27 RDW 15.3 % (11.5-14.5) H 03/05/18 03:27 Nucleated RBCs/100 WBC 0.2 /100 WBC (0) H 03/05/18 03:27 PT 15.9 Seconds (9.4-12.1) H 02/28/18 13:19 ABG pCO2 28 mmHg (35-45) L 03/03/18 04:45 ABG pO2 148 mmHg (85-104) H 03/03/18 04:45 ABG HCO3 19 mEq/L (21-27) L 03/03/18 04:45 ABG Total CO2 19 mEq/L (20-26) L 03/03/18 04:45 ABG O2 Saturation 99 % (95-98) H 03/03/18 04:45 ABG Base Excess -5 mEq/L (-2 to 3) L 03/03/18 04:45 ABG Hematocrit 29.0 % (35.3-44.9) L 03/02/18 13:09 Potassium 3.4 mEq/L (3.5-5.3) L 03/02/18 13:09 Glucose 200 mg/dL (60-95) H 03/02/18 13:09 Sodium 134 mEq/L (136-145) L 03/05/18 03:27 Carbon Dioxide 21 mEq/L (23-29) L 03/05/18 03:27 Glucose 123 mg/dL (70-105) H 03/05/18 03:27 POC Glucose 124 mg/dL (70-99) H 03/06/18 06:09 Calcium 8.4 mg/dL (8.6-10.3) L 03/05/18 03:27 Iron < 10 mcg/dL (50-170) L 03/02/18 06:04 Transferrin 109 mg/dL (203-362) L 03/02/18 06:04 Ferritin 802 ng/mL (10-120) H 03/02/18 06:04 Ammonia < 10 mcmol/L (16-53) L 02/28/18 13:19 Lactate Dehydrogenase 113 Units/L (140-271) L 03/01/18 05:21 Troponin I 2.08 ng/mL (< 0.04) H* 03/03/18 01:15 B-Natriuretic Peptide 188 pg/mL (Less than 100) H 03/02/18 16:06 Serum Total Protein 5.7 g/dL (6.4-8.9) L 03/05/18 03:27 Albumin 2.4 g/dL (3.5-5.7) L 03/05/18 03:27 Albumin/Globulin Ratio 0.7 (1.1-2.2) L 03/05/18 03:27 Vitamin B12 > 1500 pg/mL (250-1100) H 03/02/18 06:04 Ur Specimen Adequacy See below A 03/04/18 04:00 Urine Clarity Cloudy (Clear) A 03/04/18 04:00 Urine Protein 100 mg/dL (Neg-Trace) H 03/04/18 04:00 Urine Ketones 15 mg/dL (Negative) H 03/04/18 04:00 Urine Blood Large (Negative) H 03/04/18 04:00 Ur Leukocyte Esterase Moderate (Negative) H 03/04/18 04:00 Urine Microscopic WBC 5-15 per hpf (0-3) H 02/28/18 13:29 Urine Bacteria Many per hpf (None-Few) H 02/28/18 13:29 Ur Culture Indicated? YES (NO) A 03/04/18 04:00 Periton Tot Nuc Cells 6653 TNC/mcL (0-300) H 02/28/18 15:59 Stool Occult Bld Scrn Positive (Negative) A 02/28/18 13:36 - Head Head exam: Present: atraumatic, normal inspection, normocephalic - Eye Eye exam: Present: PERRL Pupils: Present: PERRL - ENT ENT exam: Present: mucous membranes moist - Respiratory Respiratory exam: Present: CTAB - Cardiovascular Cardiovascular exam: Present: RRR, +S1, +S2 - GI/Abdominal GI/Abdominal exam: Present: normal bowel sounds, soft, tenderness - Rectal Rectal exam: Present: deferred - Extremities Exam Extremities exam: Present: normal inspection - Neurological Exam Neurological exam: Present: alert, oriented X3 - Psychiatric Psychiatric exam: Present: normal affect - Skin Skin exam: Present: pallor, warm Palliative Quality Palliative Quality: Screen for Code Status: No (Discussion will be ongoing after test results), Screen for Goals of Care: No, Screen for Pain: Yes, If Pain Regimen Started, Initiate Bowel Regimen: No, Screen for Nausea/Vomitting: Yes Code Status: 02/28/18 15:34 Resuscitation Status: Active [RES] Routine Comment: Resuscitation Status: Full Code - Labs CBC & Chem 7: 03/05/18 03:27 03/05/18 03:27 Labs: Laboratory Results - last 24 hr 03/02/18 03/05/18 03/05/18 06:04 11:21 17:04 POC Glucose 114 H 141 H Tumor Marker AFP 1 03/05/18 03/06/18 23:31 06:09 POC Glucose 115 H 124 H Tumor Marker AFP - Impressions Impressions Retroperitoneum Ultrasound 03/05/18 15:30 IMPRESSION: 1. Mild right renal atrophy with no findings of underlying parenchymal disease. 2. Normal sonographic appearance of the left kidney. 3. Largely decompressed urinary bladder due to the presence of Bowser catheter. 4. Incidental note of cirrhosis and at least trace ascites. D/ / Dallas Llanes MD / Dallas Llanes MD Interpreting Provider: Dallas Llanes MD - ABG Interpretation ABG results: ABG ABG pH 7.43 pH Units (7.32-7.45) 03/03/18 04:45 ABG pCO2 28 mmHg (35-45) L 03/03/18 04:45 ABG pO2 148 mmHg (85-104) H 03/03/18 04:45 ABG O2 Saturation 99 % (95-98) H 03/03/18 04:45 PT/INR, D-dimer PT 15.9 Seconds (9.4-12.1) H 02/28/18 13:19 Consult Discharge Plan - Plan Referrals: Grupo Purcell DO [Primary Care Provider] -
[2018-03-06] MEDS: Sennosides/Docusate Sodium TABLET PO SCH (11:17)
[2018-03-06] MEDS ORDERED: *HR* FentaNYL (PF) 100 MCG/2 ML VIAL IVP ONE (15:47)
--- NOTE | 2018-03-06 19:32 | Electrocardiograph Report ---
[address] [place], [place] [address] Test Date: 2018-03-02 Pat Name: Nabila Cunningham Department: 112 Room: 2A34 Gender: F Installer: : 1940 Requested By: Miquel Lara Order Number: [id number] Reading MD: Cisco Trammell Measurements Intervals [place] Rate: 106 P: 55 MO: 180 QRS: 60 QRSD: 117 T: -50 QT: 337 QTc: 399 Interpretive Statements SINUS TACHYCARDIA INTRAVENTRICULAR CONDUCTION DELAY STT ABNORMALITY, CONSIDER ISCHEMIA Electronically Signed On 03-06-2018 19:31:36 EDT by Cisco Trammell
[2018-03-06] MEDS ORDERED: Insulin LISPRO 300 UNITS/3 ML VIAL SQ SCH (21:00)
--- NOTE | 2018-03-06 21:22 | Electrocardiograph Report ---
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
[2018-03-06] MEDS: traZODone 50 MG TABLET PO SCH (21:34)
--- NOTE | 2018-03-06 22:04 | Electrocardiograph Report ---
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
[2018-03-06] MEDS ORDERED: traMADol 50 MG TABLET PO ONE (22:07)
[2018-03-07] MEDS ORDERED: *HR* LORazepam 2 MG/ML VIAL ONE ×2 (03:59→04:26)
[2018-03-07] MEDS ORDERED: *HR* Metoprolol 5 MG/5 ML VIAL IVP ONE (04:08)
[2018-03-07] MEDS ORDERED: Furosemide 40 MG/4 ML VIAL ONE (04:10)
[2018-03-07] MEDS ORDERED: Haloperidol Lactate 5 MG/ML VIAL ONE (04:14)
[2018-03-07 04:27] LABS: ABG Base Excess 2 mEq/L (-2 to 3); ABG HCO3 26 mEq/L (21-27); ABG Oxygen Saturation 100 % (95-98); ABG PCO2 39 mmHg (35-45); ABG PH 7.43 pH Units (7.32-7.45); ABG PO2 322 mmHg (85-104); ABG TCO2 27 mEq/L (20-26)
[2018-03-07 04:57] LABS: Basophils # 0.1 K/mcL (0.0-0.2); Basophils % 0.6 %; Eosinophils # 0.2 K/mcL (0.0-0.6); Eosinophils % 2.7 %; Hematocrit 27.2 % (35.3-44.9); Hemoglobin 8.8 g/dL (11.5-15.4); Immature Granulocytes % 1.5 % (0-4); Lymphocytes % 11.2 %; Mean Corpuscular HGB Conc 32.4 g/dL (31.6-35.5); Mean Corpuscular Hemoglobin 28.1 pg (28.0-33.3); Mean Corpuscular Volume 86.9 fL (83.0-100.0); Mean Platelet Volume 9.6 fL (9.4-12.4); Monocytes # 0.9 K/mcL (0.0-1.3); Monocytes % 10.3 %; Neutrophils # 6.5 K/mcL (1.6-8.9); Platelet Count 275 K/mcL (140-400); Red Blood Count 3.13 M/mcL (3.82-4.97); Red Cell Distribution Width 15.2 % (11.5-14.5); Segmented Neutrophils % 73.7 %
[2018-03-07 05:16] LABS: BUN/Creatinine Ratio 11 (6-26); Blood Urea Nitrogen 10 mg/dL (8-23); Calcium 8.3 mg/dL (8.6-10.3); Carbon Dioxide 22 mEq/L (23-29); Chloride 99 mEq/L (98-107); Glucose 150 mg/dL (70-105); Magnesium 1.4 mg/dL (1.6-2.6); Osmolality,Calculated 278 (280-300); Potassium 3.1 mEq/L (3.5-5.1); Sodium 133 mEq/L (136-145); eGFR For Non-African Americans > 60 (> 60)
[2018-03-07 05:19] LABS: Troponin I 0.23 ng/mL (< 0.04)
--- NOTE | 2018-03-07 05:59 | Event Note ---
Date of Encounter: 03/07/18 Time of Encounter: 05:54 I was called in by the RN because the patient had an acute change in mental status. On my arrival the patient was off supplemental oxygen, hypoxic in the 70s and notably altered with non-purposeful movements. She was unable to verbalize or answer questions and appeared delirious. She was equally tachycardic into the 160s. She was given a total of 4mf lorazepam for sedation, 2mg haloperidol, 5mg metoprolol and 40mg furosemide as she sounded highly congested. Her oxygenation improved to the high 90s with non-rebreather and becoming more sedated. Comprehensive labs were done, EKG ordered showing new T- wave inversions however her troponin is seen to be much lower than upon admiss ion. Her oxygenation seemed to improve when in a calmer state however when delirious and agitated she would desatruate. We were able to keep her calm and sedated with the RN continuing 1 to 1 monitoring with optimal hemodynamics noted. Rest of labs pending and will follow.
--- NOTE | 2018-03-07 07:41 | Internal Med Progress Note ---
Hospitalist Progress Note - Encounter Date of Encounter: 03/07/18 Time of Encounter: 07:00 - Exam Vitals: Temp Pulse Resp BP Pulse Ox 98.6 F 98 17 104/65 92 03/07/18 00:02 03/07/18 00:02 03/07/18 00:02 03/07/18 00:02 03/07/18 00:02 Exam: General: Patient is alert, no acute distress, oriented x 3 Respiratory: Good respiratory effort. Normal breath sounds. No wheezing or crackles. Cardiovascular: Regular rate and rhythm. s1 and s2 normal No clicks, rubs, gallops, or murmurs. No pedal edema Abdomen: Abdomen is soft, distended. Tender in the lower quadrants. Bowel sounds are present Musculoskeletal: Spontaneously moving all extremities Skin: warm, dry, intact. Neuro: Alert oriented x 3 normal cranial nerves, no focal deficits - Assessment and Plan (1) Respiratory failure with hypoxia Current Visit: Yes Status: Acute Assessment and Plan: Occured s/p extubation for ureteral stent placement and had to be reintubated. Patient is currently saturating fine on room air Possible secondary to acute systolic CHF. EF 20-25% . Lasix as needed 03/07. Pt had episode of acute hypoxic respiratory failure with altered mental status this am. Possibly secondary to fluid overload. Will give lasix BID and obtain CXR Disposition. I think hospice should be considered for this patient due to her multiple comorbidities. For now, the plan is pursue chemotherapy outpatient but patient is unstable and hypoxic, and constantly in pain and is unsafe for discharge home and will possibly have a protracted hospital course. Will involve social work, PT and palliative care for discharge planning (2) NSTEMI (non-ST elevated myocardial infarction) Current Visit: Yes Status: Acute Assessment and Plan: Troponins peaked at 2.08 and she has a new cardiomyopathy with EF of 20-25% Cardiology recommend conservative approach due to her multiple comorbidities with GI bleed and stage 4 malignancy and patient will not get a cardiac cath at this time Continue aspirin, statin, beta blockers and imdur (3) Adenocarcinoma Current Visit: Yes Status: Acute Assessment and Plan: s/p paracentesis and omental biopsy. 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 Hemoglobin stable at 8.4 Pt is s/p EGD and colonoscopy. EGD was normal . Colonoscopy was difficult due to a tortuous colon. Iron deficiency anemia is likely secondary to her malignancy of colon or small bowel (6) Cirrhosis of liver Current Visit: Yes Status: Chronic Assessment and Plan: Based on CT scan findings patient has cirrhosis of the liver. Will treat supportively. Hepatitis viral screening negative. GI following (7) Ureteral calculus, right Current Visit: Yes Status: Acute Assessment and Plan: Urology following. s/p stent placement (8) Diabetes mellitus Current Visit: Yes Status: Chronic Assessment and Plan: Monitor blood sugars. Will place patient on sliding scale insulin. (9) Urinary tract infection Current Visit: Yes Status: Acute Assessment and Plan: Completed course of ceftriaxone DVT Prophylaxis: heparin sc - Time Spent with Patient Total time spent is greater than 50% in coordination of care (as documented) at patient's floor/unit and/or counseling patient: Internal Medicine: Result - Labs CBC & Chem 7: 03/07/18 04:42 03/07/18 04:42 Labs: Short CBC 03/07/18 Range/Units 04:42 WBC 8.8 (4.3-11.1) K/mcL Hgb 8.8 L (11.5-15.4) g/dL Hct 27.2 L (35.3-44.9) % Plt Count 275 (140-400) K/mcL Neutrophils # 6.5 (1.6-8.9) K/mcL BMP 03/07/18 04:42 Sodium 133 L Potassium 3.1 L Chloride 99 Carbon Dioxide 22 L BUN 10 Creatinine 0.89 Glucose 150 H Calcium 8.3 L Cardiac Enzymes 03/07/18 Range/Units 04:42 Troponin I 0.23 H* (< 0.04) ng/mL - ABG Interpretation ABG results: ABG ABG pH 7.43 pH Units (7.32-7.45) 03/07/18 04:22 ABG pCO2 39 mmHg (35-45) 03/07/18 04:22 ABG pO2 322 mmHg (85-104) H 03/07/18 04:22 ABG O2 Saturation 100 % (95-98) H 03/07/18 04:22 PT/INR, D-dimer PT 15.9 Seconds (9.4-12.1) H 02/28/18 13:19 Consult Discharge Plan - Plan Referrals: Grupo Purcell, [Primary Care Provider] - (1) Respiratory failure with hypoxia Qualifiers: Chronicity: acute Qualified Code(s): J96.01 - Acute respiratory failure with hypoxia (5) Anemia Qualifiers: Anemia type: unspecified type Qualified Code(s): D64.9 - Anemia, unspecified (6) Cirrhosis of liver Qualifiers: Hepatic cirrhosis type: unspecified hepatic cirrhosis Ascites presence: with ascites Qualified Code(s): K74.60 - Unspecified cirrhosis of liver; R18.8 - Other ascites (8) Diabetes mellitus Qualifiers: Diabetes mellitus type: type 2 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
[2018-03-07] MEDS: Insulin LISPRO 300 UNITS/3 ML VIAL SQ SCH ×2 (07:49→12:45)
[2018-03-07] MEDS ORDERED: Furosemide 20 MG/2 ML VIAL IVP SCH (08:00)
[2018-03-07] MEDS: *HR* Heparin 5,000 UNIT/ML VIAL SQ SCH (09:21)
[2018-03-07] MEDS: Aspirin 81 MG TAB.CHEW PO SCH (09:23)
[2018-03-07] MEDS: Isosorbide MONOnitrate (24 HR) 30 MG TAB.ER.24H PO SCH (09:23)
[2018-03-07] MEDS: Cyanocobalamin (B-12) 1,000 MCG TABLET PO SCH (09:24)
[2018-03-07] MEDS: Metoprolol XL (24 HR) Succ 25 MG TAB.ER.24H PO SCH (09:24)
[2018-03-07] MEDS: Multivit/Ca/Min/Fe/FA 1 TAB TABLET PO SCH (09:24)
[2018-03-07] MEDS: Sennosides/Docusate Sodium TABLET PO SCH (09:24)
[2018-03-07] MEDS: Potassium Chloride Elixir 20 MEQ/15 ML UDC PO SCH ×2 (09:28→12:46)
--- NOTE | 2018-03-07 10:03 | Event Note ---
Date of Encounter: 03/07/18 Time of Encounter: 09:00 Patient with episode of hypoxic respiratory failure and altered mental status this AM. CXR revealed pulmonary congestion. Lasix 40 mg given with output of 2,750 per bear catheter. Patient received 4 mg of Ativan and 2mg of Haldol. Patient resting comfortable at present. Conducted bedside meeting with Azam of 58 years and Niece Heather. Discussed patient overall decline in past 24 hours. Patient having significant pain to abdomen and multiple co-morbid conditions. Azam states that patient had verbalized that she did not really desire to have palliative chemo yesterday. Patients EF 20-25%. Adencocarcinoma of colon and Meld score of 21. Azam and Heather agree to transition to inpatient hospice care. Explained that if patient was to become stable and pain regimen is effective that she could be discharged to ECF or home. It is not likely that patient will be able to transition home as Azam is unable to care for her at home. They understand that ECF would be a possibility for DC. All medications will be discontinued and comfort medications will be adjusted for abdominal pain as needed. The family understands that patient has overall poor prognosis. Spiritual support and bedside prayer provided. Case discussed with Dr. Lara. Hospice notified of admission and will see patient today to admit. Patient will be transitioned to inpatient GIP. [facility] - Comfort care.
--- NOTE | 2018-03-07 10:30 | Discharge Summary ---
Orders not resulted at time of discharge: Pending orders 02/28/18 13:29 Urinalysis Reflex Cult & Micro [URIN] Stat 03/02/18 22:10 Culture,Blood [BC] Stat Date of Encounter: 03/07/18 Time of Encounter: 10:30 - Discharge Diagnosis (1) Respiratory failure with hypoxia Priority: Primary Status: Acute Assessment and Plan: 77 year old female patient with a history of liver cirrhosis who presented to the ER with complaints of worsening abdominal pain, and abdominal distention that has been going on for at least a month. She had been seen at urgent care in [place] and was scheduled for biopsy for abnormal lesions noted on the CT scan there to be done later this week. She however continued to have significant abdominal pain so she came to the ER. She denies any hematemesis or melena. 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 She was also noted to incidentally have a right ureteral calculus for which she had a stent palced. Procedure was complicated by hypoxic repsiratory failure s/p extubation and SVT And VTach for which she had to be reintubated and got adenosine and amiodarone. 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 Etiology of hypoxic repsiratory failure was thought possibly secndary to acute systolic CHF. She was successfully extubated on 03/03. Due to her comorbidities, it was determined she is not a good candidate for catheterization and cardiology have signed off. She had an EGD and colonoscopy due to iron deficiency anemia. EGD was normal . Colonoscopy was difficult due to a tortuous colon. Iron deficiency anemia was deemed likely secondary to her malignancy of colon or small bowel She was seen by oncology as well and a decision was made to pursue palliative cehemotherapy but on family discussing with palliative care and due to her constant ongoing pain, and intermittent confusion, family have opted to have this patient transitioned to hospice. 35 minutes was spent discharging this patient Qualifiers: Chronicity: acute Qualified Code(s): J96.01 - Acute respiratory failure with hypoxia (2) NSTEMI (non-ST elevated myocardial infarction) Priority: Primary Status: Acute (3) Adenocarcinoma Priority: Primary Status: Acute (4) Peritoneal carcinomatosis Priority: Primary Status: Suspected (5) Anemia Priority: Primary Status: Acute Qualifiers: Anemia type: unspecified type Qualified Code(s): D64.9 - Anemia, unsp ecified (6) Cirrhosis of liver Priority: Primary Status: Chronic Qualifiers: Hepatic cirrhosis type: unspecified hepatic cirrhosis Ascites presence: with ascites Qualified Code(s): K74.60 - Unspecified cirrhosis of liver; R18.8 - Other ascites (7) Ureteral calculus, right Priority: Primary Status: Acute (8) Diabetes mellitus Priority: Primary Status: Chronic Qualifiers: Diabetes mellitus type: type 2 Diabetes mellitus residential insulin use: unspecified residential insulin use status Diabetes mellitus complication status: with kidney complications Diabetes mellitus complication detail: with chronic kidney disease Chronic kidney disease stage: stage 3 (moderate) Qualified Code(s): E11.22 - Type 2 diabetes mellitus with diabetic chronic kidney disease; N18.3 - Chronic kidney disease, stage 3 (moderate) (9) Urinary tract infection Priority: Primary Status: Acute Qualifiers: Urinary tract infection type: acute cystitis Qualified Code(s): N30.00 - Acute cystitis without hematuria Hospital course: Ms. Cunningham is a 77 year old female - Time Spent with Patient Total time spent providing and/or coordinating discharge services: - Discharge Medications Home Medications: Acetaminophen [Tylenol Arthritis] 650 mg PO TID PRN 02/28/18 [History] Aspirin [Adult Aspirin] 81 mg PO DAILY 02/28/18 [History] Atorvastatin [Lipitor] 40 mg PO HS 02/28/18 [History] Cyanocobalamin (Vitamin B-12) [Vitamin B-12] 1,000 mcg PO DAILY 02/28/18 [History] Ferrous Sulfate [Iron] 325 mg PO DAILY 02/28/18 [History] GlipiZIDE [Glipizide ER] 10 mg PO DAILY 02/28/18 [History] Omeprazole [PriLOSEC] 20 mg PO DAILY 02/28/18 [History] Ondansetron HCl [Zofran] 8 mg PO Q8H PRN 02/28/18 [History] Pioglitazone HCl [Actos] 45 mg PO DAILY 02/28/18 [History] Potassium 99 mg PO DAILY 02/28/18 [History] Pramipexole Di-HCl [Pramipexole Dihydrochloride] 0.125 mg PO DAILY 02/28/18 [History] traZODone [TraZODone] 50 mg PO HS 02/28/18 [History] Furosemide [Lasix] 20 mg IVP BIDDIURETIC vial 03/07/18 [Rx] Isosorbide MONOnitrate (24 HR) [Imdur] 30 mg PO DAILY tab.er.24h 03/07/18 [Rx] Lisinopril [Zestril] 2.5 mg PO DAILY tablet 03/07/18 [Rx] Metoprolol XL (24 HR) Succ [Toprol Xl] 12.5 mg PO DAILY tab.er.24h 03/07/18 [Rx] Multivit/Ca/Min/Fe/FA [Thera M Plus] 1 tab PO DAILY tablet 03/07/18 [Rx] OXYCODONE Oral CONC [Oxycodone Oral Conc] 10 mg SL Q4H PRN 30 Days #30 oral.syg 03/07/18 [Rx] Sennosides/Docusate Sodium [Senna Plus] 1 each PO DAILY tablet 03/07/18 [Rx] Allergies/Adverse Reactions: Allergy/AdvReac Type Severity Reaction Status Date / Time No Known Allergies Allergy Verified 09/02/15 12:42 Date of admission: 03/01/18 16:01 Primary care physician: Grupo Purcell DO Consults: 02/28/18 17:21 Consult to Interventional Radiology [CONS] Routine Consulting Provider: Radiology Interventional [facility] Reason for Consult: Peritoneal carcinomatosis; consider biospy with paracentesis Call Completed: No 03/01/18 11:23 Consult to Gastroenterology [CONS] Routine Consulting Provider: Gastroenterology [facility] Reason for Consult: cirrhosis/ anemia/ fobt+ Time Notified: 11:24 Call Completed: Yes 03/01/18 14:13 Consult to Urology [CONS] Routine Consulting Provider: Urology [facility] Reason for Consult: 8 mm calculus Rt distal ureter Time Notified: 14:14 Call Completed: Yes 03/02/18 11:58 Consult to Oncology [CONS] Routine Consulting Provider: Oncology [facility] Reason for Consult: Peritoneal Carcinomatosis Call Completed: Yes 03/02/18 13:57 Consult to Pulmonology [CONS] Routine Consulting Provider: [facility] Reason for Consult: hypoxic resp failure on ventilator Call Completed: Yes 03/03/18 08:48 Consult to Cardiology [CONS] Routine Comment: Consulting Provider: Cardiology [facility] Reason for Consult: abnormal echo findings Time Notified: 08:49 Call Completed: Yes 03/03/18 11:23 Consult to Palliative Care [CONS] Routine Comment: Consulting Provider: Palliative Care [facility] Reason for Consult: peritoneal carcinomatosis Time Notified: 11:23 Call Completed: Yes 03/06/18 07:31 Consult to Physical Therapy [CONS] Routine Comment: Evaluate, develop and implement POC Reason for Consult: deconditioning Does patient have active BEDREST order?: No Is patient medically & hemodynamically stable?: Yes Patient assessed for mobility or mobilized this visit?: No 03/06/18 15:49 Consult to Biblical Languages Professor [CONS] Routine Reason for SW Consult: d/c planning, hospice services? possible d/c 03/07 - Constitutional Vitals: Temp Pulse Resp BP Pulse Ox 98.6 F 92 18 108/65 99 03/07/18 00:02 03/07/18 07:36 03/07/18 07:36 03/07/18 07:36 03/07/18 07:36 General appearance: Present: cooperative, mild distress, A&O X 3, pleasant, answers questions appropriately Exam: General: Patient is alert, no acute distress, oriented x 3 Respiratory: Good respiratory effort. Normal breath sounds. No wheezing or crackles. Cardiovascular: Regular rate and rhythm. s1 and s2 normal No clicks, rubs, gallops, or murmurs. No pedal edema Abdomen: Abdomen is soft, distended. Tender in the lower quadrants. Bowel sounds are present Musculoskeletal: Spontaneously moving all extremities Skin: warm, dry, intact. Neuro: Alert oriented x 3 normal cranial nerves, no focal deficits - Patient Status Disposition: Admitted As Inpatient Condition: Fair - Discharge Instructions Follow Up With: Grupo Purcell DO [Primary Care Provider] -
[2018-03-07 11:52] VITALS: BP 108/65
== END 2018-03-07 13:02 | disposition hospice, inpatient (51) | DRG 987 ==
LOC: EMEROOARM 10:39 → 3ANU 10:39 → SUATTDRO 03-01 16:01 → ICNU 03-02 13:18 → 2ANU 03-06 02:04
PROVIDERS: ADMIT Internal Medicine Nephrology; ATTEND Student in an Organized Health Care Education/Training Program
PROC: IRLYMPH (2018-03-01 13:00)

== ENCOUNTER 2018-03-07 10:28 | Inpatient (IN) ==
[2018-03-07] MEDS ORDERED: Haloperidol Lactate 5 MG/ML VIAL IVP PRN (10:57)
[2018-03-07] MEDS ORDERED: Atropine Sulfate 1% 40 DROP/2 ML BOTTLE SL PRN (10:57)
[2018-03-07] MEDS ORDERED: Ondansetron 4 MG/2 ML VIAL IVP PRN (10:57)
--- NOTE | 2018-03-07 11:37 | Pallative History & Physical ---
Date of Encounter: 03/07/18 Time of Encounter: 11:30 Internal Medicine - H&P: HPI Chief complaint: Desires comfort care and agressive treatment for colon cancer Admitted From: Intrahospital Transfer Plans for Post Hospital Care: at Medical Facility History of present illness: Ms. Cunningham is a 77 year old female who presented to ER for c/o abdominal pain and distention. She had previous CT scan with mesenteric nodularity, and was scheduled for biopsy, however, her symptoms worsened and came to hospital. CT performed here did demonstrate extensive peritoneal carcinomatosis with small volume ascites. She had biopsy and paracentesis on 03/01/18. Pathology of omental biopsy revealed adenocarcinoma. She was also found to have UTI and ureteral calculus, urology consult was obtained and she had Cystoscopy/Pyelogra phy and placement of right stent. Along with these conditions, she developed SVT and required adenosine, Vtach with spontaneous conversion, and then atrial fibrillation. Cardiology consult was obtained. Cardiology recommended conservative management with all her comorbid conditions. She also has anemia with hemoccult + stool - Gastroenterology is following. She had also been seen by Dr. Meraz for a new diagnosis of cirrhosis. Oncology has also seen patient, and offered palliative chemotherapy. Pt had episode of acute hypoxic respiratory failure with altered mental status this am. Possibly secondary to fluid overload. Lasix given and orded BID and CXR revealed pulmonary congestion. Patient EF 20-25%. Patient received haldol and ativan and is resting deeply. Bedside discussion with Azam and decision to de-escalate care decided. Patient will be admitted to inpatient GIP and made DNRCC - Comfort care. Terminal diagnosis metastatic adenocarcinoma of likely colon or small bowel o rigin. Past Med Surg Social Fam HX - Past Medical History Source: old records reviewed, obtained from family, nursing notes reviewed Medical history: cancer, cirrhosis, coronary artery disease, diabetes, hyperlipidemia, hypertension, liver disease, malignancy Additional medical history: DIABETIC NEUROPATHY Psychiatric history: no psych history - Past Surgical History Surgical History: coronary bypass (CABG) - Social History Smoking Status: Never smoker Smokeless Tobacco Status: No Alcohol use: none Drug use: none Occupational status: retired Current living situation: Home Activity Level: Mostly sedentary Recent Out of Country Travel Within the Last 8 Weeks: No Exposure or Possible Exposure to Illness During Travel: No - Family History Father Hx Family Cardiac Disorders: No Hx Family Respiratory Disorders: No Hx Family Cancer: Yes (mouth) Hx Family GI Disorders: No Hx Family Endocrine Disorder: No Hx Family Neuromuscular Disorders: No Hx Family Neurologic Disorders: No Hx Family HEENT Disorders: No Hx Family Autoimmune Disorders: No Mother Living Status: Hx Family Cardiac Disorders: Yes (HTN) Hx Family Respiratory Disorders: No Hx Family Cancer: No Hx Family GI Disorders: No Hx Family Endocrine Disorder: Yes Hx Family Neuromuscular Disorders: No Hx Family Neurologic Disorders: No Hx Family HEENT Disorders: No Hx Family Autoimmune Disorders: No Internal Medicine - H&P: Meds RX: Acetaminophen [Tylenol Arthritis] 650 mg PO TID PRN 02/28/18 [History] RX: Aspirin [Adult Aspirin] 81 mg PO DAILY 02/28/18 [History] RX: Atorvastatin [Lipitor] 40 mg PO HS 02/28/18 [History] RX: Cyanocobalamin (Vitamin B-12) [Vitamin B-12] 1,000 mcg PO DAILY 02/28/18 [History] RX: Ferrous Sulfate [Iron] 325 mg PO DAILY 02/28/18 [History] RX: GlipiZIDE [Glipizide ER] 10 mg PO DAILY 02/28/18 [History] RX: Omeprazole [PriLOSEC] 20 mg PO DAILY 02/28/18 [History] RX: Ondansetron HCl [Zofran] 8 mg PO Q8H PRN 02/28/18 [History] RX: Pioglitazone HCl [Actos] 45 mg PO DAILY 02/28/18 [History] RX: Potassium 99 mg PO DAILY 02/28/18 [History] RX: Pramipexole Di-HCl [Pramipexole Dihydrochloride] 0.125 mg PO DAILY 02/28/18 [History] RX: traZODone [TraZODone] 50 mg PO HS 02/28/18 [History] RX: Furosemide [Lasix] 20 mg IVP BIDDIURETIC vial 03/07/18 [Rx] RX: Isosorbide MONOnitrate (24 HR) [Imdur] 30 mg PO DAILY tab.er.24h 03/07/18 [Rx] RX: Lisinopril [Zestril] 2.5 mg PO DAILY tablet 03/07/18 [Rx] RX: Metoprolol XL (24 HR) Succ [Toprol Xl] 12.5 mg PO DAILY tab.er.24h 03/07/18 [Rx] RX: Multivit/Ca/Min/Fe/FA [Thera M Plus] 1 tab PO DAILY tablet 03/07/18 [Rx] RX: OXYCODONE Oral CONC [Oxycodone Oral Conc] 10 mg SL Q4H PRN 30 Days #30 oral.syg 03/07/18 [Rx] RX: Sennosides/Docusate Sodium [Senna Plus] 1 each PO DAILY tablet 03/07/18 [Rx] Allergy/AdvReac Type Severity Reaction Status Date / Time No Known Allergies Allergy Verified 09/02/15 12:42 ROS unobtainable: due to mental status (Patient sleeping. ) - Constitutional Constitutional ROS PAL: decreased appetite, fatigue - EENT Eyes: requires corrective lenses - Cardiovascular Cardiovascular ROS: chest pain - Respiratory Respiratory: dyspnea - Gastrointestinal Gastrointestinal: abdominal pain, nausea - Genitourinary Palliative ROS female: urinary frequency - Musculoskeletal Musculoskeletal ROS IM: muscle weakness Palliative Care-Exam - Constitutional General appearance: Present: no acute distress - Head Head Exam: Present: atraumatic, normal inspection, normocephalic - Eye Eye exam: Present: PERRL - ENT ENT exam: Present: mucous membranes moist - Neck Neck exam: Present: full ROM - Respiratory Respiratory exam: Present: decreased breath sounds - Expanded Respiratory Exam Location: decreased breath sounds: Left, Right, Lower, rales: Left, Upper - Cardiovascular Cardiovascular exam: Present: RRR, +S1, +S2 - Expanded Cardiovascular Exam Peripheral pulses: 1+: Femoral (L) PM, Femoral (R) PM, Posterior Tibialis (L), Posterior Tibialis (R), 2+: Carotid (L) PM, Carotid (R) PM, Radial (L), Radial (R), Dorsalis Pedis (L) PM, Dorsalis Pedis (R) PM - GI/Abdominal Exam GI/Abdominal exam: Present: diminished bowel sounds, distended, soft - Expanded GI/Abdominal Exam GI/Abdominal exam: Present: ascites - Rectal Rectal exam: Present: deferred - Catheter Type: Urethral (Bear) Additional comments: clear yellow urine from bear - Extremities Exam Extremities exam: Present: pedal edema - Neurological Exam Neurological exam: Present: altered - Psychiatric Psychiatric exam: Present: flat affect - Skin Skin exam: Present: pallor Palliative Quality Palliative Quality: Screen for Code Status: No (Comfort Care), Screen for Goals of Care: No, Screen for Pain: Yes, If Pain Regimen Started, Initiate Bowel Regimen: Yes, Screen for Nausea/Vomitting: Yes Code Status: 03/07/18 10:57 Resuscitation Status: Active [RES] Routine Comment: NO vasopressors Resuscitation Status: DNR-Comfort Care
[2018-03-07] MEDS: *HR* FentaNYL PATCH 25 MCG PATCH TD SCH (16:20)
[2018-03-07] MEDS: Furosemide 20 MG/2 ML VIAL IVP SCH ×2 (17:48→18:52)
[2018-03-07] MEDS: *HR* LORazepam Oral Conc 2 MG/ML PO PRN (18:26)
[2018-03-07] MEDS: traZODone 50 MG TABLET PO SCH (18:57)
[2018-03-07] MEDS: OXYCODONE Oral CONC 10 MG/0.5 ML ORAL.SYG SL PRN (19:25)
[2018-03-07] MEDS: Haloperidol Oral Conc 10 MG/5 ML UDC PO PRN (19:44)
[2018-03-08] MEDS: OXYCODONE Oral CONC 10 MG/0.5 ML ORAL.SYG SL PRN ×6 (03:51→21:25)
[2018-03-08] MEDS: Haloperidol Oral Conc 10 MG/5 ML UDC PO PRN ×3 (03:51→18:37)
[2018-03-08] MEDS: Furosemide 20 MG/2 ML VIAL IVP SCH ×2 (07:41→15:11)
[2018-03-08] MEDS: *HR* LORazepam Oral Conc 2 MG/ML PO PRN ×3 (07:59→21:24)
--- NOTE | 2018-03-08 09:55 | Palliative Progress Note ---
Date of Encounter: 03/08/18 Time of Encounter: 09:45 - Assessment and plan (1) Abdominal pain Current Visit: No Status: Acute Assessment and plan: Continue with Fentanyl patch - this was just started last pm. Oxycodone for breakthrough pain - nursing reports this not lasting 4 hours. Will increased breakthrough dose to Q2H and monitor. Qualifiers: Abdominal location: generalized Qualified Code(s): R10.84 - Generalized abdominal pain (2) Agitation Current Visit: Yes Status: Acute Assessment and plan: Continue Haloperidol PRN. Utilized x2 last 12 hours. (3) Anxiety Current Visit: Yes Status: Acute Assessment and plan: Continue Lorazepam PRN. Utilized x2 last 12 hours. MOnitor. (4) Goals of care, counseling/discussion Current Visit: Yes Status: Acute Assessment and plan: Continue GIP care for symptom management. She is likely to continue needing adjustment in pain medication. (5) Metastatic adenocarcinoma Current Visit: Yes Status: Acute (6) Peritoneal carcinomatosis Current Visit: No Status: Suspected (7) Cardiomyopathy Current Visit: No Status: Acute Qualifiers: Cardiomyopathy type: unspecified Qualified Code(s): I42.9 - Cardiomyopathy, unspecified - Time Spent With Patient Total time spent is greater than 50% in coordination of care (as documented) at patient's floor/unit and/or counseling patient: - Subjective Interval history: Patient sleeping quietly with snoring respirations. She did not awaken with my assessment. at bedside. States she appears uncomfortable when awake. - Constitutional General appearance: Present: no acute distress - Respiratory Additional comments: Respirations deep and regular. Diminished breath sounds lower lobes. - Cardiovascular Cardiovascular exam: Present: +S1, +S2 - GI/Abdominal GI/Abdominal exam: Present: diminished bowel sounds, distended - Additional comments: Bowser with juan diego urine - pink tinged in tubing - Extremities Exam Extremities exam: Present: normal capillary refill, normal inspection - Neurological Exam Additional comments: Patient sleeping soundly. She appeared comfortable and slept through my assessment. - Skin Skin exam: Present: dry, pallor, warm Palliative Quality Palliative Quality: Screen for Code Status: No (Comfort Care), Screen for Goals of Care: No, Screen for Pain: Yes, If Pain Regimen Started, Initiate Bowel Regimen: Yes, Screen for Nausea/Vomitting: Yes Code Status: 03/07/18 10:57 Resuscitation Status: Active [RES] Routine Comment: NO vasopressors Resuscitation Status: DNR-Comfort Care Consult Discharge Plan - Plan Referrals: NONE,PCP [Primary Care Provider] -
[2018-03-08] MEDS ORDERED: Atropine 1% Opth Drops 100 DROP/5 ML BOTTLE SL PRN (16:32)
[2018-03-08] MEDS: Scopolamine Patch 1.5 MG PATCH.TD72 TD SCH (17:39)
[2018-03-08] MEDS: Atropine Sulfate 1% 40 DROP/2 ML BOTTLE SL PRN (18:47)
[2018-03-08] MEDS: traZODone 50 MG TABLET PO SCH (21:34)
[2018-03-09] MEDS: Furosemide 20 MG/2 ML VIAL IVP SCH ×2 (07:34→16:40)
[2018-03-09] MEDS: OXYCODONE Oral CONC 10 MG/0.5 ML ORAL.SYG SL PRN (09:41)
[2018-03-09] MEDS: *HR* LORazepam Oral Conc 2 MG/ML PO PRN ×2 (09:42→22:36)
[2018-03-09] MEDS: Atropine Sulfate 1% 40 DROP/2 ML BOTTLE SL PRN ×3 (09:44→22:36)
--- NOTE | 2018-03-09 09:44 | Palliative Progress Note ---
Date of Encounter: 03/09/18 Time of Encounter: 09:40 - Assessment and plan (1) Abdominal pain Current Visit: No Status: Acute Assessment and plan: Continues with Fentanyl patch and Oxycodone for breakthrough pain. Oxycodone utilized x4 last 24 hours. Qualifiers: Abdominal location: generalized Qualified Code(s): R10.84 - Generalized abdominal pain (2) Agitation Current Visit: Yes Status: Acute Assessment and plan: Continue Haloperidol PRN. Utilized x2 last 24 hours. (3) Anxiety Current Visit: Yes Status: Acute Assessment and plan: Continue Lorazepam. Utilized x3 last 24 hours. (4) Goals of care, counseling/discussion Current Visit: Yes Status: Acute Assessment and plan: Family at bedside. States they are pleased with her care, and thankful for sales support associate have given. Her breathing pattern has changed drastically from yesterday. Appears imminent at this time. Continue GIP care and symptom management. (5) Metastatic adenocarcinoma Current Visit: Yes Status: Acute (6) Peritoneal carcinomatosis Current Visit: No Status: Suspected (7) Cardiomyopathy Current Visit: No Status: Acute Qualifiers: Cardiomyopathy type: unspecified Qualified Code(s): I42.9 - Cardiomyopathy, unspecified - Time Spent With Patient Total time spent is greater than 50% in coordination of care (as documented) at patient's floor/unit and/or counseling patient: 25 - 35 minutes - Subjective Interval history: Patient unresponsive. Respirations are irregular with 10-12 sec periods of apnea. Appears to be running fevers in pm. O2 sat 90% on room air. Family at bedside. - Constitutional Vitals: Abnormal lab results POC Glucose 137 mg/dL (70-99) H 03/08/18 19:01 General appearance: Present: no acute distress - Respiratory Additional comments: Rhonchi throughout anterior chest. Upper airway secretions more prominent tod ay. - Cardiovascular Cardiovascular exam: Present: irregular rhythm - GI/Abdominal GI/Abdominal exam: Present: diminished bowel sounds, distended, soft - Additional comments: Bowser with dk juan diego urine - Extremities Exam Extremities exam: Present: normal capillary refill, normal inspection - Neurological Exam Additional comments: Does not respond to verbal or tactile stimuli. Appears to gag some from secretions. - Skin Skin exam: Present: dry, warm Palliative Quality Palliative Quality: Screen for Code Status: No (Comfort Care), Screen for Goals of Care: No, Screen for Pain: Yes, If Pain Regimen Started, Initiate Bowel Regimen: Yes, Screen for Nausea/Vomitting: Yes Code Status: 03/07/18 10:57 Resuscitation Status: Active [RES] Routine Comment: NO vasopressors Resuscitation Status: DNR-Comfort Care - Labs Labs: Laboratory Results - last 24 hr 03/08/18 19:01 POC Glucose 137 H Consult Discharge Plan - Plan Referrals: NONE,PCP [Primary Care Provider] -
[2018-03-10] MEDS: OXYCODONE Oral CONC 10 MG/0.5 ML ORAL.SYG SL PRN ×2 (07:53→16:04)
[2018-03-10] MEDS: *HR* LORazepam Oral Conc 2 MG/ML PO PRN ×3 (07:54→21:23)
--- NOTE | 2018-03-10 09:03 | Palliative Progress Note ---
Date of Encounter: 03/10/18 Time of Encounter: 09:00 - Assessment and plan (1) Abdominal pain Current Visit: No Status: Acute Assessment and plan: Continue Fentanyl patch with Oxycodone for breakthrough pain. Fentanyl remains at 2mcg, has utilized Oxycodone for breakthrough x2 last 24 hours. Qualifiers: Abdominal location: generalized Qualified Code(s): R10.84 - Generalized abdominal pain (2) Agitation Current Visit: Yes Status: Acute (3) Anxiety Current Visit: Yes Status: Acute Assessment and plan: Lorazepam PRN. Has utilized x2 last 24hours. MOnitor and titrate as necessary. (4) Goals of care, counseling/discussion Current Visit: Yes Status: Acute Assessment and plan: Discussed with family at bedside. She declined yesterday, but now appears more stable. Family is hoping she survives today, as it is granddaughter birthday. She may ultimately need placement. Will re-evaluate in am. If no changes and symptoms remain well controlled, will touch base with collision worker regarding getting plan in place for possible discharge home or ECF. (5) Metastatic adenocarcinoma Current Visit: Yes Status: Acute (6) Peritoneal carcinomatosis Current Visit: No Status: Suspected (7) Cardiomyopathy Current Visit: No Status: Acute Qualifiers: Cardiomyopathy type: unspecified Qualified Code(s): I42.9 - Cardiomyopathy, unspecified - Time Spent With Patient Total time spent is greater than 50% in coordination of care (as documented) at patient's floor/unit and/or counseling patient: 25 - 35 minutes - Subjective Interval history: Patient resting with eyes closed. Moves arms occasionally towards face. Respirations irreg but appears in no distress. Family at bedside. Vitals fairly stable. Still with low grade fevers. SAO2 90-92% on room air. - Constitutional Vitals: Abnormal lab results POC Glucose 137 mg/dL (70-99) H 03/08/18 19:01 General appearance: Present: no acute distress - Respiratory Additional comments: Respirations irreg with occasional periods of apnea. Rhonchi throughout lung lemon, right greater than left. - Cardiovascular Cardiovascular exam: Present: irregular rhythm - GI/Abdominal GI/Abdominal exam: Present: diminished bowel sounds, distended, soft - Additional comments: Bowser with light juan diego urine - Extremities Exam Extremities exam: Present: normal capillary refill, normal inspection - Neurological Exam Additional comments: Minimally responsive, is moving arms occasionally this am. - Skin Skin exam: Present: dry, pallor, warm Palliative Quality Palliative Quality: Screen for Code Status: No (Comfort Care), Screen for Goals of Care: No, Screen for Pain: Yes, If Pain Regimen Started, Initiate Bowel Regimen: Yes, Screen for Nausea/Vomitting: Yes Code Status: 03/07/18 10:57 Resuscitation Status: Active [RES] Routine Comment: NO vasopressors Resuscitation Status: DNR-Comfort Care Consult Discharge Plan - Plan Referrals: NONE,PCP [Primary Care Provider] -
[2018-03-10] MEDS: *HR* FentaNYL PATCH 25 MCG PATCH TD SCH (10:10)
[2018-03-10] MEDS: Atropine Sulfate 1% 40 DROP/2 ML BOTTLE SL PRN ×3 (10:17→18:37)
[2018-03-11] MEDS: OXYCODONE Oral CONC 10 MG/0.5 ML ORAL.SYG SL PRN ×3 (10:09→20:16)
--- NOTE | 2018-03-11 11:03 | Palliative Progress Note ---
Date of Encounter: 03/11/18 Time of Encounter: 10:50 - Assessment and plan (1) Abdominal pain Current Visit: No Status: Acute Assessment and plan: Continue Fentanyl patch, will increase breakthrough Oxycodone to every hour PRN. Monitor. Qualifiers: Abdominal location: generalized Qualified Code(s): R10.84 - Generalized abdominal pain (2) Agitation Current Visit: Yes Status: Acute (3) Anxiety Current Visit: Yes Status: Acute Assessment and plan: Will increase frequency of Lorazepam to Every 2 hours PRN and monitor (4) Goals of care, counseling/discussion Current Visit: Yes Status: Acute Assessment and plan: No oral intake for 6 days. Will increase frequency of breakthrough medications, as she appears a little more restless. Continue GIP care. Family at bedside, provided emotional support. 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 Moves arms occasionally towards face. Respirations irreg but appears in no distress. Family at bedside. Vitals fairly stable. - Constitutional Vitals: Abnormal lab results POC Glucose 137 mg/dL (70-99) H 03/08/18 19:01 General appearance: Present: no acute distress - Respiratory Respiratory exam: Present: decreased breath sounds Additional comments: Respiratory slightly irregular. - Cardiovascular Cardiovascular exam: Present: irregular rhythm - GI/Abdominal GI/Abdominal exam: Present: distended, soft - Additional comments: Bowser with dark juan diego urine - Extremities Exam Extremities exam: Present: normal capillary refill, normal inspection - Neurological Exam Additional comments: Patient has opened eyes a few times this am. No verbal response. Does not follow commands - Skin Skin exam: Present: dry, warm Palliative Quality Palliative Quality: Screen for Code Status: No (Comfort Care), Screen for Goals of Care: No, Screen for Pain: Yes, If Pain Regimen Started, Initiate Bowel Regimen: Yes, Screen for Nausea/Vomitting: Yes Code Status: 03/07/18 10:57 Resuscitation Status: Active [RES] Routine Comment: NO vasopressors Resuscitation Status: DNR-Comfort Care Consult Discharge Plan - Plan Referrals: NONE,PCP [Primary Care Provider] -
[2018-03-11] MEDS: Scopolamine Patch 1.5 MG PATCH.TD72 TD SCH (15:59)
[2018-03-11] MEDS: *HR* LORazepam Oral Conc 2 MG/ML PO PRN (18:03)
[2018-03-11] MEDS: Atropine Sulfate 1% 40 DROP/2 ML BOTTLE SL PRN (20:18)
[2018-03-12] MEDS: OXYCODONE Oral CONC 10 MG/0.5 ML ORAL.SYG SL PRN ×3 (01:21→17:36)
--- NOTE | 2018-03-12 09:31 | Palliative Progress Note ---
Date of Encounter: 03/12/18 Time of Encounter: 09:00 - Assessment and plan (1) Abdominal pain Current Visit: No Status: Acute Assessment and plan: Continue Fentanyl patch. She has had increase in breakthrough medication and has utilized x4 last 24 hours. She may require patch increase soon. Qualifiers: Abdominal location: generalized Qualified Code(s): R10.84 - Generalized abdominal pain (2) Congestion of upper airway Current Visit: Yes Status: Acute Assessment and plan: Continue Scopolamine patch with atropine drops PRN. Utilized drops x2 last 24 hours. (3) Agitation Current Visit: Yes Status: Acute Assessment and plan: This has greatly diminished over the past 2-3 days, and she has not required any Haloperidol. (4) Anxiety Current Visit: Yes Status: Acute Assessment and plan: Continue Lorazepam. Utilized x2 last 24 hours. (5) Goals of care, counseling/discussion Current Visit: Yes Status: Acute Assessment and plan: Appears to have declined some over last 24 hours. Urine output less, less responsive. Will remain GIP over and reassess clinical situation on Thursday. (6) Metastatic adenocarcinoma Current Visit: Yes Status: Acute (7) Peritoneal carcinomatosis Current Visit: No Status: Suspected (8) Cardiomyopathy Current Visit: No Status: Acute Qualifiers: Cardiomyopathy type: unspecified Qualified Code(s): I42.9 - Cardiomyopathy, unspecified - Time Spent With Patient Total time spent is greater than 50% in coordination of care (as documented) at patient's floor/unit and/or counseling patient: - Subjective Interval history: Patient less responsive this am, some accessory muscle use with breathing noted. Vitals remain fairly stable. Multiple family members at bedside. - Constitutional Vitals: Abnormal lab results POC Glucose 137 mg/dL (70-99) H 03/08/18 19:01 General appearance: Present: no acute distress - Respiratory Respiratory exam: Present: decreased breath sounds Additional comments: Occasional rhonchi anteriorally right chest noted. - Cardiovascular Cardiovascular exam: Present: irregular rhythm - GI/Abdominal GI/Abdominal exam: Present: diminished bowel sounds, distended, soft - Additional comments: Urine dk juan [place]go with some bloody sediment - Extremities Exam Extremities exam: Present: normal capillary refill, normal inspection - Neurological Exam Additional comments: No response to tactile or verbal stimuli today. - Skin Skin exam: Present: dry, warm Palliative Quality Palliative Quality: Screen for Code Status: No (Comfort Care), Screen for Goals of Care: No, Screen for Pain: Yes, If Pain Regimen Started, Initiate Bowel Regimen: Yes, Screen for Nausea/Vomitting: Yes Code Status: 03/07/18 10:57 Resuscitation Status: Active [RES] Routine Comment: NO vasopressors Resuscitation Status: DNR-Comfort Care Consult Discharge Plan - Plan Referrals: NONE,PCP [Primary Care Provider] -
[2018-03-12] MEDS: Atropine Sulfate 1% 40 DROP/2 ML BOTTLE SL PRN ×2 (09:50→17:32)
[2018-03-13] MEDS: OXYCODONE Oral CONC 10 MG/0.5 ML ORAL.SYG SL PRN ×3 (01:06→21:54)
[2018-03-13] MEDS: Atropine Sulfate 1% 40 DROP/2 ML BOTTLE SL PRN ×3 (01:07→19:27)
--- NOTE | 2018-03-13 10:53 | Palliative Progress Note ---
Date of Encounter: 03/13/18 Time of Encounter: 08:50 - Assessment and plan (1) Goals of care, counseling/discussion Current Visit: No Status: Acute Assessment and plan: Patient is actively dying, has had no PO intake for 7 days. Hospice SW involved, if pt remains stable, will consider placement on Thursday. Family agreeable. (2) Agitation Current Visit: Yes Status: Acute Assessment and plan: Pt is less agitated, sleeping mostly, has not required any haldol. (3) Anxiety Current Visit: Yes Status: Acute Assessment and plan: pt Received Lorazepam 1 dose in 24 hrs. (4) Congestion of upper airway Current Visit: Yes Status: Acute Assessment and plan: Scopolamine patch in place, atropine prn. continue to have some weak cough and congestion (5) Abdominal pain Current Visit: No Status: Acute Assessment and plan: On fentanyl patch mcg, has required 4 prn doses in 24 hrs. will consider increasing the patch if need prn need continues to be >3 doses. Qualifiers: Abdominal location: generalized Qualified Code(s): R10.84 - Generalized abdominal pain (6) Metastatic adenocarcinoma Current Visit: Yes Status: Acute (7) Peritoneal carcinomatosis Current Visit: No Status: Suspected - Time Spent With Patient Total time spent is greater than 50% in coordination of care (as documented) at patient's floor/unit and/or counseling patient: 25 - 35 minutes - Subjective Interval history: Patient is somewhat responsive this morning, opens eyes and tracks to name calling, non verbal. Multiple family members present, including . - Constitutional Vitals: Abnormal lab results POC Glucose 137 mg/dL (70-99) H 03/08/18 19:01 Exam: General appearance: Present: no acute distress - Respiratory Respiratory exam: Present: decreased breath sounds Additional comments: Occasional rhonchi anteriorally right chest noted. - Cardiovascular Cardiovascular exam: Present: irregular rhythm - GI/Abdominal GI/Abdominal exam: Present: diminished bowel sounds, distended, soft - Additional comments: Urine dk juan [place]go with some bloody sediment - Extremities Exam Extremities exam: Present: normal capillary refill, normal inspection - Neurological Exam Additional comments: opens eyes to verbal and tactile stimuli, and tracks. non verbal, not following commands. - Skin Skin exam: Present: dry, warm Palliative Quality Palliative Quality: Screen for Code Status: No (Comfort Care), Screen for Goals of Care: No, Screen for Pain: Yes, If Pain Regimen Started, Initiate Bowel Regimen: Yes, Screen for Nausea/Vomitting: Yes Code Status: 03/07/18 10:57 Resuscitation Status: Active [RES] Routine Comment: NO vasopressors Resuscitation Status: DNR-Comfort Care Consult Discharge Plan - Plan Referrals: NONE,PCP [Primary Care Provider] -
[2018-03-13] MEDS: *HR* FentaNYL PATCH 25 MCG PATCH TD SCH (11:25)
[2018-03-13] MEDS: Haloperidol Oral Conc 10 MG/5 ML UDC PO PRN (14:02)
[2018-03-14] MEDS: *HR* LORazepam Oral Conc 2 MG/ML PO PRN ×2 (04:46→07:48)
[2018-03-14] MEDS: OXYCODONE Oral CONC 10 MG/0.5 ML ORAL.SYG SL PRN ×3 (09:28→17:29)
--- NOTE | 2018-03-14 11:42 | Palliative Progress Note ---
Date of Encounter: 03/14/18 Time of Encounter: 10:00 - Assessment and plan (1) Goals of care, counseling/discussion Current Visit: No Status: Acute Assessment and plan: Patient seems to have stabilized, although she has had no PO intake for 7 days. Hospice SW involved, if pt remains stable, will consider placement tomorrow. Family aware and agreeable. (2) Agitation Current Visit: Yes Status: Acute Assessment and plan: Pt is less agitated, sleeping mostly, has not required any haldol. (3) Anxiety Current Visit: Yes Status: Acute Assessment and plan: was more anxious overnight, pt Received Lorazepam 2 doses (4) Congestion of upper airway Current Visit: Yes Status: Acute Assessment and plan: Scopolamine patch in place, atropine prn. continue to have some weak cough and congestion (5) Abdominal pain Current Visit: No Status: Acute Assessment and plan: On fentanyl patch 25 mcg, has required 2 prn doses in 24 hrs. Qualifiers: Abdominal location: generalized Qualified Code(s): R10.84 - Generalized abdominal pain (6) Metastatic adenocarcinoma Current Visit: Yes Status: Acute (7) Peritoneal carcinomatosis Current Visit: No Status: Suspected - Time Spent With Patient Total time spent is greater than 50% in coordination of care (as documented) at patient's floor/unit and/or counseling patient: less than 15 minutes - Subjective Interval history: Patient just had a sponge bath and was more responsive this morning, opens eyes and tracks to name calling, non verbal. Attempted to offer a wet sponge, but she refused and cliched her teeth. No PO intake for more than a week. - Constitutional Vitals: Abnormal lab results POC Glucose 137 mg/dL (70-99) H 03/08/18 19:01 Exam: General appearance: Present: no acute distress - Respiratory Respiratory exam: Present: decreased breath sounds Additional comments: Occasional rhonchi anteriorally right chest noted. - Cardiovascular Cardiovascular exam: Present: irregular rhythm - GI/Abdominal GI/Abdominal exam: Present: diminished bowel sounds, distended, soft - Additional comments: Urine dk juan [place]go with some bloody sediment - Extremities Exam Extremities exam: Present: normal capillary refill, normal inspection - Neurological Exam Additional comments: opens eyes to verbal and tactile stimuli, and tracks. non verbal, not following commands. - Skin Skin exam: Present: dry, warm Palliative Quality Palliative Quality: Screen for Code Status: No (Comfort Care), Screen for Goals of Care: No, Screen for Pain: Yes, If Pain Regimen Started, Initiate Bowel Regimen: Yes, Screen for Nausea/Vomitting: Yes Code Status: 03/07/18 10:57 Resuscitation Status: Active [RES] Routine Comment: NO vasopressors Resuscitation Status: DNR-Comfort Care Consult Discharge Plan - Plan Referrals: NONE,PCP [Primary Care Provider] -
[2018-03-14] MEDS: Atropine Sulfate 1% 40 DROP/2 ML BOTTLE SL PRN ×2 (12:01→16:18)
[2018-03-14] MEDS: Scopolamine Patch 1.5 MG PATCH.TD72 TD SCH (16:18)
[2018-03-15] MEDS: Haloperidol Oral Conc 10 MG/5 ML UDC PO PRN (00:02)
[2018-03-15] MEDS: Atropine Sulfate 1% 40 DROP/2 ML BOTTLE SL PRN ×4 (00:03→21:06)
[2018-03-15] MEDS: OXYCODONE Oral CONC 10 MG/0.5 ML ORAL.SYG SL PRN ×4 (06:54→21:14)
[2018-03-15] MEDS ORDERED: *HR* FentaNYL PATCH 50 MCG PATCH TD SCH (09:30)
[2018-03-15] MEDS: Haloperidol Oral Conc 10 MG/5 ML UDC PO SCH ×3 (09:54→23:48)
--- NOTE | 2018-03-15 10:31 | Palliative Progress Note ---
Date of Encounter: 03/15/18 Time of Encounter: 09:00 - Assessment and plan (1) Abdominal pain Current Visit: No Status: Acute Assessment and plan: She appears more uncomfortable and restless this am. Family reports not as much response from breakthrough medications. Will increase Fentanyl patch to 50mcg and increase Oxycodone for breakthrough pain to 15mg. Qualifiers: Abdominal location: generalized Qualified Code(s): R10.84 - Generalized abdominal pain (2) Congestion of upper airway Current Visit: Yes Status: Acute Assessment and plan: Continue Scopolamine patch and Atropine drops PRN. (3) Agitation Current Visit: Yes Status: Acute Assessment and plan: Currently on PRN Haloperidol and has received x2 last 24 hours. Will scheduled every 6 hours to try and improve her restlessness and agitation. (4) Anxiety Current Visit: Yes Status: Acute Assessment and plan: Continue Lorazepam PRN - utilized x1 last 24 hours. (5) Goals of care, counseling/discussion Current Visit: Yes Status: Acute Assessment and plan: Planning for ECF placement will begin - licensed master social worker to meet with family today, however, she is more restless and appears uncomfortable. Pain medications will be increased today as well as Haldol will be scheduled. Did d/w Bonnie Couch, deli worker who will be here and discuss placement with family. Her condition may be declining, and if it appears is imminent, will continue GIP care. (6) Metastatic adenocarcinoma Current Visit: Yes Status: Acute (7) Peritoneal carcinomatosis Current Visit: No Status: Suspected (8) Cardiomyopathy Current Visit: No Status: Acute Qualifiers: Cardiomyopathy type: unspecified Qualified Code(s): I42.9 - Cardiomyopathy, unspecified - Time Spent With Patient Total time spent is greater than 50% in coordination of care (as documented) at patient's floor/unit and/or counseling patient: 25 - 35 minutes - Subjective Interval history: Patient restless this am, thrashing arms when touched. Family reports kicking of legs some as well. Increased respiratory congestions. Feels fevered - face flushed. Does not open eyes. and friend at bedside. - Constitutional Vitals: Abnormal lab results POC Glucose 137 mg/dL (70-99) H 03/08/18 19:01 General appearance: Present: mild distress - Respiratory Additional comments: Rhonchi noted throughout anterior chest. + upper airway congestion - Cardiovascular Cardiovascular exam: Present: tachycardia - GI/Abdominal GI/Abdominal exam: Present: distended, soft - Additional comments: Bowser with light juan [place]go urine - Extremities Exam Extremities exam: Present: normal capillary refill, normal inspection - Skin Skin exam: Present: dry, warm Palliative Quality Palliative Quality: Screen for Code Status: No (Comfort Care), Screen for Goals of Care: No, Screen for Pain: Yes, If Pain Regimen Started, Initiate Bowel Regimen: Yes, Screen for Nausea/Vomitting: Yes Code Status: 03/07/18 10:57 Resuscitation Status: Active [RES] Routine Comment: NO vasopressors Resuscitation Status: DNR-Comfort Care Consult Discharge Plan - Plan Referrals: NONE,PCP [Primary Care Provider] -
[2018-03-15] MEDS: Acetaminophen 650 MG RECTAL SUPP RC PRN (21:06)
[2018-03-16] MEDS: Haloperidol Oral Conc 10 MG/5 ML UDC PO SCH ×5 (04:54→20:05)
[2018-03-16] MEDS: Acetaminophen 650 MG RECTAL SUPP RC PRN (09:02)
[2018-03-16] MEDS: OXYCODONE Oral CONC 10 MG/0.5 ML ORAL.SYG SL PRN (09:02)
--- NOTE | 2018-03-16 11:56 | Palliative Progress Note ---
Date of Encounter: 03/16/18 Time of Encounter: 11:00 - Assessment and plan (1) Goals of care, counseling/discussion Current Visit: No Status: Acute Assessment and plan: Plannig for ECF placement was started, but pt now had a change in clinical status. Pain medication was increased yesterday, secretions are not yet well controlled despite increased doses of atropine. Patient is spiking fevers and required 2 doses of tylenol in 12 hours. D/w Bonnie Couch, orchid worker and with family. Will continue GIP care, and assess daily. (2) Agitation Current Visit: Yes Status: Acute Assessment and plan: Holdol q 6hrs scheduled, pt remains agitated. Will change frequency to q4hrs, hold for sedation. (3) Anxiety Current Visit: Yes Status: Acute Assessment and plan: continue Ativan prn (4) Congestion of upper airway Current Visit: Yes Status: Acute Assessment and plan: Scopolamine patch in place, atropine q1hr prn. (5) Abdominal pain Current Visit: No Status: Acute Assessment and plan: On fentanyl patch was increased to 50 mcg yesterday, has required 3 prn doses of oxycodone in 24 hrs. Qualifiers: Abdominal location: generalized Qualified Code(s): R10.84 - Generalized abdominal pain (6) Fever Current Visit: Yes Status: Acute Assessment and plan: Acetaminophen supp prn Qualifiers: Fever type: unspecified Qualified Code(s): R50.9 - Fever, unspecified (7) Metastatic adenocarcinoma Current Visit: Yes Status: Acute (8) Peritoneal carcinomatosis Current Visit: No Status: Suspected - Time Spent With Patient Total time spent is greater than 50% in coordination of care (as documented) at patient's floor/unit and/or counseling patient: 25 - 35 minutes - Subjective Interval history: Patient today was lethargic, did not open eyes to verbal or tactile stimuli. Per family she was restless overnight. She also has increased secretions and rattle, and is now spiking fever. - Constitutional Vitals: Abnormal lab results POC Glucose 137 mg/dL (70-99) H 03/08/18 19:01 Exam: General appearance: Present: mild distress - Respiratory Additional comments: Rhonchi noted throughout anterior chest. + upper airway congestion - Cardiovascular Cardiovascular exam: Present: tachycardia - GI/Abdominal GI/Abdominal exam: Present: distended, soft - Additional comments: Bowser with light juan [place]go urine - Extremities Exam Extremities exam: Present: normal capillary refill, normal inspection - Skin Skin exam: Present: dry, warm Palliative Quality Palliative Quality: Screen for Code Status: No (Comfort Care), Screen for Goals of Care: No, Screen for Pain: Yes, If Pain Regimen Started, Initiate Bowel Regimen: Yes, Screen for Nausea/Vomitting: Yes Code Status: 03/07/18 10:57 Resuscitation Status: Active [RES] Routine Comment: NO vasopressors Resuscitation Status: DNR-Comfort Care Consult Discharge Plan - Plan Referrals: NONE,PCP [Primary Care Provider] -
[2018-03-16] MEDS: Atropine Sulfate 1% 40 DROP/2 ML BOTTLE SL PRN (20:05)
[2018-03-17] MEDS: Haloperidol Oral Conc 10 MG/5 ML UDC PO SCH ×6 (00:30→20:18)
[2018-03-17] MEDS: Acetaminophen 650 MG RECTAL SUPP RC PRN (09:35)
--- NOTE | 2018-03-17 13:16 | Palliative Progress Note ---
Date of Encounter: 03/17/18 Time of Encounter: 11:00 - Assessment and plan (1) Goals of care, counseling/discussion Current Visit: No Status: Acute Assessment and plan: Planning for ECF placement in place, pt seems more lethargic today. Patient is sill spiking fevers and required 2 doses of tylenol in 12 hours. Patient still need GIP care for symptom management and daily medication adjustment. Will assess daily. D/w Bonnie Couch, ship worker and with family. (2) Agitation Current Visit: Yes Status: Acute Assessment and plan: Holdol frequency was changed to q4hrs, hold for sedation. Patient is more calm today. (3) Anxiety Current Visit: Yes Status: Acute Assessment and plan: continue Ativan prn (4) Congestion of upper airway Current Visit: Yes Status: Acute Assessment and plan: Scopolamine patch in place, atropine q1hr prn. Patient continues to have audible secretions (5) Abdominal pain Current Visit: No Status: Acute Assessment and plan: On fentanyl patch was increased to 50 mcg, has required 1 prn doses of oxycodone in 24 hrs. Qualifiers: Abdominal location: generalized Qualified Code(s): R10.84 - Generalized abdominal pain (6) Fever Current Visit: Yes Status: Acute Assessment and plan: Acetaminophen supp prn Qualifiers: Fever type: unspecified Qualified Code(s): R50.9 - Fever, unspecified (7) Metastatic adenocarcinoma Current Visit: Yes Status: Acute (8) Peritoneal carcinomatosis Current Visit: No Status: Suspected - Time Spent With Patient Total time spent is greater than 50% in coordination of care (as documented) at patient's floor/unit and/or counseling patient: 25 - 35 minutes - Subjective Interval history: Patient remains lethargic, but looks more peaceful. She did not open eyes to stimuli, but moved her left arm slightly. Multiple family members were present, including , son, Niece. Niece Heather stated that pt had a better night. Yesterday Haldol was scheduled q4hrs, and appears to help. She also received 1 prn dose of oxycodone overnight. - Constitutional Vitals: Abnormal lab results POC Glucose 137 mg/dL (70-99) H 03/08/18 19:01 Exam: General appearance: Present: mild distress - Respiratory Additional comments: Rhonchi noted throughout anterior chest. + upper airway congestion - Cardiovascular Cardiovascular exam: Present: tachycardia - GI/Abdominal GI/Abdominal exam: Present: distended, soft - Additional comments: Bowser with light juan [place]go urine - Extremities Exam Extremities exam: Present: normal capillary refill, normal inspection - Skin Skin exam: Present: dry, warm Palliative Quality Palliative Quality: Screen for Code Status: No (Comfort Care), Screen for Goals of Care: No, Screen for Pain: Yes, If Pain Regimen Started, Initiate Bowel Regimen: Yes, Screen for Nausea/Vomitting: Yes Code Status: 03/07/18 10:57 Resuscitation Status: Active [RES] Routine Comment: NO vasopressors Resuscitation Status: DNR-Comfort Care Consult Discharge Plan - Plan Referrals: NONE,PCP [Primary Care Provider] -
[2018-03-17] MEDS: Scopolamine Patch 1.5 MG PATCH.TD72 TD SCH (16:26)
[2018-03-17 19:29] VITALS: BP 119/70
[2018-03-17] MEDS: OXYCODONE Oral CONC 10 MG/0.5 ML ORAL.SYG SL PRN (22:20)
[2018-03-18] MEDS: Haloperidol Oral Conc 10 MG/5 ML UDC PO SCH ×2 (00:07→04:11)
--- NOTE | 2018-03-18 09:03 | Death Note ---
Discharge Sum: Summary - Date and Time Date of admission: 03/07/18 12:52 Date of : 03/18/18 Time of : 05:07 - Summary Details: Ms. Cunningham is a 77 year old female who presented to ER for c/o abdominal pain and distention. She had previous CT scan with mesenteric nodularity, and was scheduled for biopsy, however, her symptoms worsened and came to hospital. CT performed here did demonstrate extensive peritoneal carcinomatosis with small volume ascites. She had biopsy and paracentesis on 03/01/18. Pathology of omental biopsy revealed adenocarcinoma. She was also found to have UTI and ureteral calculus, urology consult was obtained and she had Cystoscopy/Pyelography and placement of right stent. Along with these conditions, she developed SVT and required adenosine, Vtach with spontaneous conversion, and then atrial fibrillation. Cardiology consult was obtained. Cardiology recommended conservative management with all her comorbid conditions. She also has anemia with hemoccult + stool - Gastroenterology is following. She had also been seen by Dr. Meraz for a new diagnosis of cirrhosis. Oncology has also seen patient, and offered palliative chemotherapy. Pt had episode of acute hypoxic respiratory failure with altered mental status this am. Possibly secondary to fluid overload. Lasix given and orded BID and CXR revealed pulmonary congestion. Patient EF 20-25%. Patient received haldol and ativan and is resting deeply. Bedside discussion with Azam and decision to de- escalate care decided. Patient will be admitted to inpatient GIP and made DNRCC - Comfort care. Terminal diagnosis metastatic adenocarcinoma of likely colon or small bowel origin. Patient peacefully on hospice GIP. - Additional Data Confirmation of as documented by pronouncing clinician: no pulse, no respirations, no heart sounds, pupils fixed and dilated Family: at bedside Attending/PCP notified?: Yes Attending physician: Jessi Russell MD Was code activated?: No Autopsy requested?: No bank examiner notified?: No Organ bank notified?: Yes Advance directives: Yes Hospice patient?: Yes Discharge Sum: Diag - PCOD Probable Cause of : Respiratory arrest Discharge Sum: Prov - Provider Primary care physician: PCP NONE Admitting clinician: Jessi Russell Attending physician on admission: Jessi Russell Consults: 03/07/18 10:57 Consult to Palliative Care [CONS] Routine Comment: Consulting Provider: Palliative Care Sammie Reason for Consult: symptom managemen Time Notified: 11:00 Call Completed: Yes
== END 2018-03-18 05:07 | disposition expired | DRG 374 ==
LOC: 2ANU 12:52
PROVIDERS: ADMIT Internal Medicine Hospice and Palliative Medicine; ATTEND Internal Medicine Hospice and Palliative Medicine